=== PATIENT | male | born 1955 | race Caucasian/White ===

== ENCOUNTER 2020-02-18 11:39 | Inpatient (IN) | payer MEDICARE ==
[2020-02-18] MEDS ORDERED: SODIUM CHLORIDE 0.9% 500 ML 500 ML IV STA (12:12)
[2020-02-18 12:34] LABS: Basophils # (A) 0.1 k/uL (0-0.2); Basophils % (A) 1 %; Eosinophils # (A) 0.6 k/uL (0-0.7); Eosinophils % (A) 7 %; HCT 47.2 % (39.0-53.0); Lymphocytes # (A) 2.5 k/uL (1.0-4.8); Lymphocytes % (A) 28 %; MCH 30.1 pg (25.0-35.0); MCHC 31.8 g/dL (31.0-37.0); MCV 94.8 fL (80.0-100.0); Mean Platelet Volume 8.3; Monocytes # (A) 0.6 k/uL (0-1.0); Monocytes % (A) 7 %; Neutrophils # (A) 4.9 k/uL (1.3-7.7); Neutrophils % (A) 56 %; Platelet Count 354 k/uL (150-450); RBC 4.98 m/uL (4.30-5.90); RDW 13.9 % (11.5-15.5); WBC 8.7 k/uL (3.8-10.6)
[2020-02-18 12:43] LABS: ALT 23 U/L (4-49); AST 29 U/L (17-59); African American GFR (CKD) >90 (>60 ml/min/1.73 sqM); Albumin 4.1 g/dL (3.5-5.0); Alkaline Phosphatase 100 U/L (38-126); Anion Gap 6 mmol/L; Blood Urea Nitrogen 12 mg/dL (9-20); Calcium 9.3 mg/dL (8.4-10.2); Carbon Dioxide 26 mmol/L (22-30); Chloride 104 mmol/L (98-107); Glucose 207 mg/dL (74-99); Non-African American GFR(CKD) >90 (>60 ml/min/1.73 sqM); Sodium 136 mmol/L (137-145); Total Bilirubin 1.1 mg/dL (0.2-1.3); Total Protein 7.2 g/dL (6.3-8.2)
[2020-02-18 12:45] LABS: Potassium 5.2 mmol/L (3.5-5.1)
--- NOTE | 2020-02-18 12:53 | XR ---
EXAMINATION TYPE: XR chest 2V DATE OF EXAM: 02/18/2020 COMPARISON: Chest x-ray 06/23/2014 HISTORY: Difficulty breathing, hemoptysis TECHNIQUE: Frontal and lateral views of the chest are obtained. FINDINGS: Airspace disease is present in the right lower lobe. Lucency centrally is suggested. Promi nent lung lines with flattening the hemidiaphragms suggests underlying COPD. No evident pneumothorax or pleural effusion. Cardiothymic style silhouette, pulmonary vascularity and grant are not significan tly changed. Aorta is dense. IMPRESSION: Findings likely represent pneumonia, somewhat atypical appearance, follow-up is recommen ded.
[2020-02-18] MEDS ORDERED: RX INFO: IV CONTRAST WAS GIVEN 1 EACH MISC MISCELLANE PRN (13:02)
--- NOTE | 2020-02-18 13:41 | ED ---
General Adult HPI - General Chief complaint: Shortness of Breath Stated complaint: Coughing up blood Time Seen by Provider: 02/18/20 11:54 Source: patient, RN notes reviewed Mode of arrival: ambulatory Limitations: no limitations - History of Present Illness Initial comments: 64-year-old male with a past medical history of hyperlipidemia, CAD presents to the emergency room for a chief complaint of coughing up blood. Patient has had a slight cough for the past 3 weeks. States that he has had slight blood-tinged sputum which is worse at night. Patient denies shortness of breath. He denies chest pain. He denies any other cold or flu symptoms. Denies fevers or chills.Patient has no other complaints at this time including shortness of breath, chest pain, abdominal pain, nausea or vomiting, headache, or visual changes. - Related Data Home Medications Medication Instructions Recorded Confirmed Aspirin EC [Ecotrin Low Dose] 81 mg PO DAILY 02/18/20 02/18/20 Atorvastatin [Lipitor] 40 mg PO HS 02/18/20 02/18/20 Isosorbide Mononitrate ER [Imdur] 30 mg PO DAILY 02/18/20 02/18/20 Metoprolol Tartrate 25 mg PO BID 02/18/20 02/18/20 glyBURIDE/METFORMIN HCL 2 tab PO HS 02/18/20 02/18/20 [glyBURIDE/METFORMIN HCL 5-500 mg] Allergies Allergy/AdvReac Type Severity Reaction Status Date / Time No Known Allergies Allergy Verified 02/18/20 14:09 Review of Systems ROS Statement: Those systems with pertinent positive or pertinent negative responses have been documented in the HPI. ROS Other: All systems not noted in ROS Statement are negative. Past Medical History Past Medical History: Coronary Artery Disease (CAD), Chest Pain / Angina, Hyperlipidemia, Myocardial Infarction ([place]) History of Any Multi-Drug Resistant Organisms: None Reported Past Surgical History: Heart Catheterization, Orthopedic Surgery Past Psychological History: No Psychological Hx Reported Smoking Status: Former smoker Past Alcohol Use History: Occasional Past Drug Use History: Marijuana General Exam Limitations: no limitations General appearance: alert, in no apparent distress Head exam: Present: atraumatic, normocephalic, normal inspection Eye exam: Present: normal appearance, PERRL, EOMI. Absent: scleral icterus, conjunctival injection, periorbital swelling ENT exam: Present: normal exam, mucous membranes moist Neck exam: Present: normal inspection, full ROM. Absent: tenderness, meningismus, lymphadenopathy Respiratory exam: Present: normal lung sounds bilaterally. Absent: respiratory distress, wheezes, rales, rhonchi, stridor Cardiovascular Exam: Present: regular rate, normal rhythm, normal heart sounds. Absent: systolic murmur, diastolic murmur, rubs, gallop, clicks GI/Abdominal exam: Present: soft, normal bowel sounds. Absent: distended, tenderness, guarding, rebound, rigid Neurological exam: Present: alert Course Vital Signs 02/18/20 11:41 Temperature 97.7 F Pulse Rate 80 Respiratory 18 Rate Blood Pressure 127/82 O2 Sat by Pulse 95 Oximetry Medical Decision Making - Medical Decision Making Vitals are stable. CBC CMP unremarkable. Patient does have hyperglycemia with a history of kidney disease. Potassium of 5.2 is hemolyzed. Chest x-ray did show a possible pneumonia with atypical appearance. CT was ordered. CT chest with contrast was ordered which shows a large cavitary lesion measuring 7.4 cm in the right lower lobe. Has a wall with intermediate thickness and extensive surrounding groundglass density. Correlate for atypical fungal or mycobacterial infections. Dr. Javier spoke with Dr. Kumari who requests consult to Dr. Rowe. Dr. Javier spoke with Dr. Chavez thinks this is more likely a abscess. Patient will be admitted with antibiotics under Dr. Rowe's recommendation. - Lab Data Result diagrams: 02/18/20 12:18 02/18/20 12:18 Lab Results 02/18/20 02/18/20 Range/Units 12:18 12:18 WBC 8.7 (3.8-10.6) k/uL RBC 4.98 (4.30-5.90) m/uL Hgb 15.0 (13.0-17.5) gm/dL Hct 47.2 (39.0-53.0) % MCV 94.8 (80.0-100.0) fL MCH 30.1 (25.0-35.0) pg MCHC 31.8 (31.0-37.0) g/dL RDW 13.9 (11.5-15.5) % Plt Count 354 (150-450) k/uL Neutrophils % 56 % Lymphocytes % 28 % Monocytes % 7 % Eosinophils % 7 % Basophils % 1 % Neutrophils # 4.9 (1.3-7.7) k/uL Lymphocytes # 2.5 (1.0-4.8) k/uL Monocytes # 0.6 (0-1.0) k/uL Eosinophils # 0.6 (0-0.7) k/uL Basophils # 0.1 (0-0.2) k/uL Sodium 136 L (137-145) mmol/L Potassium 5.2 H (3.5-5.1) mmol/L Chloride 104 (98-107) mmol/L Carbon Dioxide 26 (22-30) mmol/L Anion Gap 6 mmol/L BUN 12 (9-20) mg/dL Creatinine 0.76 (0.66-1.25) mg/dL Est GFR (CKD-EPI)AfAm >90 (>60 ml/min/1.73 sqM) Est GFR (CKD-EPI)NonAf >90 (>60 ml/min/1.73 sqM) Glucose 207 H (74-99) mg/dL Calcium 9.3 (8.4-10.2) mg/dL Total Bilirubin 1.1 (0.2-1.3) mg/dL AST 29 (17-59) U/L ALT 23 (4-49) U/L Alkaline Phosphatase 100 (38-126) U/L Total Protein 7.2 (6.3-8.2) g/dL Albumin 4.1 (3.5-5.0) g/dL Disposition Clinical Impression: Cavitary lesion of lung Disposition: ADMITTED IP TO THIS HOSP Condition: Fair Is patient prescribed a controlled substance at d/c from ED?: No Referrals: Marcellus Raygoza DO [Primary Care Provider] - 1-2 days Time of Disposition: 14:56
--- NOTE | 2020-02-18 13:57 | CT ---
EXAMINATION TYPE: CT chest w con DATE OF EXAM: 02/18/2020 COMPARISON: Radiograph 02/18/2020 HISTORY: 64-year-old male Shortness of breath with hemoptysis TECHNIQUE: Contiguous axial scanning of the chest after the administration of 100 mL of Isovue 300. Coronal/sagittal reconstructions performed. CT DLP: 661.9mGycm. Automatic exposure control utilized for a dose reduction. FINDINGS: Heart normal size without pericardial effusion. Three-vessel coronary artery calcifications are prese nt. Aorta normal caliber with very direct takeoff of the left vertebral artery directly from the aortic a rch. Borderline size left paratracheal lymph nodes measure up to 1 cm. Frankly enlarged subcarinal lymph node at 4.2 x 3.4 cm. Right hilar lymph node at 2.9 x 1.6 cm an additional smaller right-sided bronchial lymph nodes measur ing up to 1.8 x 1.1 cm. There is a cavitary lesion with intermediate thickened wall measuring 7.4 x 5.0 x 6.6 cm within the r ight lower lobe. Extensive surrounding groundglass opacity. Smaller area of cavitation just below lorena suring 1.9 cm. Nonspecific 6 mm posterior left upper lobe pulmonary nodule, axial image 17 should be reassessed at f ollow-up. Suspect underlying hepatic steatosis. Slight thickening of the right adrenal gland up to 2.3 x 1.2 cm is nonspecific. Bones: Moderate degenerative disc disease mid to lower thoracic spine. No osseous destructive process . IMPRESSION: 1. Large cavitary lesion measuring 7.4 cm in the right lower lobe has a wall with intermediate thickn ess and extensive surrounding groundglass density. Correlate for atypical fungal or mycobacterial inf ections. Given a second adjacent smaller area of 1.9 cm cavitation just below and the associated grou ndglass, an infectious etiology is favored over cavitary neoplasm. 2. Right hilar and subcarinal lymphadenopathy measuring up to 4.3 cm. Probably reactive. This should be followed to exclude the possibility of metastatic disease. 3. A 6 mm left upper lobe pulmonary nodule should also be reassessed at follow-up. 4. A 2.3 cm right adrenal nodule. Follow-up recommended. Statistically, a benign adrenal adenoma is s uspected.
[2020-02-18] MEDS ORDERED: PNEUMONIA PROTOCOL UTILIZED 1 EACH MISC PO PRN (14:28)
[2020-02-18] MEDS ORDERED: IPRATROPIUM-ALBUTEROL 3 ML NEB INHALATION PRN (14:28)
[2020-02-18] MEDS ORDERED: VANCOMYCIN IV PER PHARMACY 1 EACH MISC MISCELLANE PRN (14:41)
[2020-02-18] MEDS ORDERED: AMPICILLIN-SULBACTAM 3 GM in SODIUM CHLORIDE 0.9% 100 ML IVPB STA (14:41)
[2020-02-18] MEDS ORDERED: VANCOMYCIN 1,750 MG in SODIUM CHLORIDE 0.9% 500 ML 500 ML IVPB ONE (15:00)
[2020-02-18] MEDS ORDERED: IPRATROPIUM-ALBUTEROL 3 ML NEB INHALATION SCH (16:00)
[2020-02-18] MEDS ORDERED: ALBUTEROL HFA INHALER INHALATION PRN (16:13)
[2020-02-18] MEDS: AMPICILLIN-SULBACTAM 3 GM in SODIUM CHLORIDE 0.9% 100 ML IVPB SCH ×2 (16:31→23:41)
[2020-02-18] MEDS: ALBUTEROL HFA INHALER INHALATION SCH ×2 (17:59→23:24)
[2020-02-18] MEDS: SODIUM CHLORIDE 0.9% 1,000 ML IV SCH ×2 (20:29→23:42)
[2020-02-18] MEDS: HEPARIN SODIUM,PORCINE 5,000 UNIT/ML 1 ML VIAL SQ SCH (21:24)
[2020-02-18] MEDS: ATORVASTATIN 40 MG TAB PO SCH (21:30)
[2020-02-18] MEDS: METOPROLOL TARTRATE 25 MG TAB PO SCH (21:30)
--- NOTE | 2020-02-18 22:14 | P.HPIM ---
History of Present Illness H&P Date: 02/18/20 Chief Complaint: Severe dyspnea and shortness of breath, hemoptysis and cavi tation in the ri 64-year-old mildly overweight male one of Dr. Levin patient with past medical history of coronary artery disease, diabetes, hypertension, COPD and mild PAD who is a former smoker pack-a-day for over 40 years had a quit 4 years ago who has not been hospitalized in a while apparently developed to have significant and worsening shortness of breath for the last 3 weeks become much worse last few days patient developed to have hemoptysis with productive cough along with significant shortness of breath with minimum exertion symptoms become much worse associated with fever and chills. Patient has not been hospitalized recently or exposed to any infectious process including Covid 19 or tuberculosis. He presented to the emergency department with above symptoms was seen and evaluated surprisingly his white blood cell was normal blood sugar was mildly elevated chest x-ray showed infection with pneumonia on the right lower lobe, CT of the chest showed large cavitation of 7.4 cm of the right lower lobe surrounded with groundglass an infectious etiology is favored over cavitary neoplasm finding might be consistent with atypical fungal or mycobacterial infection also had right hilar and subcarinal lymphadenopathy measuring up to 4.3 cm probably reactive cannot exclude the possibility of metastasis, 6 mm left upper lobe pulmonary nodular, 2.3 cm right adrenal nodular. Patient was started on Unasyn along with vancomycin updraft treatment was start steroid as well co nsult pulmonary and prepare for possible bronchoscopy and further management might require bronchoscopy and biopsy for further diagnosis. Review of Systems CONSTITUTIONAL: Well-developed no acute respiratory distress. Mildly overweight EYES: No icterus sclerae, no conjunctivitis. EARS, NOSE, MOUTH, THROAT, and FACE: No sore throat, lymphadenopathy, carotid bruits or deformity. RESPIRATORY: Positive shortness of breath cough and wheezes with cavitary infection in the right lower lobe.. CARDIOVASCULAR: Positive PND orthopnea palpitations. GASTROINTESTINAL: No Abd pain, Nausea or vomiting, no Diarrhea or constipation, No GI Bleed, no distention or masses. GENITOURINARY: Negative for Hematuria or UTI, no kidney stones. INTEGUMENT/BREAST: Negative for any muscular injury with mild osteoarthritis.. HEMATOLOGIC/LYMPHATIC: Negative for bleed or purpura. MUSCULOSKELTAL: Negative for Myalgia or arthralgia. NEURLOGICAL: No LOC, Sz or syncope, blurred vision dizziness or abnormality.. BEHAVIORAL/PSYCH: Negative. ENDOCRINE: Negative. Social history: Patient quit smoking 4 years ago he smoked pack a day for 40 years, drinks alcohol socially, no sign of obstructive sleep apnea patient is never had any children. Family history: Father age 80 from CAD, mother in her 80s from CAD, patient had 5 siblings 3 over the past 1 from diabetes, one from CAD, and one from lung cancer. 2 siblings are living with diabetes. All systems: negative Constitutional: Denies chills, Denies fever Eyes: denies blurred vision, denies pain Ears, nose, mouth and throat: Denies headache, Denies sore throat Cardiovascular: Denies chest pain, Denies shortness of breath Respiratory: Denies cough Gastrointestinal: Denies abdominal pain, Denies diarrhea, Denies nausea, Denies vomiting Musculoskeletal: Denies myalgias Integumentary: Denies pruritus, Denies rash Neurological: Denies numbness, Denies weakness Psychiatric: Denies anxiety, Denies depression Endocrine: Denies fatigue, Denies weight change Past Medical History Past Medical History: Coronary Artery Disease (CAD), Chest Pain / Angina, Hyperlipidemia, Myocardial Infarction ([place]) History of Any Multi-Drug Resistant Organisms: None Reported Past Surgical History: Heart Catheterization, Orthopedic Surgery Past Psychological History: No Psychological Hx Reported Smoking Status: Former smoker Past Alcohol Use History: Occasional Past Drug Use History: Marijuana Medications and Allergies Home Medications Medication Instructions Recorded Confirmed Type Aspirin EC [Ecotrin Low Dose] 81 mg PO DAILY 02/18/20 02/18/20 History Atorvastatin [Lipitor] 40 mg PO HS 02/18/20 02/18/20 History Isosorbide Mononitrate ER [Imdur] 30 mg PO DAILY 02/18/20 02/18/20 History Metoprolol Tartrate 25 mg PO BID 02/18/20 02/18/20 History glyBURIDE/METFORMIN HCL 2 tab PO HS 02/18/20 02/18/20 History [glyBURIDE/METFORMIN HCL 5-500 mg] Allergies Allergy/AdvReac Type Severity Reaction Status Date / Time No Known Allergies Allergy Verified 02/18/20 14:09 Physical Exam Vitals: Vital Signs Temp Pulse Resp BP Pulse Ox 02/18/20 16:42 95 18 119/85 95 02/18/20 11:41 97.7 F 80 18 127/82 95 Intake and Output 02/18/20 02/18/20 02/18/20 06:59 14:59 22:59 Other: Weight 102.058 kg General Appearance: Alert, cooperative, no distress, appears stated age. Neck HEENT: Supple, no lymphadenopathy, no thyroid enlargement, no carotid bruits. Lungs: Decreased breath sound bilaterally with fine rhonchi positive crackles in the bases with mild expiratory wheezes. Chest Wall: Chest wall normal expansion with deep inspiration no tenderness and no deformity was found on exam, no costochondral pain or discomfort. Heart: Regular rate and rhythm, S1, S2 normal, no murmur, rub or gallop. Back: Symmetric, no curvature, ROM normal, no CVA tenderness. Abdomen: Soft, non-tender, bowel sounds active all four quadrants, no masses, no organomegaly. Extremities: Extremities normal, atraumatic, no cyanosis or edema. Pulses: 2+ and symmetric. Skin: Skin color, texture, tugor normal, no rashes or lesions. Neurologic: Alert oriented x3 cranial nerves II through XII intact, no motor deficit, no abnormal balance or gait. Results CBC & Chem 7: 02/18/20 12:18 02/18/20 12:18 Labs: Abnormal Lab Results - Last 24 Hours (Table) 02/18/20 Range/Units 12:18 Sodium 136 L (137-145) mmol/L Potassium 5.2 H (3.5-5.1) mmol/L Glucose 207 H (74-99) mg/dL Thrombosis Risk Factor Assmnt - DVT/VTE Prophylaxis DVT/VTE Prophylaxis: Pharmacologic Prophylaxis ordered, Mechanical Prophylaxis ordered Assessment and Plan Assessment: 1 severe dyspnea and shortness of breath: Patient be admitted to the hospital, continue Unasyn along with vancomycin, consult pulmonary start steroids along with updraft treatment and Pulmicort try to come with tissue diagnosis and cult ure if possible. 2 large cavitary in the right lower lobe with the possibility of infection versus malignancy, further management including biopsy might be highly recommended. 3 possible lung metastasis in the mitchell-cranial area: Again could be lung cancer with metastasis which peaked stage III lung cancer. 4 CAD: Patient seen cardiology regular basis continue medical management. 5 type 2 diabetes: Remain on oral hypoglycemic agent continue Accu-Chek with sliding scales coverage for now diet controlled. 6 hyperlipidemia: Remain on atorvastatin 40 mg daily. 7 hypertension: Continue metoprolol titrate 25 mg twice a day. 8 electrolyte imbalance: Remain on with hydration found mild hyperkalemia. 9 DVT prophylaxis: Patient be on heparin subcutaneous. 10 GI prophylaxis: Patient be on Pepcid 20 mg daily. CODE STATUS: Full code. Admit patient to the inpatient service for more than 2 night stay.
[2020-02-19] MEDS: VANCOMYCIN 1,750 MG in SODIUM CHLORIDE 0.9% 500 ML 500 ML IVPB SCH ×2 (05:39→17:35)
[2020-02-19 07:26] LABS: Glucose,Whole Blood 204 mg/dL (75-99)
[2020-02-19] MEDS: ALBUTEROL HFA INHALER INHALATION SCH ×4 (07:54→19:11)
--- NOTE | 2020-02-19 08:34 | XR ---
EXAMINATION TYPE: XR chest 1V portable DATE OF EXAM: 02/19/2020 COMPARISON: 02/18/2020 chest x-ray and CT chest INDICATION: Pneumonia TECHNIQUE: Single frontal view of the chest is obtained. FINDINGS: The heart size is normal. The pulmonary vasculature is normal. There is a right lower lobe infiltrate. Correlate for pneumonia. There may be some central hypodensit y. Cavitation is a large air bulla as evident on the CT is identified IMPRESSION: 1. Right lower lobe infiltrate, stable from comparison
[2020-02-19] MEDS: AMPICILLIN-SULBACTAM 3 GM in SODIUM CHLORIDE 0.9% 100 ML IVPB SCH ×2 (08:41→17:02)
[2020-02-19] MEDS: METOPROLOL TARTRATE 25 MG TAB PO SCH ×2 (08:42→20:17)
[2020-02-19] MEDS: ISOSORBIDE MONONITRATE ER 30 MG TAB.ER.24H PO SCH (08:42)
[2020-02-19] MEDS: FAMOTIDINE 20 MG TAB PO SCH (08:43)
[2020-02-19] MEDS: ASPIRIN 81 MG PO SCH (08:43)
[2020-02-19] MEDS: HEPARIN SODIUM,PORCINE 5,000 UNIT/ML 1 ML VIAL SQ SCH ×2 (08:43→20:17)
[2020-02-19 09:23] LABS: African American GFR (CKD) 107.9 (60.0-200.0); Non-African American GFR(CKD) 93.1 (60.0-200.0)
[2020-02-19] MEDS: SODIUM CHLORIDE 0.9% 1,000 ML IV SCH (11:20)
[2020-02-19 12:12] LABS: Glucose,Whole Blood 248 mg/dL (75-99)
--- NOTE | 2020-02-19 13:49 | P.PN ---
Subjective Progress Note Date: 02/19/20 HISTORY OF PRESENT ILLNESS 64-year-old mildly overweight male one of Dr. Levin patient with past medical history of coronary artery disease, diabetes, hypertension, COPD and m ild PAD who is a former smoker pack-a-day for over 40 years had a quit 4 years ago who has not been hospitalized in a while apparently developed to have significant and worsening shortness of breath for the last 3 weeks become much worse last few days patient developed to have hemoptysis with productive cough along with significant shortness of breath with minimum exertion symptoms become much worse associated with fever and chills. Patient has not been hospitalized recently or exposed to any infectious process including Covid 19 or tuberculosis. He presented to the emergency department with above symptoms was seen and evaluated surprisingly his white blood cell was normal blood sugar was mildly elevated chest x-ray showed infection with pneumonia on the right lower lobe, CT of the chest showed large cavitation of 7.4 cm of the right lower lobe surrounded with groundglass an infectious etiology is favored over cavitary neoplasm finding might be consistent with atypical fungal or mycobacterial infection also had right hilar and subcarinal lymphadenopathy measuring up to 4.3 cm probably reactive cannot exclude the possibility of metastasis, 6 mm left upper lobe pulmonary nodular, 2.3 cm right adrenal nodular. Patient was started on Unasyn along with vancomycin updraft treatment was start steroid as well consult pulmonary and prepare for possible bronchoscopy and further management might require bronchoscopy and biopsy for further diagnosis. 02/18: The patient is in TB isolation. We will add in Covid and influenza testing. Patient is followed by Dr. Rowe and patient may require bronchoscopy early next week. Sputum culture was sent this morning. Patient continues to have cough with sputum and hemoptysis. Breathing status is stable and improved from yesterday. He has been afebrile, heart rate 81, blood pressure 131/74, pulse ox 93% on room air. Patient is currently on Unasyn and vancomycin. Repeat chest x-ray reveals right lower lobe infiltrate and stable. REVIEW OF SYSTEMS CONSTITUTIONAL: Well-developed no acute respiratory distress. Mildly overweight. No fevers. EYES: No icterus sclerae, no conjunctivitis. EARS, NOSE, MOUTH, THROAT, and FACE: No sore throat, lymphadenopathy, carotid bruits or deformity. RESPIRATORY: Positive shortness of breath cough and wheezes with cavitary infection in the right lower lobe.. CARDIOVASCULAR: Positive PND orthopnea palpitations. GASTROINTESTINAL: No Abd pain, Nausea or vomiting, no Diarrhea or constipation, No GI Bleed, no distention or masses. GENITOURINARY: Negative for Hematuria or UTI, no kidney stones. INTEGUMENT/BREAST: Negative for any muscular injury with mild osteoarthritis.. HEMATOLOGIC/LYMPHATIC: Negative for bleed or purpura. MUSCULOSKELTAL: Negative for Myalgia or arthralgia. NEURLOGICAL: No LOC, Sz or syncope, blurred vision dizziness or abnormality.. BEHAVIORAL/PSYCH: Negative. ENDOCRINE: Negative. PHYSICAL EXAMINATION General Appearance: Alert, cooperative, no distress, appears stated age. Patient is in no acute distress. Neck HEENT: Supple, no lymphadenopathy, no thyroid enlargement, no carotid bruits. Lungs: Decreased breath sound bilaterally with fine rhonchi positive crackles in the bases with mild expiratory wheezes. Chest Wall: Chest wall normal expansion with deep inspiration no tenderness and no deformity was found on exam, no costochondral pain or discomfort. Heart: Regular rate and rhythm, S1, S2 normal, no murmur, rub or gallop. Back: Symmetric, no curvature, ROM normal, no CVA tenderness. Abdomen: Soft, non-tender, bowel sounds active all four quadrants, no masses, no organomegaly. Extremities: Extremities normal, atraumatic, no cyanosis or edema. Pulses: 2+ and symmetric. Skin: Skin color, texture, tugor normal, no rashes or lesions. Neurologic: Alert oriented x3 cranial nerves II through XII intact, no motor deficit, no abnormal balance or gait. ASSESSMENT AND PLAN 1 severe dyspnea and shortness of breath with possible right lower lobe infiltrate or pneumonia, rule out infectious source, malignancy: Continue Unasyn along with vancomycin, consult pulmonary start steroids along with updraft treatment and Pulmicort try to come with tissue diagnosis and culture if possible. 2 large cavitary in the right lower lobe with the possibility of infection versus malignancy, further management including biopsy might be highly recommended. 3 possible lung metastasis in the mitchell-cranial area: Again could be lung cancer with metastasis which peaked stage III lung cancer. 4 CAD: Patient seen cardiology regular basis continue medical management. 5 type 2 diabetes: Remain on oral hypoglycemic agent continue Accu-Chek with sliding scales coverage for now diet controlled. 6 hyperlipidemia: Remain on atorvastatin 40 mg daily. 7 hypertension: Continue metoprolol titrate 25 mg twice a day. 8 electrolyte imbalance: Remain on with hydration found mild hyperkalemia. 9 DVT prophylaxis: Patient be on heparin subcutaneous. 10 GI prophylaxis: Patient be on Pepcid 20 mg daily. CODE STATUS: Full code. DISCHARGE PLAN Return home early to mid next week expected. Impression and plan of care have been directed as dictated by the signing physician. Ciara Wallis nurse practitioner acting as scribe for signing physician. Objective - Vital Signs Vital signs: Vital Signs Temp 98.0 F 02/19/20 05:00 Pulse 81 02/19/20 05:00 Resp 18 02/19/20 05:00 BP 131/74 02/19/20 05:00 Pulse Ox 93 L 02/19/20 05:00 Intake & Output 02/18/20 02/19/20 02/19/20 18:59 06:59 18:59 Intake Total 3380 Balance 3380 Weight 102.058 kg Intake: Intake, IV Titration 2300 Amount Ampicillin-Sulbactam 3 gm 100 In Sodium Chloride 0.9% 100 ml @ 200 mls/hr IVPB ONCE STA Rx#:[id number] Sodium Chloride 0.9% 1, 1200 000 ml @ 100 mls/hr IV . Q10H DIA Rx#:[id number] Vancomycin 1,750 mg In 500 Sodium Chloride 0.9% 500 ml 500 ml @ 167 mls/hr IVPB ONCE ONE Rx#: [id number] Vancomycin 1,750 mg In 500 Sodium Chloride 0.9% 500 ml 500 ml @ 167 mls/hr IVPB Q12H DIA Rx#: [id number] Oral 1080 Other: # Voids 2 - Labs CBC & Chem 7: 02/18/20 12:18 02/19/20 05:53 Labs: Abnormal Lab Results - Last 24 Hours (Table) 02/18/20 02/19/20 Range/Units 12:18 07:18 Sodium 136 L (137-145) mmol/L Potassium 5.2 H (3.5-5.1) mmol/L Glucose 207 H (74-99) mg/dL POC Glucose (mg/dL) 204 H (75-99) mg/dL
--- NOTE | 2020-02-19 15:12 | P.CNPUL ---
History of Present Illness Consult date: 02/19/20 Requesting physician: Warren Simeon Reason for consult: other (Hemoptysis) Chief complaint: Hemoptysis History of present illness: This is a very pleasant 64-year-old gentleman who follows with Dr. Raygoza as his primary care provider. He has history of diabetes mellitus, hypertension, hyperlipidemia, obesity a former smoker, occasional marijuana use. He presented to the emergency room yesterday after developing worsening hemoptysis. He states he has been coughing up blood for approximately 3 weeks now. He states he has been very active and no other symptoms. He's been hunting, out on his ATV and doing physical work. No fever, chills or night sweats. No nausea, vomiting or diarrhea. Denies any weight loss. Denies any recent travel. Denies any recent pneumonias. He has been coughing up blood on nearly a daily basis. Computed tomography scan of the chest reveals a large cavitary lesion measuring 7.4 cm in the right lower lobe with a wall with intermediate thickness and extensive surrounding groundglass density. Suspicious for atypical fungal or mycobacterial infections. There is a second adjacent smaller area of 1.9 cm just below with the associated groundglass favoring infectious over neoplasm. There is a right hilar and subcarinal lymphadenopathy measuring up to 4.3 cm suspect reactive. Cannot exclude metastatic disease. There is a 6 mm left upper lobe nodule. A 2.3 cm right adrenal nodule, benign adrenal adenoma is suspected. He is seen today in consultation on the regular medical floor. He is in TB isolation precautions. He is awake and alert in no acute distress. He denies any shortness of breath. Continues to cough up bloody sputum. Sample of which will be sent to the lab. Continues to deny any other symptoms. He remains afebrile. Hemodynamically stable. Maintain O2 saturations in the 90s on room air. White count 8.7. Hemoglobin 15.0. Sodium 136. Potassium 5.2. Creatinine 0.76. Influenza screen negative. CoVID 19 screen pending. Currently on vancomycin and Unasyn. Review of Systems REVIEW OF SYSTEMS: CONSTITUTIONAL: Denies any recent significant weight loss or weight gain. EYES: Denies change in vision. EARS, NOSE, MOUTH, THROAT: Denies headaches, denies sore throat. CARDIOVASCULAR: Denies chest pain, palpitations or syncopal episodes. RESPIRATORY: Hemoptysis. Denies shortness of breath, cough, congestion. GASTROINTESTINAL: Denies change in appetite, denies abdominal pain GENITOURINARY: Denies hematuria, denies infections. MUSKULOSKELETAL: Denies pain, denies swelling. INTEGUMENTARY: Denies rash, denies eczema. NEUROLOGICAL: Denies recent memory loss, no recent seizure activity. PSYCHIATRIC: Denies anxiety, denies depression. HEMATOLOGIC/LYMPHATIC: Denies anemia, denies enlarged lymph nodes. Past Medical History Past Medical History: Coronary Artery Disease (CAD), Chest Pain / Angina, Hyperlipidemia, Myocardial Infarction ([place]) History of Any Multi-Drug Resistant Organisms: None Reported Past Surgical History: Heart Catheterization, Orthopedic Surgery Past Psychological History: No Psychological Hx Reported Smoking Status: Former smoker Past Alcohol Use History: Occasional Past Drug Use History: Marijuana Medications and Allergies Home Medications Medication Instructions Recorded Confirmed Type Aspirin EC [Ecotrin Low Dose] 81 mg PO DAILY 02/18/20 02/18/20 History Atorvastatin [Lipitor] 40 mg PO HS 02/18/20 02/18/20 History Isosorbide Mononitrate ER [Imdur] 30 mg PO DAILY 02/18/20 02/18/20 History Metoprolol Tartrate 25 mg PO BID 02/18/20 02/18/20 History glyBURIDE/METFORMIN HCL 2 tab PO HS 02/18/20 02/18/20 History [glyBURIDE/METFORMIN HCL 5-500 mg] Allergies Allergy/AdvReac Type Severity Reaction Status Date / Time No Known Allergies Allergy Verified 02/18/20 14:09 Physical Exam Vitals: Vital Signs Temp Pulse Pulse Resp BP BP Pulse Ox 02/19/20 13:00 98.1 F 79 17 112/72 94 L 02/19/20 05:00 98.0 F 81 18 131/74 93 L 02/19/20 00:00 22 02/18/20 21:36 98 F 106 H 21 142/70 94 L 02/18/20 21:32 98 F 106 H 21 142/70 94 L 02/18/20 18:00 119/85 02/18/20 17:30 119/85 02/18/20 17:00 119/85 94 L 02/18/20 16:42 95 18 119/85 95 02/18/20 16:34 95 Intake and Output 02/18/20 02/19/20 02/19/20 22:59 06:59 14:59 Intake Total 1720 1660 Balance 1720 1660 Intake: Intake, IV Titration 1000 1300 Amount Ampicillin-Sulbactam 3 gm 100 In Sodium Chloride 0.9% 100 ml @ 200 mls/hr IVPB ONCE STA Rx#:[id number] Sodium Chloride 0.9% 1, 400 800 000 ml @ 100 mls/hr IV . Q10H [facility] Rx#:[id number] Vancomycin 1,750 mg In 500 Sodium Chloride 0.9% 500 ml 500 ml @ 167 mls/hr IVPB ONCE ONE Rx#: [id number] Vancomycin 1,750 mg In 500 Sodium Chloride 0.9% 500 ml 500 ml @ 167 mls/hr IVPB Q12H [facility] Rx#: [id number] Oral 720 360 Other: Voiding Method Toilet # Voids 1 2 GENERAL EXAM: Alert, pleasant 64-year-old gentleman, on room air comfortable in no apparent distress. HEAD: Normocephalic. EYES: Normal reaction of pupils, equal size. NOSE: Clear with pink turbinates. THROAT: No erythema or exudates. NECK: No masses, no JVD. CHEST: No chest wall deformity. LUNGS: Equal air entry with scattered rhonchi, crackles in the right posterior base. CVS: S1 and S2 normal with no audible murmur, regular rhythm. ABDOMEN: No hepatosplenomegaly, normal bowel sounds, no guarding or rigidity. SPINE: No scoliosis or deformity SKIN: No rashes CENTRAL NERVOUS SYSTEM: No focal deficits, tone is normal in all 4 extremities. EXTREMITIES: There is no peripheral edema. No clubbing, no cyanosis. Peripheral pulses are intact. Results - Laboratory Findings CBC and BMP: 02/18/20 12:18 02/19/20 05:53 Abnormal lab findings: Abnormal Labs 02/18/20 02/19/20 02/19/20 12:18 05:53 07:18 Sodium 136 L Potassium 5.2 H Glucose 207 H POC Glucose (mg/dL) 204 H C-Reactive Protein 23.5 H 02/19/20 12:01 Sodium Potassium Glucose POC Glucose (mg/dL) 248 H C-Reactive Protein - Diagnostic Findings Chest x-ray: image reviewed CT scan - chest: image reviewed Assessment and Plan Assessment: 1 Hemoptysis secondary to large cavitary lesion measuring 7.4 cm in the right lower lobe with a wall with an term immediate thickness and extensive surrounding groundglass density. Suspect atypical fungal or mycobacterial infection. There is a second adjacent smaller area of 1.9 cm cavitation just below the associated groundglass with infectious etiology favored over cavitary neoplasm. 2 Right hilar and subcarinal lymphadenopathy measuring up to 4.3 cm. Suspect reactive. Cannot completely exclude metastatic disease. Incidental 6 mm left upper lobe pulmonary nodule. 3 2.3 cm right adrenal nodule suspect benign adrenal adenoma versus metastasis. 4 History of significant 40 year smoking history however quit 4 years ago. Occasional marijuana use. 5 Obesity 6 Coronary artery disease 7 Hyperlipidemia 8 Diabetes mellitus 9 Hypertension Plan: The patient was seen and evaluated by Dr. Chavez Chest x-ray, CAT scan and labs reviewed Suspect atypical pneumonia, fungal, Mycobacterium Sputum culture pending If no significant findings we'll plan for bronchoscopy with BAL of the right lower lobe Continue vancomycin and Unasyn for now Continue isolation precautions ID is on the case We'll continue to follow and make further recommendations based on his clinical status I, the cosigning physician, performed a history & physical examination of the patient. Lungs sounds with rhonchi, crackles in the right posterior base. Maintaining good O2 saturations in the 90s on room air. I discussed the assessment and plan of care with my nurse practitioner, Shirlene Meza. I attest to the above consultation as dictated by her. Time with Patient: Greater than 30
[2020-02-19 17:07] LABS: Glucose,Whole Blood 185 mg/dL (75-99)
[2020-02-19] MEDS: ATORVASTATIN 40 MG TAB PO SCH (20:17)
[2020-02-19 21:26] LABS: Glucose,Whole Blood 185 mg/dL (75-99)
[2020-02-20] MEDS: AMPICILLIN-SULBACTAM 3 GM in SODIUM CHLORIDE 0.9% 100 ML IVPB SCH ×4 (00:02→23:26)
[2020-02-20] MEDS: SODIUM CHLORIDE 0.9% 1,000 ML IV SCH ×4 (00:03→23:27)
--- NOTE | 2020-02-20 00:08 | P.CONS ---
History of Present Illness - Reason for Consult Consult date: 02/19/20 Rule out TB Requesting physician: Warren Simeon - Chief Complaint Hemoptysis 3 weeks - History of Present Illness Patient is a 64 year old male with a past medical history significant for [id number] smoking however quit a few years ago patient presenting to [facility] ER yesterday for evaluation of hemoptysis of 3 weeks duration, patient denies having any fever or any chills or any night sweats, patient denies having any purulent sputum denies having any chest pain or shortness of breath minimal cough no urinary symptoms no nausea no vomiting no abdominal pain or any diarrhea, denies having any recent weight loss, patient did not have any family history of tuberculosis or exposure to somebody with TB did mention he may have a skin test for TB in school and those were negative with the symptoms the patient was evaluated by ER physician on arrival to the ER, the patient was afebrile the patient did have a normal white count, the patient did have a CT of the chest which did show some large cavitated lesion measuring 7.4 cm in the right lower lobe with intermediate thickness and extensive surrounding groundglass density with concern for possible infectious etiology patient has been admitted to the hospital with airborne isolation patient was started on Unasyn and vancomycin infectious disease was consulted for further management of antibiotic therapy Review of Systems Positive point has been mentioned in the HPI rest of the systems are negative Past Medical History Past Medical History: Coronary Artery Disease (CAD), Chest Pain / Angina, Hyperlipidemia, Myocardial Infarction ([place]) History of Any Multi-Drug Resistant Organisms: None Reported Past Surgical History: Heart Catheterization, Orthopedic Surgery Past Psychological History: No Psychological Hx Reported Smoking Status: Former smoker Past Alcohol Use History: Occasional Past Drug Use History: Marijuana Medications and Allergies Home Medications Medication Instructions Recorded Confirmed Type Aspirin EC [Ecotrin Low Dose] 81 mg PO DAILY 02/18/20 02/18/20 History Atorvastatin [Lipitor] 40 mg PO HS 02/18/20 02/18/20 History Isosorbide Mononitrate ER [Imdur] 30 mg PO DAILY 02/18/20 02/18/20 History Metoprolol Tartrate 25 mg PO BID 02/18/20 02/18/20 History glyBURIDE/METFORMIN HCL 2 tab PO HS 02/18/20 02/18/20 History [glyBURIDE/METFORMIN HCL 5-500 mg] Allergies Allergy/AdvReac Type Severity Reaction Status Date / Time No Known Allergies Allergy Verified 02/18/20 14:09 Physical Exam Vitals: Vital Signs Temp Pulse Pulse Resp BP BP Pulse Ox 02/19/20 05:00 98.0 F 81 18 131/74 93 L 02/19/20 00:00 22 02/18/20 21:36 98 F 106 H 21 142/70 94 L 02/18/20 21:32 98 F 106 H 21 142/70 94 L 02/18/20 18:00 119/85 02/18/20 17:30 119/85 02/18/20 17:00 119/85 94 L 02/18/20 16:42 95 18 119/85 95 02/18/20 16:34 95 Intake and Output 02/18/20 02/19/20 02/19/20 22:59 06:59 14:59 Intake Total 1720 1660 Balance 1720 1660 Intake: Intake, IV Titration 1000 1300 Amount Ampicillin-Sulbactam 3 gm 100 In Sodium Chloride 0.9% 100 ml @ 200 mls/hr IVPB ONCE STA Rx#:[id number] Sodium Chloride 0.9% 1, 400 800 000 ml @ 100 mls/hr IV . Q10H [facility] Rx#:[id number] Vancomycin 1,750 mg In 500 Sodium Chloride 0.9% 500 ml 500 ml @ 167 mls/hr IVPB ONCE ONE Rx#: [id number] Vancomycin 1,750 mg In 500 Sodium Chloride 0.9% 500 ml 500 ml @ 167 mls/hr IVPB Q12H [facility] Rx#: [id number] Oral 720 360 Other: Voiding Method Toilet # Voids 1 2 GENERAL DESCRIPTION: An elderly male lying in bed, no distress. No tachypnea or accessory muscle of respiration use. HEENT: Shows Pallor , no scleral icterus. Oral mucous membrane is dry. No pharyn geal erythema or thrush NECK: Trachea central, no thyromegaly. LUNGS: Unlabored breathing. Decreased intensity of breath sounds. No wheeze or crackle. HEART: S1, S2, regular rate and rhythm. No loud murmur ABDOMEN: Soft, no tenderness , guarding or rigidity, no organomegaly EXTREMITIES: No edema of feet. SKIN: No rash, no masses palpable. NEUROLOGICAL: The patient is awake, alert, oriented x3, mood and affect normal. Results CBC & Chem 7: 02/18/20 12:18 02/19/20 05:53 Labs: Abnormal Lab Results - Last 24 Hours (Table) 02/18/20 02/19/20 02/19/20 Range/Units 12:18 07:18 12:01 Sodium 136 L (137-145) mmol/L Potassium 5.2 H (3.5-5.1) mmol/L Glucose 207 H (74-99) mg/dL POC Glucose (mg/dL) 204 H 248 H (75-99) mg/dL Assessment and Plan Assessment: 1- patient presented to the hospital with hemoptysis of 3 weeks duration in this patient who did have a [id number]-[id number] of smoking patient with no fever or elevated white count clinically doubt pneumonia or pulmonary tuberculosis and high clinical suspicious for underlying malignancy (1) Cavitary lesion of lung Current Visit: Yes Status: Acute Code(s): J98.4 - OTHER DISORDERS OF LUNG SNOMED Code(s): 125775098 Plan: 1- we will obtain ESR and CRP pro calcitonin and quantiferon TB gold test 2- sputum AFB daily 3 3-sputum for Gram stain and culture 4-continue with Unasyn and vancomycin while waiting for the culture and workup to finalize We will follow on clinical condition and cultures to further adjust medication if needed Thank you for this consultation will follow this patient with you Time with Patient: Greater than 30
[2020-02-20] MEDS: VANCOMYCIN 1,750 MG in SODIUM CHLORIDE 0.9% 500 ML 500 ML IVPB SCH ×2 (05:17→18:07)
[2020-02-20 05:23] LABS: Glucose,Whole Blood 184 mg/dL (75-99)
[2020-02-20 07:20] LABS: Glucose,Whole Blood 217 mg/dL (75-99)
[2020-02-20] MEDS: ALBUTEROL HFA INHALER INHALATION SCH ×4 (07:52→21:12)
[2020-02-20] MEDS: HEPARIN SODIUM,PORCINE 5,000 UNIT/ML 1 ML VIAL SQ SCH ×2 (09:13→20:29)
[2020-02-20] MEDS: METOPROLOL TARTRATE 25 MG TAB PO SCH ×2 (09:13→20:28)
[2020-02-20] MEDS: ASPIRIN 81 MG PO SCH (09:13)
[2020-02-20] MEDS: ISOSORBIDE MONONITRATE ER 30 MG TAB.ER.24H PO SCH (09:13)
[2020-02-20] MEDS: FAMOTIDINE 20 MG TAB PO SCH (09:13)
[2020-02-20 09:34] LABS: African American GFR (CKD) 107.9 (60.0-200.0); Non-African American GFR(CKD) 93.1 (60.0-200.0)
--- NOTE | 2020-02-20 10:16 | P.PN ---
Subjective Progress Note Date: 02/20/20 Principal diagnosis: Severe dyspnea and shortness of breath, right-sided pneumonia, cavitation in the right lower lobe, possible malignancy of lung cancer 64-year-old mildly overweight male one of Dr. Levin patient with past medical history of coronary artery disease, diabetes, hypertension, COPD and mild PAD who is a former smoker pack-a-day for over 40 years had a quit 4 years ago who has not been hospitalized in a while apparently developed to have significant and worsening shortness of breath for the last 3 weeks become much worse last few days patient developed to have hemoptysis with productive cough along with significant shortness of breath with minimum exertion symptoms become much worse associated with fever and chills. Patient has not been hospitalized recently or exposed to any infectious process including Covid 19 or tuberculosis. He presented to the emergency department with above symptoms was seen and evaluated surprisingly his white blood cell was normal blood sugar was mildly elevated chest x-ray showed infection with pneumonia on the right lower lobe, CT of the chest showed large cavitation of 7.4 cm of the right lower lobe surrounded with groundglass an infectious etiology is favored over cavitary neoplasm finding might be consistent with atypical fungal or mycobacterial infection also had right hilar and subcarinal lymphadenopathy measuring up to 4.3 cm probably reactive cannot exclude the possibility of metastasis, 6 mm left upper lobe pulmonary nodular, 2.3 cm right adrenal nodular. Patient was started on Unasyn along with vancomycin updraft treatment was start steroid as well consult pulmonary and prepare for possible bronchoscopy and further management might require bronchoscopy and biopsy for further diagnosis. 02/18: The patient is in TB isolation. We will add in Covid and influenza testing. Patient is followed by Dr. Rowe and patient may require bronchoscopy early next week. Sputum culture was sent this morning. Patient continues to have cough with sputum and hemoptysis. Breathing status is stable and improved from yesterday. He has been afebrile, heart rate 81, blood pressure 131/74, pulse ox 93% on room air. Patient is currently on Unasyn and vancomycin. Repeat chest x-ray reveals right lower lobe infiltrate and stable. 02/19: Patient is feeling much better today with the current IV antibiotic bronchoscopy was delayed until early next week patient is not coughing any blood today and his shortness of breath has improved. Objective - Vital Signs Vital signs: Vital Signs Temp 98.7 F 02/20/20 05:00 Pulse 77 02/20/20 05:00 Resp 18 02/20/20 05:00 BP 133/67 02/20/20 05:00 Pulse Ox 93 L 02/20/20 05:00 Intake & Output 02/19/20 02/20/20 02/20/20 18:59 06:59 18:59 Intake Total 2935 Balance 2935 Intake: Intake, IV Titration 1855 Amount Ampicillin-Sulbactam 3 gm 200 In Sodium Chloride 0.9% 100 ml @ 200 mls/hr IVPB Q8HR [facility] Rx#:[id number] Sodium Chloride 0.9% 1, 1150 000 ml @ 100 mls/hr IV . Q10H [facility] Rx#:[id number] Vancomycin 1,750 mg In 505 Sodium Chloride 0.9% 500 ml 500 ml @ 167 mls/hr IVPB Q12H [facility] Rx#: [id number] Oral 1080 Other: Voiding Method Toilet Toilet # Voids 3 3 - Exam REVIEW OF SYSTEMS CONSTITUTIONAL: Well-developed no acute respiratory distress. Mildly overwei ght. No fevers. EYES: No icterus sclerae, no conjunctivitis. EARS, NOSE, MOUTH, THROAT, and FACE: No sore throat, lymphadenopathy, carotid bruits or deformity. RESPIRATORY: Positive shortness of breath cough and wheezes with cavitary infection in the right lower lobe.. CARDIOVASCULAR: Positive PND orthopnea palpitations. GASTROINTESTINAL: No Abd pain, Nausea or vomiting, no Diarrhea or constipation, No GI Bleed, no distention or masses. GENITOURINARY: Negative for Hematuria or UTI, no kidney stones. INTEGUMENT/BREAST: Negative for any muscular injury with mild osteoarthritis.. HEMATOLOGIC/LYMPHATIC: Negative for bleed or purpura. MUSCULOSKELTAL: Negative for Myalgia or arthralgia. NEURLOGICAL: No LOC, Sz or syncope, blurred vision dizziness or abnormality.. BEHAVIORAL/PSYCH: Negative. ENDOCRINE: Negative. PHYSICAL EXAMINATION General Appearance: Alert, cooperative, no distress, appears stated age. Patient is in no acute distress. Neck HEENT: Supple, no lymphadenopathy, no thyroid enlargement, no carotid bruits. Lungs: Decreased breath sound bilaterally with fine rhonchi positive crackles in the bases with mild expiratory wheezes. Chest Wall: Chest wall normal expansion with deep inspiration no tenderness and no deformity was found on exam, no costochondral pain or discomfort. Heart: Regular rate and rhythm, S1, S2 normal, no murmur, rub or gallop. Back: Symmetric, no curvature, ROM normal, no CVA tenderness. Abdomen: Soft, non-tender, bowel sounds active all four quadrants, no masses, no organomegaly. Extremities: Extremities normal, atraumatic, no cyanosis or edema. Pulses: 2+ and symmetric. Skin: Skin color, texture, tugor normal, no rashes or lesions. Neurologic: Alert oriented x3 cranial nerves II through XII intact, no motor deficit, no abnormal balance or gait. - Labs CBC & Chem 7: 02/18/20 12:18 02/20/20 06:32 Labs: Abnormal Lab Results - Last 24 Hours (Table) 02/19/20 02/19/20 02/19/20 Range/Units 05:53 12:01 17:06 POC Glucose (mg/dL) 248 H 185 H (75-99) mg/dL C-Reactive Protein 23.5 H (<10.0) mg/L 02/19/20 02/20/20 02/20/20 Range/Units 21:25 05:18 07:18 POC Glucose (mg/dL) 185 H 184 H 217 H (75-99) mg/dL C-Reactive Protein (<10.0) mg/L Microbiology - Last 24 Hours (Table) 02/20/20 Unknown Sputum Culture - Preliminary Sputum 02/18/20 16:08 Blood Culture - Preliminary Blood No Growth after 24 hours 02/19/20 08:45 Acid Fast Bacilli Smear - Final Sputum Acid Fast Bacilli Culture - Preliminary 02/19/20 08:45 Gram Stain - Preliminary Sputum Sputum Culture - Preliminary 02/19/20 08:45 Fungal Culture - Preliminary Sputum Assessment and Plan Assessment: 1 severe dyspnea and shortness of breath: Patient be admitted to the hospital, continue Unasyn along with vancomycin, consult pulmonary start steroids along with updraft treatment and Pulmicort try to come with tissue diagnosis and culture if possible. 2 large cavitary in the right lower lobe with the possibility of infection v ersus malignancy, further management including biopsy might be highly recommended. Bronchoscopy might be planned for Saturday 3 possible lung metastasis in the mitchell-cranial area: Again could be lung cancer with metastasis which peaked stage III lung cancer. Again till biopsies done and confirmed patient to be continued on IV antibiotics for now. 4 CAD: Patient seen cardiology regular basis continue medical management. 5 type 2 diabetes: Remain on oral hypoglycemic agent continue Accu-Chek with sliding scales coverage for now diet controlled. 6 hyperlipidemia: Remain on atorvastatin 40 mg daily. 7 hypertension: Continue metoprolol titrate 25 mg twice a day. 8 electrolyte imbalance: Remain on with hydration found mild hyperkalemia. 9 DVT prophylaxis: Patient be on heparin subcutaneous. Patient is feeling slightly better compared to yesterday continue IV antibiotics no hemoptysis patient is still in isolation repeat chest x-ray and patient probably be going for bronchoscopy on Saturday.
[2020-02-20 11:17] LABS: Glucose,Whole Blood 233 mg/dL (75-99)
--- NOTE | 2020-02-20 12:05 | P.PN ---
Subjective Progress Note Date: 02/20/20 Principal diagnosis: Hemoptysis of unclear etiology This is a very pleasant 64-year-old gentleman who follows with Dr. Raygoza as his primary care provider. He has history of diabetes mellitus, hypertension, hyperlipidemia, obesity a former smoker, occasional marijuana use. He presented to the emergency room yesterday after developing worsening hemoptysis. He states he has been coughing up blood for approximately 3 weeks now. He states he has been very active and no other symptoms. He's been hunting, out on his ATV and doing physical work. No fever, chills or night sweats. No nausea, vomiting or diarrhea. Denies any weight loss. Denies any recent travel. Den ies any recent pneumonias. He has been coughing up blood on nearly a daily basis. Computed tomography scan of the chest reveals a large cavitary lesion measuring 7.4 cm in the right lower lobe with a wall with intermediate thickness and extensive surrounding groundglass density. Suspicious for atypical fungal or mycobacterial infections. There is a second adjacent smaller area of 1.9 cm just below with the associated groundglass favoring infectious over neoplasm. There is a right hilar and subcarinal lymphadenopathy measuring up to 4.3 cm suspect reactive. Cannot exclude metastatic disease. There is a 6 mm left upper lobe nodule. A 2.3 cm right adrenal nodule, benign adrenal adenoma is suspected. He is seen today in consultation on the regular medical floor. He is in TB isolation precautions. He is awake and alert in no acute distress. He denies any shortness of breath. Continues to cough up bloody sputum. Sample of which will be sent to the lab. Continues to deny any other symptoms. He remains afebrile. Hemodynamically stable. Maintain O2 saturations in the 90s on room air. White count 8.7. Hemoglobin 15.0. Sodium 136. Potassium 5.2. Creatinine 0.76. Influenza screen negative. CoVID 19 screen pending. Currently on vancomycin and Unasyn. The patient is seen today 02/20/2020 in follow-up on the regular medical floor. He remains awake and alert in no acute distress. Maintaining good O2 saturations in the low 90s on room air. He's afebrile. Hemodynamically stable. Still a small amounts of hemoptysis. AFB smear is negative. Sputum cultures pending. Covid 19 screen pending. He remains on bronchodilators, Unasyn, vancomycin. Objective - Vital Signs Vital signs: Vital Signs Temp 97.7 F 02/20/20 11:46 Pulse 62 02/20/20 11:46 Resp 15 02/20/20 11:46 BP 107/70 02/20/20 11:46 Pulse Ox 92 L 02/20/20 11:46 Intake & Output 02/19/20 02/20/20 02/20/20 18:59 06:59 18:59 Intake Total 2935 Balance 2935 Intake: Intake, IV Titration 1855 Amount Ampicillin-Sulbactam 3 gm 200 In Sodium Chloride 0.9% 100 ml @ 200 mls/hr IVPB Q8HR DIA Rx#:[id number] Sodium Chloride 0.9% 1, 1150 000 ml @ 100 mls/hr IV . Q10H DIA Rx#:[id number] Vancomycin 1,750 mg In 505 Sodium Chloride 0.9% 500 ml 500 ml @ 167 mls/hr IVPB Q12H DIA Rx#: [id number] Oral 1080 Other: Voiding Method Toilet Toilet # Voids 3 3 - Exam GENERAL EXAM: Alert, pleasant 64-year-old gentleman, on room air, comfortable in no apparent distress. HEAD: Normocephalic. EYES: Normal reaction of pupils, equal size. NOSE: Clear with pink turbinates. THROAT: No erythema or exudates. NECK: No masses, no JVD. CHEST: No chest wall deformity. LUNGS: Equal air entry with scattered rhonchi, crackles in the right posterior base. CVS: S1 and S2 normal with no audible murmur, regular rhythm. ABDOMEN: No hepatosplenomegaly, normal bowel sounds, no guarding or rigidity. SPINE: No scoliosis or deformity SKIN: No rashes CENTRAL NERVOUS SYSTEM: No focal deficits, tone is normal in all 4 extremities. EXTREMITIES: There is no peripheral edema. No clubbing, no cyanosis. Peripheral pulses are intact. - Labs CBC & Chem 7: 02/18/20 12:18 02/20/20 06:32 Labs: Abnormal Lab Results - Last 24 Hours (Table) 02/19/20 02/19/20 02/19/20 Range/Units 05:53 12:01 17:06 POC Glucose (mg/dL) 248 H 185 H (75-99) mg/dL C-Reactive Protein 23.5 H (<10.0) mg/L 02/19/20 02/20/20 02/20/20 Range/Units 21:25 05:18 07:18 POC Glucose (mg/dL) 185 H 184 H 217 H (75-99) mg/dL C-Reactive Protein (<10.0) mg/L 02/20/20 Range/Units 11:15 POC Glucose (mg/dL) 233 H (75-99) mg/dL C-Reactive Protein (<10.0) mg/L Microbiology - Last 24 Hours (Table) 02/20/20 Unknown Sputum Culture - Preliminary Sputum 02/18/20 16:08 Blood Culture - Preliminary Blood No Growth after 24 hours 02/19/20 08:45 Acid Fast Bacilli Smear - Final Sputum Acid Fast Bacilli Culture - Preliminary 02/19/20 08:45 Gram Stain - Preliminary Sputum Sputum Culture - Preliminary 02/19/20 08:45 Fungal Culture - Preliminary Sputum Assessment and Plan Assessment: 1 Hemoptysis secondary to large cavitary lesion measuring 7.4 cm in the right lower lobe with a wall with an term immediate thickness and extensive surrounding groundglass density. Suspect atypical fungal or mycobacterial infection. There is a second adjacent smaller area of 1.9 cm cavitation just below the associated groundglass with infectious etiology favored over cavitary neoplasm. AFBs are negative. Cultures pending. Remains on Unasyn and vancomycin 2 Right hilar and subcarinal lymphadenopathy measuring up to 4.3 cm. Suspect reactive. Cannot completely exclude metastatic disease. Incidental 6 mm left upper lobe pulmonary nodule. 3 2.3 cm right adrenal nodule suspect benign adrenal adenoma versus metastasis. 4 History of significant 40 year smoking history however quit 4 years ago. Occasional marijuana use. 5 Obesity 6 Coronary artery disease 7 Hyperlipidemia 8 Diabetes mellitus 9 Hypertension Plan: The patient was seen and evaluated by Dr. Chavez Sputum culture pending Covid screen pending If no significant findings we'll plan for bronchoscopy with BAL of the right lower lobe Continue vancomycin and Unasyn for now Continue isolation precautions ID is on the case We'll continue to follow and make further recommendations based on his clinical status I, the cosigning physician, performed a history & physical examination of the patient. Lungs sounds with rhonchi, crackles in the right posterior base. Maintaining good O2 saturations in the 90s on room air. I discussed the assessment and plan of care with my nurse practitioner, Shirlene Meza. I attest to the above note as dictated by her.
--- NOTE | 2020-02-20 18:49 | PN ---
PROGRESS NOTE DATE OF SERVICE: 02/20/2020 REASON FOR FOLLOW UP: Hemoptysis and cavitary lesion and question of pneumonia. INTERVAL HISTORY: Patient is currently afebrile. The patient is breathing comfortably. He is still having hemoptysis. No significant change. No chest pain. No vomiting. No abdominal pain. No diarrhea. PHYSICAL EXAMINATION: Blood pressure 137/70 with a pulse of 62, temperature 97.7, and he is 92% on room air. General description: The patient is an elderly male up in the chair in no distress. Respiratory system: Unlabored breathing with decreased breath sounds in the base, with no wheeze. Heart S1, S2. Regular rate and rhythm. ABDOMEN: Soft, no tenderness. LABS: Sputum AFB one smear negative. CRP so far normal. DIAGNOSTIC IMPRESSION AND PLAN: Patient with hemoptysis with cavitary lesion, high clinical suspicious for possible malignancy. Underlying infection less likely. We are waiting for the sputum AFB and cultures to finalize. Continue with Unasyn and vancomycin. Possible bronchoscopy on Saturday. Continue supportive care. MMODL / IJN: [id number] /
[2020-02-20 20:10] LABS: Glucose,Whole Blood 224 mg/dL (75-99)
[2020-02-20] MEDS: ATORVASTATIN 40 MG TAB PO SCH (20:29)
[2020-02-21] MEDS ORDERED: VANCOMYCIN TROUGH DUE 1 EACH MISC MISCELLANE ONE (05:00)
[2020-02-21] MEDS: VANCOMYCIN 1,750 MG in SODIUM CHLORIDE 0.9% 500 ML 500 ML IVPB SCH (06:19)
[2020-02-21 07:04] LABS: Glucose,Whole Blood 214 mg/dL (75-99)
--- NOTE | 2020-02-21 07:32 | XR ---
EXAMINATION TYPE: XR chest 1V portable DATE OF EXAM: 02/21/2020 HISTORY: Shortness of breath. COMPARISON: 02/19/2020 TECHNIQUE: Single view of the chest is submitted. FINDINGS: Demonstrated are scattered senescent parenchymal change. Stable right lower lobe infiltrate. Progress studies are recommended. The heart is stable. Hilar and mediastinal structures are within normal limits. Degenerative changes are seen of the dorsal spine. IMPRESSION: 1. Stable right lower lobe infiltrate. Progress studies are recommended.
[2020-02-21] MEDS: ALBUTEROL HFA INHALER INHALATION SCH ×4 (08:07→20:58)
[2020-02-21] MEDS: ASPIRIN 81 MG PO SCH (08:56)
[2020-02-21] MEDS: HEPARIN SODIUM,PORCINE 5,000 UNIT/ML 1 ML VIAL SQ SCH ×2 (08:56→20:19)
[2020-02-21] MEDS: METOPROLOL TARTRATE 25 MG TAB PO SCH ×2 (08:56→20:19)
[2020-02-21] MEDS: ISOSORBIDE MONONITRATE ER 30 MG TAB.ER.24H PO SCH (08:56)
[2020-02-21] MEDS: AMPICILLIN-SULBACTAM 3 GM in SODIUM CHLORIDE 0.9% 100 ML IVPB SCH ×3 (08:56→23:50)
[2020-02-21] MEDS: FAMOTIDINE 20 MG TAB PO SCH (08:56)
[2020-02-21 09:14] LABS: African American GFR (CKD) 107.9 (60.0-200.0); Non-African American GFR(CKD) 93.1 (60.0-200.0)
[2020-02-21 11:36] LABS: Glucose,Whole Blood 210 mg/dL (75-99)
[2020-02-21 11:54] LABS: Basophils # (A) 0.1 k/uL (0-0.2); Basophils % (A) 1 %; Eosinophils # (A) 0.6 k/uL (0-0.7); Eosinophils % (A) 7 %; HCT 43.9 % (39.0-53.0); HGB 13.6 gm/dL (13.0-17.5); Hypochromasia Slight; Lymphocytes # (A) 2.1 k/uL (1.0-4.8); Lymphocytes % (A) 25 %; MCH 30.2 pg (25.0-35.0); MCHC 30.9 g/dL (31.0-37.0); MCV 97.6 fL (80.0-100.0); Mean Platelet Volume 8.7; Monocytes # (A) 0.6 k/uL (0-1.0); Monocytes % (A) 7 %; Neutrophils # (A) 4.8 k/uL (1.3-7.7); Neutrophils % (A) 58 %; Platelet Count 273 k/uL (150-450); RBC 4.49 m/uL (4.30-5.90); RDW 13.9 % (11.5-15.5); WBC 8.2 k/uL (3.8-10.6)
--- NOTE | 2020-02-21 12:33 | P.PN ---
Subjective Progress Note Date: 02/21/20 Principal diagnosis: Severe dyspnea and shortness of breath, right-sided pneumonia, cavitation in the right lower lobe, possible malignancy of lung cancer, surprisingly with culture consistent with normal bernadette and candidiasis. 64-year-old mildly overweight male one of Dr. Levin patient with past medical history of coronary artery disease, diabetes, hypertension, COPD and mild PAD who is a former smoker pack-a-day for over 40 years had a quit 4 years ago who has not been hospitalized in a while apparently developed to have significant and worsening shortness of breath for the last 3 weeks become much worse last few days patient developed to have hemoptysis with productive cough along with significant shortness of breath with minimum exertion symptoms become much worse associated with fever and chills. Patient has not been hospitalized recently or exposed to any infectious process including Covid 19 or tuberculosis. He presented to the emergency department with above symptoms was seen and evaluated surprisingly his white blood cell was normal blood sugar was mildly elevated chest x-ray showed infection with pneumonia on the right lower lobe, CT of the chest showed large cavitation of 7.4 cm of the right lower lobe surrounded with groundglass an infectious etiology is favored over cavitary neoplasm finding might be consistent with atypical fungal or mycobacterial infection also had right hilar and subcarinal lymphadenopathy measuring up to 4.3 cm probably reactive cannot exclude the possibility of metastasis, 6 mm left upper lobe pulmonary nodular, 2.3 cm right adrenal nodular. Patient was started on Unasyn along with vancomycin updraft treatment was start steroid as well consult pulmonary and prepare for possible bronchoscopy and further management might require bronchoscopy and biopsy for further diagnosis. 02/18: The patient is in TB isolation. We will add in Covid and influenza testing. Patient is followed by Dr. Rowe and patient may require bronchoscopy early next week. Sputum culture was sent this morning. Patient continues to have cough with sputum and hemoptysis. Breathing status is stable and improved from yesterday. He has been afebrile, heart rate 81, blood pressure 131/74, pulse ox 93% on room air. Patient is currently on Unasyn and vancomycin. Repeat chest x-ray reveals right lower lobe infiltrate and stable. 02/19: Patient is feeling much better today with the current IV antibiotic bronchoscopy was delayed until early next week patient is not coughing any blood today and his shortness of breath has improved. 02/20: Sputum culture came back with normal bernadette along with candidiasis, no sign of TB so far the patient still on isolation to is clear by pulmonary. Also patient will be hopefully going for bronchoscopy on Saturday Objective - Vital Signs Vital signs: Vital Signs Temp 97.9 F 02/21/20 12:00 Pulse 75 02/21/20 12:00 Resp 20 02/21/20 12:00 BP 132/81 02/21/20 12:00 Pulse Ox 93 L 02/21/20 12:00 Intake & Output 02/20/20 02/21/20 02/21/20 18:59 06:59 18:59 Intake Total 900 2420 Balance 900 2420 Intake: Intake, IV Titration 900 1400 Amount Ampicillin-Sulbactam 3 gm 100 100 In Sodium Chloride 0.9% 100 ml @ 200 mls/hr IVPB Q8HR DIA Rx#:[id number] Sodium Chloride 0.9% 1, 800 800 000 ml @ 100 mls/hr IV . Q10H DIA Rx#:[id number] Vancomycin 1,750 mg In 500 Sodium Chloride 0.9% 500 ml 500 ml @ 167 mls/hr IVPB Q12H DIA Rx#: [id number] Oral 1020 Other: Voiding Method Toilet Toilet Toilet # Voids 2 - Exam REVIEW OF SYSTEMS CONSTITUTIONAL: Well-developed no acute respiratory distress. Mildly overweight. No fevers. EYES: No icterus sclerae, no conjunctivitis. EARS, NOSE, MOUTH, THROAT, and FACE: No sore throat, lymphadenopathy, carotid bruits or deformity. RESPIRATORY: Positive shortness of breath cough and wheezes with cavitary infection in the right lower lobe.. CARDIOVASCULAR: Positive PND orthopnea palpitations. GASTROINTESTINAL: No Abd pain, Nausea or vomiting, no Diarrhea or constipation, No GI Bleed, no distention or masses. GENITOURINARY: Negative for Hematuria or UTI, no kidney stones. INTEGUMENT/BREAST: Negative for any muscular injury with mild osteoarthritis.. HEMATOLOGIC/LYMPHATIC: Negative for bleed or purpura. MUSCULOSKELTAL: Negative for Myalgia or arthralgia. NEURLOGICAL: No LOC, Sz or syncope, blurred vision dizziness or abnormality.. BEHAVIORAL/PSYCH: Negative. ENDOCRINE: Negative. PHYSICAL EXAMINATION General Appearance: Alert, cooperative, no distress, appears stated age. Patient is in no acute distress. Neck HEENT: Supple, no lymphadenopathy, no thyroid enlargement, no carotid bruits. Lungs: Decreased breath sound bilaterally with fine rhonchi positive crackles in the bases with mild expiratory wheezes. Chest Wall: Chest wall normal expansion with deep inspiration no tenderness and no deformity was found on exam, no costochondral pain or discomfort. Heart: Regular rate and rhythm, S1, S2 normal, no murmur, rub or gallop. Back: Symmetric, no curvature, ROM normal, no CVA tenderness. Abdomen: Soft, non-tender, bowel sounds active all four quadrants, no masses, no organomegaly. Extremities: Extremities normal, atraumatic, no cyanosis or edema. Pulses: 2+ and symmetric. Skin: Skin color, texture, tugor normal, no rashes or lesions. Neurologic: Alert oriented x3 cranial nerves II through XII intact, no motor deficit, no abnormal balance or gait. - Labs CBC & Chem 7: 02/21/20 06:16 02/21/20 06:16 Labs: Abnormal Lab Results - Last 24 Hours (Table) 02/20/20 02/21/20 02/21/20 Range/Units 20:09 06:16 07:04 MCHC 30.9 L (31.0-37.0) g/dL POC Glucose (mg/dL) 224 H 214 H (75-99) mg/dL 02/21/20 Range/Units 11:33 MCHC (31.0-37.0) g/dL POC Glucose (mg/dL) 210 H (75-99) mg/dL Microbiology - Last 24 Hours (Table) 02/20/20 Unknown Gram Stain - Final Sputum Sputum Culture - Final Etta sp,not albicans/galbr 02/19/20 08:45 Gram Stain - Final Sputum Sputum Culture - Final Etta sp,not albicans/galbr 02/18/20 16:08 Blood Culture - Preliminary Blood No Growth after 48 hours Assessment and Plan Assessment: 1 severe dyspnea and shortness of breath: Patient be admitted to the hospital, continue Unasyn along with vancomycin, consult pulmonary start steroids along with updraft treatment and Pulmicort try to come with tissue diagnosis and culture if possible. 2 large cavitary in the right lower lobe with the possibility of infection versus malignancy, further management including biopsy might be highly recommended. Bronchoscopy might be planned for Saturday, one of the culture comes back positive candidiasis Will add Diflucan to medication. 3 possible lung metastasis in the mitchell-cranial area: Again could be lung cancer with metastasis which peaked stage III lung cancer. Again till biopsies done and confirmed patient to be continued on IV antibiotics for now. 4 CAD: Patient seen cardiology regular basis continue medical management. 5 type 2 diabetes: Remain on oral hypoglycemic agent continue Accu-Chek with sliding scales coverage for now diet controlled. 6 hyperlipidemia: Remain on atorvastatin 40 mg daily. 7 hypertension: Continue metoprolol titrate 25 mg twice a day. 8 electrolyte imbalance: Remain on with hydration found mild hyperkalemia. 9 DVT prophylaxis: Patient be on heparin subcutaneous. Patient is feeling slightly better compared to yesterday continue IV antibiotics no hemoptysis patient is still in isolation repeat chest x-ray and patient probably be going for bronchoscopy on Saturday.
--- NOTE | 2020-02-21 12:57 | P.PN ---
Subjective Progress Note Date: 02/21/20 Principal diagnosis: Hemoptysis of unclear etiology This is a very pleasant 64-year-old gentleman who follows with Dr. Raygoza as his primary care provider. He has history of diabetes mellitus, hypertension, hyperlipidemia, obesity a former smoker, occasional marijuana use. He presented to the emergency room yesterday after developing worsening hemoptysis. He states he has been coughing up blood for approximately 3 weeks now. He states he has been very active and no other symptoms. He's been hunting, out on his ATV and doing physical work. No fever, chills or night sweats. No nausea, vomiting or diarrhea. Denies any weight loss. Denies any recent travel. Den ies any recent pneumonias. He has been coughing up blood on nearly a daily basis. Computed tomography scan of the chest reveals a large cavitary lesion measuring 7.4 cm in the right lower lobe with a wall with intermediate thickness and extensive surrounding groundglass density. Suspicious for atypical fungal or mycobacterial infections. There is a second adjacent smaller area of 1.9 cm just below with the associated groundglass favoring infectious over neoplasm. There is a right hilar and subcarinal lymphadenopathy measuring up to 4.3 cm suspect reactive. Cannot exclude metastatic disease. There is a 6 mm left upper lobe nodule. A 2.3 cm right adrenal nodule, benign adrenal adenoma is suspected. He is seen today in consultation on the regular medical floor. He is in TB isolation precautions. He is awake and alert in no acute distress. He denies any shortness of breath. Continues to cough up bloody sputum. Sample of which will be sent to the lab. Continues to deny any other symptoms. He remains afebrile. Hemodynamically stable. Maintain O2 saturations in the 90s on room air. White count 8.7. Hemoglobin 15.0. Sodium 136. Potassium 5.2. Creatinine 0.76. Influenza screen negative. CoVID 19 screen pending. Currently on vancomycin and Unasyn. The patient is seen today 02/20/2020 in follow-up on the regular medical floor. He remains awake and alert in no acute distress. Maintaining good O2 saturations in the low 90s on room air. He's afebrile. Hemodynamically stable. Still a small amounts of hemoptysis. AFB smear is negative. Sputum cultures pending. Covid 19 screen pending. He remains on bronchodilators, Unasyn, vancomycin. The patient is seen today 02/21/2020 in follow-up on the regular medical floor. He is up ambulating in his room. Awake and alert in no acute distress. He is afebrile. Maintaining O2 saturations in the 90s on room air. Hemodynamically stable. He does continue with hemoptysis. Sputum cultures are revealing Cand osiel. White count 8.2. Hemoglobin 13.6. Creatinine 0.8. He remains on Unasyn, vancomycin, bronchodilators. Covid screen pending. Objective - Vital Signs Vital signs: Vital Signs Temp 97.9 F 02/21/20 12:00 Pulse 75 02/21/20 12:00 Resp 20 02/21/20 12:00 BP 132/81 02/21/20 12:00 Pulse Ox 93 L 02/21/20 12:00 Intake & Output 02/20/20 02/21/20 02/21/20 18:59 06:59 18:59 Intake Total 900 2420 Balance 900 2420 Intake: Intake, IV Titration 900 1400 Amount Ampicillin-Sulbactam 3 gm 100 100 In Sodium Chloride 0.9% 100 ml @ 200 mls/hr IVPB Q8HR DIA Rx#:[id number] Sodium Chloride 0.9% 1, 800 800 000 ml @ 100 mls/hr IV . Q10H DIA Rx#:[id number] Vancomycin 1,750 mg In 500 Sodium Chloride 0.9% 500 ml 500 ml @ 167 mls/hr IVPB Q12H DIA Rx#: [id number] Oral 1020 Other: Voiding Method Toilet Toilet Toilet # Voids 2 - Exam GENERAL EXAM: Alert, pleasant 64-year-old gentleman, on room air, comfortable in no apparent distress. HEAD: Normocephalic. EYES: Normal reaction of pupils, equal size. NOSE: Clear with pink turbinates. THROAT: No erythema or exudates. NECK: No masses, no JVD. CHEST: No chest wall deformity. LUNGS: Equal air entry with scattered rhonchi, crackles in the right posterior base. CVS: S1 and S2 normal with no audible murmur, regular rhythm. ABDOMEN: No hepatosplenomegaly, normal bowel sounds, no guarding or rigidity. SPINE: No scoliosis or deformity SKIN: No rashes CENTRAL NERVOUS SYSTEM: No focal deficits, tone is normal in all 4 extremities. EXTREMITIES: There is no peripheral edema. No clubbing, no cyanosis. Peripheral pulses are intact. - Labs CBC & Chem 7: 02/21/20 06:16 02/21/20 06:16 Labs: Abnormal Lab Results - Last 24 Hours (Table) 02/20/20 02/21/20 02/21/20 Range/Units 20:09 06:16 07:04 MCHC 30.9 L (31.0-37.0) g/dL POC Glucose (mg/dL) 224 H 214 H (75-99) mg/dL 02/21/20 Range/Units 11:33 MCHC (31.0-37.0) g/dL POC Glucose (mg/dL) 210 H (75-99) mg/dL Microbiology - Last 24 Hours (Table) 02/20/20 Unknown Gram Stain - Final Sputum Sputum Culture - Final Etta sp,not albicans/galbr 02/19/20 08:45 Gram Stain - Final Sputum Sputum Culture - Final Etta sp,not albicans/galbr 02/18/20 16:08 Blood Culture - Preliminary Blood No Growth after 48 hours Assessment and Plan Assessment: 1 Hemoptysis secondary to large cavitary lesion measuring 7.4 cm in the right lower lobe with a wall with an term immediate thickness and extensive surrounding groundglass density. Suspect atypical fungal or mycobacterial infection. There is a second adjacent smaller area of 1.9 cm cavitation just below the associated groundglass with infectious etiology favored over cavitary neoplasm. AFBs are negative. Cultures pending. Remains on Unasyn and vancomycin 2 Right hilar and subcarinal lymphadenopathy measuring up to 4.3 cm. Suspect reactive. Cannot completely exclude metastatic disease. Incidental 6 mm left upper lobe pulmonary nodule. 3 2.3 cm right adrenal nodule suspect benign adrenal adenoma versus metastasis. 4 History of significant 40 year smoking history however quit 4 years ago. Occasional marijuana use. 5 Obesity 6 Coronary artery disease 7 Hyperlipidemia 8 Diabetes mellitus 9 Hypertension Plan: The patient was seen and evaluated by Dr. Chavez Continues with hemoptysis Sputum culture revealing Etta only thus far CoVID 19 screen pending We'll plan for bronchoscopy with BAL of the right lower lobe Saturday or Saturday Nothing by mouth tonight Continue vancomycin and Unasyn for now Continue isolation precautions ID is on the case We'll continue to follow and make further recommendations based on his clinical status I, the cosigning physician, performed a history & physical examination of the patient. Lungs sounds with rhonchi, crackles in the right posterior base. Maintaining good O2 saturations in the 90s on room air. I discussed the assessment and plan of care with my nurse practitioner, Shirlene Meza. I attest to the above note as dictated by her.
[2020-02-21] MEDS: FLUCONAZOLE IN NACL,ISO-OSM 200 MG in SALINE 1 100ML.BAG IVPB SCH (15:07)
[2020-02-21] MEDS: SODIUM CHLORIDE 0.9% 1,000 ML IV SCH ×2 (16:10→17:53)
[2020-02-21 17:15] LABS: Glucose,Whole Blood 159 mg/dL (75-99)
[2020-02-21] MEDS ORDERED: VANCOMYCIN 2,000 MG in SODIUM CHLORIDE 0.9% 500 ML 500 ML IVPB SCH (18:00)
[2020-02-21] MEDS: ATORVASTATIN 40 MG TAB PO SCH (20:19)
[2020-02-21 21:10] LABS: Glucose,Whole Blood 172 mg/dL (75-99)
--- NOTE | 2020-02-22 06:27 | PN ---
PROGRESS NOTE DATE OF SERVICE: 02/21/2020 REASON FOR FOLLOWUP: Cavitary lung lesion, question of malignancy versus pneumonia. INTERVAL HISTORY: The patient is currently afebrile, has been breathing comfortably. The patient denies having any chest pain. Did have a cough and bringing up some sputum with hemoptysis, no worsening. No nausea, no vomiting. No abdominal pain, no diarrhea. PHYSICAL EXAMINATION: Blood pressure 132/81 with a pulse of 75, temperature 97.9. He is 93% on room air. General description is an elderly male up in the bed in no distress. RESPIRATORY SYSTEM: Unlabored breathing, decreased breath sounds at the bases. No wheeze. HEART: S1, S2. Regular rate and rhythm. ABDOMEN: Soft, no tenderness. LABS: Hemoglobin 13.6, white count 8.2. Vancomycin trough is 12.9. Sputum is showing a Etta species. DIAGNOSTIC IMPRESSION AND PLAN: Patient with cavitary pneumonia concern for possible malignancy. Sputum has been negative for MRSA. Continue with Unasyn. Discontinue vancomycin. Possible bronchoscopy. MMODL / IJN: [id number] /
[2020-02-22 07:18] LABS: Glucose,Whole Blood 166 mg/dL (75-99)
[2020-02-22] MEDS: SODIUM CHLORIDE 0.9% 1,000 ML IV SCH ×2 (08:21→21:08)
[2020-02-22] MEDS: AMPICILLIN-SULBACTAM 3 GM in SODIUM CHLORIDE 0.9% 100 ML IVPB SCH ×2 (08:21→15:27)
[2020-02-22] MEDS: FAMOTIDINE 20 MG TAB PO SCH (08:21)
[2020-02-22] MEDS: ISOSORBIDE MONONITRATE ER 30 MG TAB.ER.24H PO SCH (08:21)
[2020-02-22] MEDS: METOPROLOL TARTRATE 25 MG TAB PO SCH ×2 (08:21→21:07)
[2020-02-22] MEDS: ALBUTEROL HFA INHALER INHALATION SCH ×4 (08:28→20:15)
[2020-02-22] MEDS: HEPARIN SODIUM,PORCINE 5,000 UNIT/ML 1 ML VIAL SQ SCH ×2 (08:33→21:03)
[2020-02-22] MEDS: ASPIRIN 81 MG PO SCH (08:33)
[2020-02-22] MEDS: FLUCONAZOLE IN NACL,ISO-OSM 200 MG in SALINE 1 100ML.BAG IVPB SCH (10:13)
--- NOTE | 2020-02-22 11:37 | P.PN ---
Subjective Progress Note Date: 02/22/20 HISTORY OF PRESENT ILLNESS 64-year-old mildly overweight male one of Dr. Lvein patient with past medical history of coronary artery disease, diabetes, hypertension, COPD and m ild PAD who is a former smoker pack-a-day for over 40 years had a quit 4 years ago who has not been hospitalized in a while apparently developed to have significant and worsening shortness of breath for the last 3 weeks become much worse last few days patient developed to have hemoptysis with productive cough along with significant shortness of breath with minimum exertion symptoms become much worse associated with fever and chills. Patient has not been hospitalized recently or exposed to any infectious process including Covid 19 or tuberculosis. He presented to the emergency department with above symptoms was seen and evaluated surprisingly his white blood cell was normal blood sugar was mildly elevated chest x-ray showed infection with pneumonia on the right lower lobe, CT of the chest showed large cavitation of 7.4 cm of the right lower lobe surrounded with groundglass an infectious etiology is favored over cavitary neoplasm finding might be consistent with atypical fungal or mycobacterial infection also had right hilar and subcarinal lymphadenopathy measuring up to 4.3 cm probably reactive cannot exclude the possibility of metastasis, 6 mm left upper lobe pulmonary nodular, 2.3 cm right adrenal nodular. Patient was started on Unasyn along with vancomycin updraft treatment was start steroid as well consult pulmonary and prepare for possible bronchoscopy and further management might require bronchoscopy and biopsy for further diagnosis. 02/18: The patient is in TB isolation. We will add in Covid and influenza testing. Patient is followed by Dr. Rowe and patient may require bronchoscopy early next week. Sputum culture was sent this morning. Patient continues to have cough with sputum and hemoptysis. Breathing status is stable and improved from yesterday. He has been afebrile, heart rate 81, blood pressure 131/74, pulse ox 93% on room air. Patient is currently on Unasyn and vancomycin. Repeat chest x-ray reveals right lower lobe infiltrate and stable. 02/19: Patient is feeling much better today with the current IV antibiotic bronchoscopy was delayed until early next week patient is not coughing any blood today and his shortness of breath has improved. 02/20: Sputum culture came back with normal bernadette along with candidiasis, no sign of TB so far the patient still on isolation to is clear by pulmonary. Also patient will be hopefully going for bronchoscopy on Wednesday 02/21: Patient is scheduled today for bronchoscopy with Dr. Ann. He remains in isolation. He has been afebrile,HR 68, BP 131/71, pulse ox 92% on room air. Blood sugars have been running between 159 and 172. Patient continues to have sputum production. He had episode coughing through the night frequently but is better now. No hemoptysis. He is currently on Unasyn and fluconazole. REVIEW OF SYSTEMS CONSTITUTIONAL: Well-developed no acute respiratory distress. Mildly overweight. No fevers. No chills. EYES: No icterus sclerae, no conjunctivitis. EARS, NOSE, MOUTH, THROAT, and FACE: No sore throat, lymphadenopathy, carotid bruits or deformity. RESPIRATORY: Positive shortness of breath cough and wheezes with cavitary infection in the right lower lobe.. CARDIOVASCULAR: Positive PND orthopnea palpitations. GASTROINTESTINAL: No Abd pain, Nausea or vomiting, no Diarrhea or constipation, No GI Bleed, no distention or masses. GENITOURINARY: Negative for Hematuria or UTI, no kidney stones. INTEGUMENT/BREAST: Negative for any muscular injury with mild osteoarthritis.. HEMATOLOGIC/LYMPHATIC: Negative for bleed or purpura. MUSCULOSKELTAL: Negative for Myalgia or arthralgia. NEURLOGICAL: No LOC, Sz or syncope, blurred vision dizziness or abnormality.. BEHAVIORAL/PSYCH: Negative. ENDOCRINE: Negative. PHYSICAL EXAMINATION General Appearance: Alert, cooperative, no distress, appears stated age. Patient is in no acute distress. Neck HEENT: Supple, no lymphadenopathy, no thyroid enlargement, no carotid br uits. Lungs: Decreased breath sound bilaterally with fine rhonchi positive crackles in the bases with mild expiratory wheezes. Chest Wall: Chest wall normal expansion with deep inspiration no tenderness and no deformity was found on exam, no costochondral pain or discomfort. Heart: Regular rate and rhythm, S1, S2 normal, no murmur, rub or gallop. Back: Symmetric, no curvature, ROM normal, no CVA tenderness. Abdomen: Soft, non-tender, bowel sounds active all four quadrants, no masses, no organomegaly. Extremities: Extremities normal, atraumatic, no cyanosis or edema. Pulses: 2+ and symmetric. Skin: Skin color, texture, tugor normal, no rashes or lesions. Neurologic: Alert oriented x3 cranial nerves II through XII intact, no motor deficit, no abnormal balance or gait. ASSESSMENT AND PLAN 1 severe dyspnea and shortness of breath with possible right lower lobe infil trate or pneumonia, rule out infectious source, malignancy: Continue Unasyn along with fluconazole. Patient is scheduled for bronchoscopy today. 2 large cavitary in the right lower lobe with the possibility of infection versus malignancy, further management including biopsy might be highly recomm ended. 3 possible lung metastasis in the mitchell-cranial area: Again could be lung cancer with metastasis which peaked stage III lung cancer. 4 CAD: Patient seen cardiology regular basis continue medical management. 5 type 2 diabetes: Remain on oral hypoglycemic agent continue Accu-Chek with sliding scales coverage for now diet controlled. 6 hyperlipidemia: Remain on atorvastatin 40 mg daily. 7 hypertension: Continue metoprolol titrate 25 mg twice a day. 8 electrolyte imbalance: Remain on with hydration found mild hyperkalemia. 9 DVT prophylaxis: Patient be on heparin subcutaneous. 10 GI prophylaxis: Patient be on Pepcid 20 mg daily. CODE STATUS: Full code. DISCHARGE PLAN Return home early to mid week. Impression and plan of care have been directed as dictated by the signing physician. Ciara Wallis nurse practitioner acting as scribe for signing physician. Objective - Vital Signs Vital signs: Vital Signs Temp 97.8 F 02/22/20 05:00 Pulse 68 02/22/20 05:00 Resp 16 02/22/20 05:00 BP 131/71 02/22/20 05:00 Pulse Ox 92 L 02/22/20 05:00 Intake & Output 02/21/20 02/22/20 02/22/20 18:59 06:59 18:59 Intake Total 1400 3520 Balance 1400 3520 Intake: Intake, IV Titration 1400 2200 Amount Ampicillin-Sulbactam 3 gm 100 200 In Sodium Chloride 0.9% 100 ml @ 200 mls/hr IVPB Q8HR [facility] Rx#:[id number] Sodium Chloride 0.9% 1, 800 1500 000 ml @ 100 mls/hr IV . Q10H [facility]IA Rx#:[id number] Vancomycin 1,750 mg In 500 Sodium Chloride 0.9% 500 ml 500 ml @ 167 mls/hr IVPB Q12H [facility]IA Rx#: [id number] Vancomycin 2,000 mg In 500 Sodium Chloride 0.9% 500 ml 500 ml @ 167 mls/hr IVPB Q12H [facility] Rx#: [id number] Oral 1320 Other: Voiding Method Toilet Toilet # Voids 1 - Labs CBC & Chem 7: 02/21/20 06:16 02/21/20 06:16 Labs: Abnormal Lab Results - Last 24 Hours (Table) 02/21/20 02/21/20 02/21/20 Range/Units 06:16 11:33 17:13 MCHC 30.9 L (31.0-37.0) g/dL POC Glucose (mg/dL) 210 H 159 H (75-99) mg/dL 02/21/20 02/22/20 Range/Units 21:08 07:14 MCHC (31.0-37.0) g/dL POC Glucose (mg/dL) 172 H 166 H (75-99) mg/dL Microbiology - Last 24 Hours (Table) 02/18/20 16:08 Blood Culture - Preliminary Blood No Growth after 72 hours 02/20/20 Unknown Gram Stain - Final Sputum Sputum Culture - Final Etta sp,not albicans/galbr 02/19/20 08:45 Gram Stain - Final Sputum Sputum Culture - Final Etta sp,not albicans/galbr
[2020-02-22 12:01] LABS: Glucose,Whole Blood 187 mg/dL (75-99)
[2020-02-22] MEDS ORDERED: LIDOCAINE 1% INJ 10MG/ML (20 ML MDV) ONE (13:08)
[2020-02-22] MEDS ORDERED: fentaNYL (PF) 50 MCG/ML 2 ML AMP ONE (13:08)
[2020-02-22] MEDS ORDERED: MIDAZOLAM 2 MG/2 ML VIAL ONE (13:08)
[2020-02-22] MEDS ORDERED: PROPOFOL 10 MG/ML 20 ML VIAL IV ONE (13:08)
[2020-02-22] MEDS ORDERED: SUCCINYLCHOLINE CHLORIDE 100 MG/5 ML SYR IV ONE (13:08)
[2020-02-22] MEDS ORDERED: IV FLUID CONTINUATION 1,000 ML IV ONE ×2 (13:23)
--- NOTE | 2020-02-22 15:09 | P.PN ---
Subjective Progress Note Date: 02/22/20 Principal diagnosis: Right lower lobe infiltrate rule out malignancy This is a very pleasant 64-year-old gentleman who follows with Dr. Raygoza as his primary care provider. He has history of diabetes mellitus, hypertension, hyperlipidemia, obesity a former smoker, occasional marijuana use. He presented to the emergency room yesterday after developing worsening hemoptysis. He states he has been coughing up blood for approximately 3 weeks now. He states he has been very active and no other symptoms. He's been hunting, out on his ATV and doing physical work. No fever, chills or night sweats. No nausea, vomiting or diarrhea. Denies any weight loss. Denies any recent travel. Denies any recent pneumonias. He has been coughing up blood on nearly a daily basis. Computed tomography scan of the chest reveals a large cavitary lesion measuring 7.4 cm in the right lower lobe with a wall with intermediate thickness and extensive surrounding groundglass density. Suspicious for atypical fungal or mycobacterial infections. There is a second adjacent smaller area of 1.9 cm just below with the associated groundglass favoring infectious over neoplasm. There is a right hilar and subcarinal lymphadenopathy measuring up to 4.3 cm suspect reactive. Cannot exclude metastatic disease. There is a 6 mm left upper lobe nodule. A 2.3 cm right adrenal nodule, benign adrenal adenoma is suspected. He is seen today in consultation on the regular medical floor. He i s in TB isolation precautions. He is awake and alert in no acute distress. He denies any shortness of breath. Continues to cough up bloody sputum. Sample of which will be sent to the lab. Continues to deny any other symptoms. He remains afebrile. Hemodynamically stable. Maintain O2 saturations in the 90s on room air. White count 8.7. Hemoglobin 15.0. Sodium 136. Potassium 5.2. Creatinine 0.76. Influenza screen negative. CoVID 19 screen pending. Currently on vancomycin and Unasyn. The patient is seen today 02/20/2020 in follow-up on the regular medical floor. He remains awake and alert in no acute distress. Maintaining good O2 saturations in the low 90s on room air. He's afebrile. Hemodynamically stable. Still a small amounts of hemoptysis. AFB smear is negative. Sputum cultures pending. Covid 19 screen pending. He remains on bronchodilators, Unasyn, vancomycin. The patient is seen today 02/21/2020 in follow-up on the regular medical floor. He is up ambulating in his room. Awake and alert in no acute distress. He is afebrile. Maintaining O2 saturations in the 90s on room air. Hemodynamically stable. He does continue with hemoptysis. Sputum cultures are revealing Etta. White count 8.2. Hemoglobin 13.6. Creatinine 0.8. He remains on Unasyn, vancomycin, bronchodilators. Covid screen pending. On 02/22/2020 patient seen in follow-up, prior to his bronchoscopy. He is awake and alert, in no acute distress, he then room air, pulse ox 92%, he's been afebrile, hemodynamically stable, does get short of breath with exertion, continues with hemoptysis. No new labs today, blood pressure has been stable, remains on a combination of Unasyn, fluconazole, vancomycin, ID service is following. No complaints of chest pain. Objective - Vital Signs Vital signs: Vital Signs Temp 98.2 F 02/22/20 14:51 Pulse 89 02/22/20 14:51 Resp 19 02/22/20 14:51 BP 118/80 02/22/20 14:51 Pulse Ox 94 L 02/22/20 14:51 Intake & Output 02/21/20 02/22/20 02/22/20 18:59 06:59 18:59 Intake Total 1400 3520 1600 Balance 1400 3520 1600 Intake: IV 600 Intake, IV Titration 1400 2200 1000 Amount Ampicillin-Sulbactam 3 gm 100 200 100 In Sodium Chloride 0.9% 100 ml @ 200 mls/hr IVPB Q8HR [facility] Rx#:[id number] Fluconazole in NaCl,Iso- 100 Osm 200 mg In Saline 1 100ml.bag @ 100 mls/hr IVPB DAILY [facility] Rx#: [id number] Sodium Chloride 0.9% 1, 800 1500 800 000 ml @ 100 mls/hr IV . Q10H [facility] Rx#:[id number] Vancomycin 1,750 mg In 500 Sodium Chloride 0.9% 500 ml 500 ml @ 167 mls/hr IVPB Q12H [facility] Rx#: [id number] Vancomycin 2,000 mg In 500 Sodium Chloride 0.9% 500 ml 500 ml @ 167 mls/hr IVPB Q12H [facility] Rx#: [id number] Oral 1320 Other: Voiding Method Toilet Toilet Toilet Urinal # Voids 1 - Exam GENERAL EXAM: Alert, very pleasant, 64-year-old white male, on 2 L of oxygen, the possibility 92% comfortable in no apparent distress. HEAD: Normocephalic/atraumatic. EYES: Normal reaction of pupils, equal size. Conjunctiva pink, sclera white. NOSE: Clear with pink turbinates. THROAT: No erythema or exudates. NECK: No masses, no JVD, no thyroid enlargement, no adenopathy. CHEST: No chest wall deformity. Symmetrical expansion. LUNGS: Equal air entry with no crackles, wheeze, rhonchi or dullness. CVS: Regular rate and rhythm, normal S1 and S2, no gallops, no murmurs, no rubs ABDOMEN: Soft, nontender. No hepatosplenomegaly, normal bowel sounds, no guarding or rigidity. EXTREMITIES: No clubbing, no edema, no cyanosis, 2+ pulses and upper and lower extremities. MUSCULOSKELETAL: Muscle strength and tone normal. SPINE: No scoliosis or deformity SKIN: No rashes CENTRAL NERVOUS SYSTEM: Alert and oriented -3. No focal deficits, tone is normal in all 4 extremities. PSYCHIATRIC: Alert and oriented -3. Appropriate affect. Intact judgment and insight. - Labs CBC & Chem 7: 02/21/20 06:16 02/21/20 06:16 Labs: Abnormal Lab Results - Last 24 Hours (Table) 02/21/20 02/21/20 02/22/20 Range/Units 17:13 21:08 07:14 POC Glucose (mg/dL) 159 H 172 H 166 H (75-99) mg/dL 02/22/20 Range/Units 11:53 POC Glucose (mg/dL) 187 H (75-99) mg/dL Microbiology - Last 24 Hours (Table) 02/19/20 08:45 Fungal Culture - Preliminary Sputum Yeast species 02/18/20 16:08 Blood Culture - Preliminary Blood No Growth after 72 hours 02/20/20 Unknown Gram Stain - Final Sputum Sputum Culture - Final Etta sp,not albicans/galbr Assessment and Plan Plan: Assessment: 1 Hemoptysis secondary to large cavitary lesion measuring 7.4 cm in the right lower lobe with a wall with an term immediate thickness and extensive surrounding groundglass density. Suspect atypical fungal or mycobacterial infection. There is a second adjacent smaller area of 1.9 cm cavitation just below the associated groundglass with infectious etiology favored over cavitary neoplasm. AFBs are negative. Cultures pending. Remains on Unasyn and vancomycin 2 Right hilar and subcarinal lymphadenopathy measuring up to 4.3 cm. Suspect reactive. Cannot completely exclude metastatic disease. Incidental 6 mm left upper lobe pulmonary nodule. 3 2.3 cm right adrenal nodule suspect benign adrenal adenoma versus metastasis. 4 History of significant 40 year smoking history however quit 4 years ago. Occasional marijuana use. 5 Obesity 6 Coronary artery disease 7 Hyperlipidemia 8 Diabetes mellitus 9 Hypertension Plan: Patient continues with hemoptysis, he underwent bronchoscopy with BAL of right lower lobe, awaiting path results, and bronchopleural lavage results. If he continues to have significant hemoptysis we may have to consider transferring him to tertiary care hospital for bronchial arteriography for investigation of source of bleeding. This was discussed with the patient's significant other, who is agreeable with the plan. I performed a history & physical examination of the patient and discussed their management with my nurse practitioner, Alina Heredia. I reviewed the nurse practitioner's note and agree with the documented findings and plan of care. Lung sounds are positive for clear breath sounds The findings and the impression was discussed with the patient. I attest to the documentation by the nurse practitioner. Time with Patient: Less than 30
[2020-02-22 16:52] LABS: Glucose,Whole Blood 117 mg/dL (75-99)
[2020-02-22 19:48] LABS: Appearance,BF Bloody; Color,BF Red; Nucleated Cells, Body Fluid 67 /uL; RBC, Body Fluid 91600 /uL
[2020-02-22 19:53] LABS: Mononuclear WBC,Body Fluid 47 %; Polynuclear WBC,Body Fluid 50 %; Total Cells Counted,Body Fluid 100
[2020-02-22] MEDS: ATORVASTATIN 40 MG TAB PO SCH (21:07)
[2020-02-22 21:39] LABS: Glucose,Whole Blood 167 mg/dL (75-99)
[2020-02-23] MEDS: AMPICILLIN-SULBACTAM 3 GM in SODIUM CHLORIDE 0.9% 100 ML IVPB SCH ×3 (00:43→17:10)
[2020-02-23] MEDS: SODIUM CHLORIDE 0.9% 1,000 ML IV SCH ×2 (05:16→15:28)
--- NOTE | 2020-02-23 05:21 | PN ---
PROGRESS NOTE DATE OF SERVICE: 02/22/2020 REASON FOR FOLLOWUP: Cavitary pneumonia/malignancy. INTERVAL HISTORY: The patient is status post bronchoscopy this afternoon per Pulmonary. The patient has tolerated the procedure. The patient continued complaining of shortness of breath and has some hemoptysis, but no worsening. No nausea, no vomiting. No abdominal pain, no diarrhea. PHYSICAL EXAMINATION: Blood pressure is 120/73 with a pulse of 81, temperature 98. He is 96% on 2 L nasal cannula. General description is an elderly male up in the bed in no distress. RESPIRATORY SYSTEM: Unlabored breathing, decreased intensity of breath sounds. No wheeze. HEART: S1, S2. Regular rate and rhythm. ABDOMEN: Soft, no tenderness. LABS: Bronch cultures pending. DIAGNOSTIC IMPRESSION AND PLAN: Patient with a cavitary lesion with concern for possible malignancy, status post bronchoscopy and biopsy. Will wait for the culture to finalize. Currently covered with Unasyn and Diflucan and monitor clinical course closely. MMODL / IJN: [id number] /
[2020-02-23 07:12] LABS: Glucose,Whole Blood 169 mg/dL (75-99)
--- NOTE | 2020-02-23 07:22 | PCN ---
PROCEDURE NOTE PROCEDURE: Bronchoscopy, airway examination, therapeutic lavage, BAL right lower lobe, brushes right lower lobe. PREOPERATIVE DIAGNOSIS: Hemoptysis. POSTOPERATIVE DIAGNOSIS: Hemoptysis. OPERATORS: Dr. Ann and Alina Heredia. DESCRIPTION OF PROCEDURE: Anesthesia provided general anesthesia. We did the procedure room #1 under general anesthesia. There was informed consent and universal timeout. After the patient was intubated and being fully monitored, the bronchoscope was inserted through the bronchoscope adapter connected to the endotracheal tube. The bronchoscope was taken through the endotracheal tube into the trachea. There was blood noted in the distal trachea and also in the right and left mainstem. With some difficulty, and saline, the blood was suctioned. There was a thorough inspection of both the right and left lung. The blood appeared to be coming from the right lower lobe. The blood was suctioned from other areas of the lung with saline. The bronchoscope was wedged into the right lower lobe. We did a BAL in this area. Thirty mL was recovered. Next, we did brushes in the right lower lobe. The patient tolerated the procedure well. The fluid and the brushes will be sent for analysis. There was no immediate complication. The patient tolerated the procedure well and the patient will be recovered. MMODL / IJN: [id number] /
[2020-02-23] MEDS: ALBUTEROL HFA INHALER INHALATION SCH ×4 (07:46→20:03)
[2020-02-23] MEDS: ISOSORBIDE MONONITRATE ER 30 MG TAB.ER.24H PO SCH (10:56)
[2020-02-23] MEDS: FAMOTIDINE 20 MG TAB PO SCH (10:56)
[2020-02-23] MEDS: ASPIRIN 81 MG PO SCH (10:56)
[2020-02-23] MEDS: METOPROLOL TARTRATE 25 MG TAB PO SCH ×2 (10:56→20:51)
[2020-02-23] MEDS: HEPARIN SODIUM,PORCINE 5,000 UNIT/ML 1 ML VIAL SQ SCH (10:56)
[2020-02-23 11:54] LABS: Glucose,Whole Blood 183 mg/dL (75-99)
[2020-02-23] MEDS: FLUCONAZOLE IN NACL,ISO-OSM 200 MG in SALINE 1 100ML.BAG IVPB SCH (12:03)
--- NOTE | 2020-02-23 13:54 | P.PN ---
Subjective Progress Note Date: 02/23/20 HISTORY OF PRESENT ILLNESS 64-year-old mildly overweight male one of Dr. Levin patient with past medical history of coronary artery disease, diabetes, hypertension, COPD and m ild PAD who is a former smoker pack-a-day for over 40 years had a quit 4 years ago who has not been hospitalized in a while apparently developed to have significant and worsening shortness of breath for the last 3 weeks become much worse last few days patient developed to have hemoptysis with productive cough along with significant shortness of breath with minimum exertion symptoms become much worse associated with fever and chills. Patient has not been hospitalized recently or exposed to any infectious process including Covid 19 or tuberculosis. He presented to the emergency department with above symptoms was seen and evaluated surprisingly his white blood cell was normal blood sugar was mildly elevated chest x-ray showed infection with pneumonia on the right lower lobe, CT of the chest showed large cavitation of 7.4 cm of the right lower lobe surrounded with groundglass an infectious etiology is favored over cavitary neoplasm finding might be consistent with atypical fungal or mycobacterial infection also had right hilar and subcarinal lymphadenopathy measuring up to 4.3 cm probably reactive cannot exclude the possibility of metastasis, 6 mm left upper lobe pulmonary nodular, 2.3 cm right adrenal nodular. Patient was started on Unasyn along with vancomycin updraft treatment was start steroid as well consult pulmonary and prepare for possible bronchoscopy and further management might require bronchoscopy and biopsy for further diagnosis. 02/18: The patient is in TB isolation. We will add in Covid and influenza testing. Patient is followed by Dr. Rowe and patient may require bronchoscopy early next week. Sputum culture was sent this morning. Patient continues to have cough with sputum and hemoptysis. Breathing status is stable and improved from yesterday. He has been afebrile, heart rate 81, blood pressure 131/74, pulse ox 93% on room air. Patient is currently on Unasyn and vancomycin. Repeat chest x-ray reveals right lower lobe infiltrate and stable. 02/19: Patient is feeling much better today with the current IV antibiotic bronchoscopy was delayed until early next week patient is not coughing any blood today and his shortness of breath has improved. 02/20: Sputum culture came back with normal bernadette along with candidiasis, no sign of TB so far the patient still on isolation to is clear by pulmonary. Also patient will be hopefully going for bronchoscopy on Wednesday 02/21: Patient is scheduled today for bronchoscopy with Dr. Ann. He remains in isolation. He has been afebrile,HR 68, BP 131/71, pulse ox 92% on room air. Blood sugars have been running between 159 and 172. Patient continues to have sputum production. He had episode coughing through the night frequently but is better now. No hemoptysis. He is currently on Unasyn and fluconazole. 02/22: Yesterday, patient underwent bronchoscopy that did find blood in the distal trachea, right and left mainstem. Pathology and cultures are pending. Patient is also followed by infectious disease and covered with Unasyn and Diflucan. Patient is having hemoptysis today and apparently Dr. Ann requested the patient be transferred to [facility]. Patient is out of network for [facility] and case management associate is trying to find another facility for him. Patient has been afebrile, heart rate 90, blood pressure 117/75, pulse ox 92% on room air. REVIEW OF SYSTEMS CONSTITUTIONAL: Well-developed no acute respiratory distress. No fevers. No ch ills. EYES: No icterus sclerae, no conjunctivitis. EARS, NOSE, MOUTH, THROAT, and FACE: No sore throat, lymphadenopathy, carotid bruits or deformity. RESPIRATORY: Positive shortness of breath cough and wheezes with cavitary infection in the right lower lobe.. CARDIOVASCULAR: Positive PND orthopnea palpitations. GASTROINTESTINAL: No Abd pain, Nausea or vomiting, no Diarrhea or constipation, No GI Bleed, no distention or masses. GENITOURINARY: Negative for Hematuria or UTI, no kidney stones. INTEGUMENT/BREAST: Negative for any muscular injury with mild osteoarthritis.. HEMATOLOGIC/LYMPHATIC: Negative for bleed or purpura. MUSCULOSKELTAL: Negative for Myalgia or arthralgia. NEURLOGICAL: No LOC, Sz or syncope, blurred vision dizziness or abnormality.. BEHAVIORAL/PSYCH: Negative. ENDOCRINE: Negative. PHYSICAL EXAMINATION General Appearance: Alert, cooperative, no distress, appears stated age. Patient is in no acute distress. Neck HEENT: Supple, no lymphadenopathy, no thyroid enlargement, no carotid bruits. Lungs: Decreased breath sound bilaterally with fine rhonchi positive crackles in the bases with mild expiratory wheezes. Chest Wall: Chest wall normal expansion with deep inspiration no tenderness and no deformity was found on exam, no costochondral pain or discomfort. Heart: Regular rate and rhythm, S1, S2 normal, no murmur, rub or gallop. Back: Symmetric, no curvature, ROM normal, no CVA tenderness. Abdomen: Soft, non-tender, bowel sounds active all four quadrants, no masses, no organomegaly. Extremities: Extremities normal, atraumatic, no cyanosis or edema. Pulses: 2+ and symmetric. Skin: Skin color, texture, tugor normal, no rashes or lesions. Neurologic: Alert oriented x3 cranial nerves II through XII intact, no motor deficit, no abnormal balance or gait. ASSESSMENT AND PLAN 1 severe dyspnea and shortness of breath with possible right lower lobe infiltrate or pneumonia, rule out infectious source, malignancy: Continue Unasyn along with fluconazole. Patient is status post bronchoscopy. 2 large cavitary in the right lower lobe with the possibility of infection versus malignancy, further management including biopsy might be highly recommended. 3 possible lung metastasis in the mitchell-cranial area: Again could be lung cancer with metastasis which peaked stage III lung cancer. 4 CAD: Patient seen cardiology regular basis continue medical management. 5 type 2 diabetes: Remain on oral hypoglycemic agent continue Accu-Chek with sliding scales coverage for now diet controlled. 6 hyperlipidemia: Remain on atorvastatin 40 mg daily. 7 hypertension: Continue metoprolol titrate 25 mg twice a day. 8 electrolyte imbalance: Remain on with hydration found mild hyperkalemia. 9 DVT prophylaxis: Patient be on heparin subcutaneous. 10 GI prophylaxis: Patient be on Pepcid 20 mg daily. CODE STATUS: Full code. DISCHARGE PLAN Transfer to tertiary care. lab manager is trying to make arrangements for a facility that accepts [facility] network. Impression and plan of care have been directed as dictated by the signing physician. Ciaar Wallis nurse practitioner acting as scribe for signing physician. Objective - Vital Signs Vital signs: Vital Signs Temp 98.1 F 02/23/20 05:00 Pulse 69 02/23/20 05:00 Resp 18 02/23/20 05:00 BP 122/69 02/23/20 05:00 Pulse Ox 90 L 02/23/20 05:00 Intake & Output 02/22/20 02/23/20 02/23/20 18:59 06:59 18:59 Intake Total 1600 450 Output Total 650 Balance 1600 -200 Intake: IV 600 Intake, IV Titration 1000 100 Amount Ampicillin-Sulbactam 3 gm 100 100 In Sodium Chloride 0.9% 100 ml @ 200 mls/hr IVPB Q8HR [facility] Rx#:[id number] Fluconazole in NaCl,Iso- 100 Osm 200 mg In Saline 1 100ml.bag @ 100 mls/hr IVPB DAILY [facility] Rx#: [id number] Sodium Chloride 0.9% 1, 800 000 ml @ 100 mls/hr IV . Q10H [facility] Rx#:[id number] Oral 350 Output: Urine 650 Other: Voiding Method Toilet Toilet Urinal Urinal # Voids 1 - Labs CBC & Chem 7: 02/21/20 06:16 02/21/20 06:16 Labs: Abnormal Lab Results - Last 24 Hours (Table) 02/22/20 02/22/20 02/22/20 Range/Units 11:53 16:44 21:35 POC Glucose (mg/dL) 187 H 117 H 167 H (75-99) mg/dL 02/23/20 Range/Units 07:06 POC Glucose (mg/dL) 169 H (75-99) mg/dL Microbiology - Last 24 Hours (Table) 02/18/20 16:08 Blood Culture - Preliminary Blood No Growth after 96 hours 02/22/20 13:43 Bronchial Washings Culture - Preliminary Bronchoalviolar Lavage - Right 02/22/20 13:43 Fungal Culture - Preliminary Bronchoalviolar Lavage - Right 02/22/20 13:43 Acid Fast Bacilli Culture - Preliminary Bronchoalviolar Lavage - Right 02/19/20 08:45 Fungal Culture - Preliminary Sputum Yeast species
[2020-02-23 17:34] LABS: Glucose,Whole Blood 206 mg/dL (75-99)
[2020-02-23] MEDS: ATORVASTATIN 40 MG TAB PO SCH (20:50)
[2020-02-23 20:57] LABS: Glucose,Whole Blood 182 mg/dL (75-99)
--- NOTE | 2020-02-23 21:07 | PN ---
PROGRESS NOTE This is a 64-year-old gentleman whom we started seeing on Saturday. The patient was admitted actually on February 17. The patient had been having significant hemoptysis. We did a bronchoscopy on February 21. The patient was found to have significant bleeding from the right lower lobe. Samples were taken from this area. He continues to cough up blood, although it seems to have slowed down a bit. I did mention to the nurses and to the primary service that the patient might be considered to be transferred to a facility such as [facility], should he continue to cough up blood, where he could have bronchial arteriography and embolization. He shows me a cup today. There was quite a bit of bright red blood in it. Apparently the outside hospitals do not have available beds for this patient and/or the patient's insurance is not accepted. Clinically he does not look bad. He is not particularly short of breath. He is not requiring any supplemental oxygen. PHYSICAL EXAMINATION: VITAL SIGNS: Current vital signs are reviewed. His room-air saturation is 92%. Blood pressure 117/75, mean 89, respiratory rate 20, heart rate 90, and temperature 98.1. GENERAL APPEARANCE: He appears in no acute distress. There is no audible wheezing, use of accessory muscles or conversational dyspnea. HEENT: Examination is grossly unremarkable. NECK: Supple. Full range of motion. No adenopathy. Neck veins are flat. CARDIOVASCULAR: Examination reveals regular rhythm and rate. S1, S2 normal. No S3, S4 or murmur. LUNGS: Lungs reveal diffuse coarse rhonchi. They were mostly noted within the right lung. There are some rhonchi noted on the left side as well. No wheezes. A few scattered crackles. ABDOMEN: Soft. Bowel sounds are heard. EXTREMITIES: Intact. No cyanosis, clubbing or edema. SKIN: Without rash. NEUROLOGIC: Neurologic examination is nonfocal. LABS: Reviewed. Nothing new from today. BAL samples are noted. Microbiology is essentially negative other than for some Etta tropicalis in his sputum. No recent chest x-ray to report. MEDICATIONS: Reviewed. His medications currently include albuterol inhaler, Unasyn, aspirin, Lipitor, famotidine, fluconazole, heparin subcutaneously, Imdur, metoprolol and saline. ASSESSMENT: 1. Hemoptysis secondary to a large cavitary lesion measuring 7.4 cm in the right lower lobe which could relate to atypical fungal or mycobacterial infection and/or malignancy. 2. Right hilar and subcarinal adenopathy, likely reactive in nature. 3. Right adrenal nodule measuring 2.3 cm, likely an adrenal adenoma. 4. History of 40 years of significant tobacco use; quit 4 years ago. 5. Obesity. 6. Coronary artery disease. 7. Hyperlipidemia. 8. Diabetes mellitus. 9. Hypertension. Plan: Currently the patient seemed to be relatively stable. The patient appears to be coughing up less blood today than yesterday. Cytology on the patient's lavage and brushes on the patient's bronchoscopy are negative for malignancy. Microbiology is currently pending. Will continue to follow. Again, if he continues to cough up blood and/or coughs up more blood, the patient should be transferred for bronchial arteriography and embolization therapy. Will continue to follow. DAVID / AKIKO: [id number] / MTDD
[2020-02-24] MEDS: AMPICILLIN-SULBACTAM 3 GM in SODIUM CHLORIDE 0.9% 100 ML IVPB SCH ×4 (00:14→23:28)
[2020-02-24] MEDS: SODIUM CHLORIDE 0.9% 1,000 ML IV SCH ×2 (00:14→12:09)
--- NOTE | 2020-02-24 05:04 | PN ---
PROGRESS NOTE DATE OF SERVICE: 02/23/2020 REASON FOR FOLLOWUP: Cavitary pneumonia/malignancy. INTERVAL HISTORY: The patient is currently afebrile. The patient is breathing comfortably. Continued to have a cough with hemoptysis, but no worsening. No nausea, no vomiting. No abdominal pain, no diarrhea. PHYSICAL EXAMINATION: Blood pressure 117/75, pulse of 90, temperature 98.1. He is 92% on room air. General description is an elderly male up in the chair in no distress. RESPIRATORY SYSTEM: Unlabored breathing with decreased intensity of breath sounds. No wheeze. HEART: S1, S2. Regular rate and rhythm. ABDOMEN: Soft. No tenderness. LABS: No new labs have been obtained today. Bronch cultures currently pending. DIAGNOSTIC IMPRESSION AND PLAN: Patient with cavitary pneumonia in this patient who is status post bronchoscopy. Bronchoscopy cultures currently pending. Bronch wash was acellular and no evidence of malignancy. Patient is covered with Unasyn and Diflucan to continue and monitor his clinical course closely. MMODL / IJN: [id number] /
[2020-02-24 05:59] LABS: HCT 39.6 % (39.0-53.0); HGB 12.7 gm/dL (13.0-17.5); Hypochromasia Slight; MCH 30.4 pg (25.0-35.0); MCHC 32.1 g/dL (31.0-37.0); MCV 94.8 fL (80.0-100.0); Mean Platelet Volume 7.8; Platelet Count 268 k/uL (150-450); RBC 4.17 m/uL (4.30-5.90); RDW 13.8 % (11.5-15.5)
[2020-02-24 07:29] LABS: Glucose,Whole Blood 201 mg/dL (75-99)
[2020-02-24] MEDS: METOPROLOL TARTRATE 25 MG TAB PO SCH ×2 (07:53→20:21)
[2020-02-24] MEDS: ASPIRIN 81 MG PO SCH (07:53)
[2020-02-24] MEDS: FAMOTIDINE 20 MG TAB PO SCH (07:53)
[2020-02-24] MEDS: ISOSORBIDE MONONITRATE ER 30 MG TAB.ER.24H PO SCH (07:54)
[2020-02-24] MEDS: FLUCONAZOLE IN NACL,ISO-OSM 200 MG in SALINE 1 100ML.BAG IVPB SCH (07:54)
[2020-02-24] MEDS: ALBUTEROL HFA INHALER INHALATION SCH ×4 (07:59→19:55)
[2020-02-24] MEDS: HYDROcodone/APAP 5-325MG 1 EACH TAB PO PRN ×2 (08:41→20:21)
[2020-02-24 09:24] LABS: African American GFR (CKD) 102.8 (60.0-200.0); Anion Gap 8.5 mmol/L (4.00-12.00); BUN/Creat Ratio 11.11 Ratio (12.00-20.00); Calcium 9.1 mg/dL (8.7-10.3); Carbon Dioxide 25.5 mmol/L (21.6-31.8); Non-African American GFR(CKD) 88.7 (60.0-200.0); Potassium 4.1 mmol/L (3.5-5.5)
[2020-02-24 11:48] LABS: Glucose,Whole Blood 257 mg/dL (75-99)
[2020-02-24] MEDS: INSULIN ASPART (NovoLOG) 100 UNIT/ML VIAL SQ SCH ×3 (12:03→20:53)
--- NOTE | 2020-02-24 14:08 | P.PN ---
Subjective Progress Note Date: 02/24/20 Principal diagnosis: Right lower lobe infiltrate rule out malignancy This is a very pleasant 64-year-old gentleman who follows with Dr. Raygoza as his primary care provider. He has history of diabetes mellitus, hypertension, hyperlipidemia, obesity a former smoker, occasional marijuana use. He presented to the emergency room yesterday after developing worsening hemoptysis. He states he has been coughing up blood for approximately 3 weeks now. He states he has been very active and no other symptoms. He's been hunting, out on his ATV and doing physical work. No fever, chills or night sweats. No nausea, vomiting or diarrhea. Denies any weight loss. Denies any recent travel. Denies any recent pneumonias. He has been coughing up blood on nearly a daily basis. Computed tomography scan of the chest reveals a large cavitary lesion measuring 7.4 cm in the right lower lobe with a wall with intermediate thickness and extensive surrounding groundglass density. Suspicious for atypical fungal or mycobacterial infections. There is a second adjacent smaller area of 1.9 cm just below with the associated groundglass favoring infectious over neoplasm. There is a right hilar and subcarinal lymphadenopathy measuring up to 4.3 cm suspect reactive. Cannot exclude metastatic disease. There is a 6 mm left upper lobe nodule. A 2.3 cm right adrenal nodule, benign adrenal adenoma is suspected. He is seen today in consultation on the regular medical floor. He i s in TB isolation precautions. He is awake and alert in no acute distress. He denies any shortness of breath. Continues to cough up bloody sputum. Sample of which will be sent to the lab. Continues to deny any other symptoms. He remains afebrile. Hemodynamically stable. Maintain O2 saturations in the 90s on room air. White count 8.7. Hemoglobin 15.0. Sodium 136. Potassium 5.2. Creatinine 0.76. Influenza screen negative. CoVID 19 screen pending. Currently on vancomycin and Unasyn. The patient is seen today 02/20/2020 in follow-up on the regular medical floor. He remains awake and alert in no acute distress. Maintaining good O2 saturations in the low 90s on room air. He's afebrile. Hemodynamically stable. Still a small amounts of hemoptysis. AFB smear is negative. Sputum cultures pending. Covid 19 screen pending. He remains on bronchodilators, Unasyn, vancomycin. The patient is seen today 02/21/2020 in follow-up on the regular medical floor. He is up ambulating in his room. Awake and alert in no acute distress. He is afebrile. Maintaining O2 saturations in the 90s on room air. Hemodynamically stable. He does continue with hemoptysis. Sputum cultures are revealing Etta. White count 8.2. Hemoglobin 13.6. Creatinine 0.8. He remains on Unasyn, vancomycin, bronchodilators. Covid screen pending. On 02/22/2020 patient seen in follow-up, prior to his bronchoscopy. He is awake and alert, in no acute distress, he then room air, pulse ox 92%, he's been afebrile, hemodynamically stable, does get short of breath with exertion, continues with hemoptysis. No new labs today, blood pressure has been stable, remains on a combination of Unasyn, fluconazole, vancomycin, ID service is following. No complaints of chest pain. On 02/24/2020 patient seen in follow-up on medical surgical floor. Still coughing up bright red blood, although according to the patient that the amount seems to be have decreased. Otherwise patient is looking very comfortable, he is on room air, pulse ox is 93%, denies any chest pain, denies any shortness of breath, he is afebrile, respirations are nonlabored, he is not able to lay down flat in bed, but otherwise he is breathing comfortably. His his bronchial wash cytology was nondiagnostic of a mass lesion or malignancy. Remains on Unasyn and Diflucan for antibiotic coverage, ID service is following, he's had no fever or chills Objective - Vital Signs Vital signs: Vital Signs Temp 97.6 F 02/24/20 12:17 Pulse 64 02/24/20 12:17 Resp 16 02/24/20 12:17 BP 119/74 02/24/20 12:17 Pulse Ox 93 L 02/24/20 12:17 Intake & Output 02/23/20 02/24/20 02/24/20 18:59 06:59 18:59 Intake Total 400 1200 240 Balance 400 1200 240 Intake: Intake, IV Titration 400 500 Amount Ampicillin-Sulbactam 3 gm 100 In Sodium Chloride 0.9% 100 ml @ 200 mls/hr IVPB Q8HR [facility] Rx#:[id number] Fluconazole in NaCl,Iso- 100 Osm 200 mg In Saline 1 100ml.bag @ 100 mls/hr IVPB DAILY [facility] Rx#: [id number] Sodium Chloride 0.9% 1, 200 500 000 ml @ 100 mls/hr IV . Q10H [facility] Rx#:[id number] Oral 700 240 Other: Voiding Method Toilet Toilet Toilet Urinal Urinal Urinal # Voids 1 - Exam GENERAL EXAM: Alert, very pleasant, 64-year-old white male, on room air with pulse ox 93% comfortable in no apparent distress. HEAD: Normocephalic/atraumatic. EYES: Normal reaction of pupils, equal size. Conjunctiva pink, sclera white. NOSE: Clear with pink turbinates. THROAT: No erythema or exudates. NECK: No masses, no JVD, no thyroid enlargement, no adenopathy. CHEST: No chest wall deformity. Symmetrical expansion. LUNGS: Equal air entry with no crackles, wheeze, rhonchi or dullness. CVS: Regular rate and rhythm, normal S1 and S2, no gallops, no murmurs, no rubs ABDOMEN: Soft, nontender. No hepatosplenomegaly, normal bowel sounds, no guarding or rigidity. EXTREMITIES: No clubbing, no edema, no cyanosis, 2+ pulses and upper and lower extremities. MUSCULOSKELETAL: Muscle strength and tone normal. SPINE: No scoliosis or deformity SKIN: No rashes CENTRAL NERVOUS SYSTEM: Alert and oriented -3. No focal deficits, tone is normal in all 4 extremities. PSYCHIATRIC: Alert and oriented -3. Appropriate affect. Intact judgment and insight. - Labs CBC & Chem 7: 02/24/20 05:20 02/24/20 05:20 Labs: Abnormal Lab Results - Last 24 Hours (Table) 02/23/20 02/23/20 02/24/20 Range/Units 17:33 20:50 05:20 RBC 4.17 L (4.30-5.90) m/uL Hgb 12.7 L (13.0-17.5) gm/dL BUN/Creatinine Ratio (12.00-20.00) Ratio Glucose (70-110) mg/dL POC Glucose (mg/dL) 206 H 182 H (75-99) mg/dL 02/24/20 02/24/20 02/24/20 Range/Units 05:20 07:27 11:47 RBC (4.30-5.90) m/uL Hgb (13.0-17.5) gm/dL BUN/Creatinine Ratio 11.11 L (12.00-20.00) Ratio Glucose 215 H (70-110) mg/dL POC Glucose (mg/dL) 201 H 257 H (75-99) mg/dL Microbiology - Last 24 Hours (Table) 02/22/20 13:43 Gram Stain - Preliminary Bronchoalviolar Lavage - Right Bronchial Washings Culture - Preliminary 02/18/20 16:08 Blood Culture - Preliminary Blood No Growth after 120 hours 02/22/20 13:43 Acid Fast Bacilli Smear - Final Bronchoalviolar Lavage - Right Acid Fast Bacilli Culture - Preliminary 02/19/20 08:45 Fungal Culture - Preliminary Sputum Etta tropicalis Assessment and Plan Plan: Assessment: 1 Hemoptysis secondary to large cavitary lesion measuring 7.4 cm in the right lower lobe with a wall with an term immediate thickness and extensive surrounding groundglass density. Suspect atypical fungal or mycobacterial infection. There is a second adjacent smaller area of 1.9 cm cavitation just below the associated groundglass with infectious etiology favored over cavitary neoplasm. AFBs are negative. Cultures pending. Remains on Unasyn and vancomycin 2 Right hilar and subcarinal lymphadenopathy measuring up to 4.3 cm. Suspect reactive. Cannot completely exclude metastatic disease. Incidental 6 mm left upper lobe pulmonary nodule. 3 2.3 cm right adrenal nodule suspect benign adrenal adenoma versus metastasis. 4 History of significant 40 year smoking history however quit 4 years ago. Occasional marijuana use. 5 Obesity 6 Coronary artery disease 7 Hyperlipidemia 8 Diabetes mellitus 9 Hypertension Plan: The hemoptysis continues although the amount seems to be decreasing, vital signs are stable, no chest pain, or worsening dyspnea, patient is on room air, his cytology was nondiagnostic. We discontinued the subcutaneous heparin yesterday, we'll discontinue the baby aspirin today. Continue monitoring for any worsening of hemoptysis, oxygenation, or shortness of breath, which I to make arrangements to transfer the patient to a tertiary care center, however were told there are no beds at [facility], [facility], or [facility]. I performed a history & physical examination of the patient and discussed their management with my nurse practitioner, Alina Heredia. I reviewed the nurse practitioner's note and agree with the documented findings and plan of care. Lung sounds are positive for clear breath sounds The findings and the impression was discussed with the patient. I attest to the documentation by the nurse practitioner. Time with Patient: Less than 30
--- NOTE | 2020-02-24 14:40 | P.PN ---
Subjective Progress Note Date: 02/24/20 HISTORY OF PRESENT ILLNESS 64-year-old mildly overweight male one of Dr. Levin patient with past medical history of coronary artery disease, diabetes, hypertension, COPD and m ild PAD who is a former smoker pack-a-day for over 40 years had a quit 4 years ago who has not been hospitalized in a while apparently developed to have significant and worsening shortness of breath for the last 3 weeks become much worse last few days patient developed to have hemoptysis with productive cough along with significant shortness of breath with minimum exertion symptoms become much worse associated with fever and chills. Patient has not been hospitalized recently or exposed to any infectious process including Covid 19 or tuberculosis. He presented to the emergency department with above symptoms was seen and evaluated surprisingly his white blood cell was normal blood sugar was mildly elevated chest x-ray showed infection with pneumonia on the right lower lobe, CT of the chest showed large cavitation of 7.4 cm of the right lower lobe surrounded with groundglass an infectious etiology is favored over cavitary neoplasm finding might be consistent with atypical fungal or mycobacterial infection also had right hilar and subcarinal lymphadenopathy measuring up to 4.3 cm probably reactive cannot exclude the possibility of metastasis, 6 mm left upper lobe pulmonary nodular, 2.3 cm right adrenal nodular. Patient was started on Unasyn along with vancomycin updraft treatment was start steroid as well consult pulmonary and prepare for possible bronchoscopy and further management might require bronchoscopy and biopsy for further diagnosis. 02/18: The patient is in TB isolation. We will add in Covid and influenza testing. Patient is followed by Dr. Rowe and patient may require bronchoscopy early next week. Sputum culture was sent this morning. Patient continues to have cough with sputum and hemoptysis. Breathing status is stable and improved from yesterday. He has been afebrile, heart rate 81, blood pressure 131/74, pulse ox 93% on room air. Patient is currently on Unasyn and vancomycin. Repeat chest x-ray reveals right lower lobe infiltrate and stable. 02/19: Patient is feeling much better today with the current IV antibiotic bronchoscopy was delayed until early next week patient is not coughing any blood today and his shortness of breath has improved. 02/20: Sputum culture came back with normal bernadette along with candidiasis, no sign of TB so far the patient still on isolation to is clear by pulmonary. Also patient will be hopefully going for bronchoscopy on Wednesday 02/21: Patient is scheduled today for bronchoscopy with Dr. Ann. He remains in isolation. He has been afebrile,HR 68, BP 131/71, pulse ox 92% on room air. Blood sugars have been running between 159 and 172. Patient continues to have sputum production. He had episode coughing through the night frequently but is better now. No hemoptysis. He is currently on Unasyn and fluconazole. 02/22: Yesterday, patient underwent bronchoscopy that did find blood in the distal trachea, right and left mainstem. Pathology and cultures are pending. Patient is also followed by infectious disease and covered with Unasyn and Diflucan. Patient is having hemoptysis today and apparently Dr. Ann requested the patient be transferred to [facility]. Patient is out of network for [facility] and correctional counselor/case manager is trying to find another facility for him. Patient has been afebrile, heart rate 90, blood pressure 117/75, pulse ox 92% on room air. 02/23: Patient continues to have hemoptysis but amount is decreasing. Hemoglobin is stable at 12.7, WBC 9, platelet count 268. Electrolytes and renal function normal. Blood sugars are elevated running between 182 and 215. Patient is slowly improving anticipate possible discharge by Saturday. Pathology is pending. REVIEW OF SYSTEMS CONSTITUTIONAL: Well-developed no acute respiratory distress. No fevers. No chills. EYES: No icterus sclerae, no conjunctivitis. EARS, NOSE, MOUTH, THROAT, and FACE: No sore throat, lymphadenopathy, carotid bruits or deformity. RESPIRATORY: Positive shortness of breath cough and wheezes, hemoptysis. CARDIOVASCULAR: Positive PND orthopnea palpitations. GASTROINTESTINAL: No Abd pain, Nausea or vomiting, no Diarrhea or constipation, No GI Bleed, no distention or masses. GENITOURINARY: Negative for Hematuria or UTI, no kidney stones. INTEGUMENT/BREAST: Negative for any muscular injury with mild osteoarthritis.. HEMATOLOGIC/LYMPHATIC: Negative for bleed or purpura. MUSCULOSKELTAL: Negative for Myalgia or arthralgia. NEURLOGICAL: No LOC, Sz or syncope, blurred vision dizziness or abnormality.. BEHAVIORAL/PSYCH: Negative. ENDOCRINE: Negative. PHYSICAL EXAMINATION General Appearance: Alert, cooperative, no distress, appears stated age. Patient is in no acute distress. Neck HEENT: Supple, no lymphadenopathy, no thyroid enlargement, no carotid bruits. Lungs: Decreased breath sound bilaterally with fine rhonchi positive crackles in the bases with mild expiratory wheezes. Chest Wall: Chest wall normal expansion with deep inspiration no tenderness and no deformity was found on exam, no costochondral pain or discomfort. Heart: Regular rate and rhythm, S1, S2 normal, no murmur, rub or gallop. Back: Symmetric, no curvature, ROM normal, no CVA tenderness. Abdomen: Soft, non-tender, bowel sounds active all four quadrants, no masses, no organomegaly. Extremities: Extremities normal, atraumatic, no cyanosis or edema. Pulses: 2+ and symmetric. Skin: Skin color, texture, tugor normal, no rashes or lesions. Neurologic: Alert oriented x3 cranial nerves II through XII intact, no motor deficit, no abnormal balance or gait. ASSESSMENT AND PLAN 1 severe dyspnea and shortness of breath with possible right lower lobe infiltrate or pneumonia, rule out infectious source, malignancy: Continue Unasyn along with fluconazole. Patient is status post bronchoscopy. Pathology is pending. 2 large cavitary in the right lower lobe with the possibility of infection versus malignancy, further management including biopsy might be highly recommended. 3 possible lung metastasis in the mitchell-cranial area: Again could be lung cancer with metastasis which peaked stage III lung cancer. 4 CAD: Patient seen cardiology regular basis continue medical management. 5 type 2 diabetes: Remain on oral hypoglycemic agent continue Accu-Chek with sliding scales coverage for now diet controlled. 6 hyperlipidemia: Remain on atorvastatin 40 mg daily. 7 hypertension: Continue metoprolol titrate 25 mg twice a day. 8 electrolyte imbalance: Remain on with hydration found mild hyperkalemia. 9 DVT prophylaxis: Patient be on heparin subcutaneous. 10 GI prophylaxis: Patient be on Pepcid 20 mg daily. CODE STATUS: Full code. DISCHARGE PLAN Tomei end of the week. Impression and plan of care have been directed as dictated by the signing physician. Ciara Wallis nurse practitioner acting as scribe for signing physician. Objective - Vital Signs Vital signs: Vital Signs Temp 98.0 F 02/24/20 05:00 Pulse 78 02/24/20 05:00 Resp 18 02/24/20 05:00 BP 138/88 02/24/20 05:00 Pulse Ox 91 L 02/24/20 05:00 Intake & Output 02/23/20 02/24/20 02/24/20 18:59 06:59 18:59 Intake Total 400 1200 Balance 400 1200 Intake: Intake, IV Titration 400 500 Amount Ampicillin-Sulbactam 3 gm 100 In Sodium Chloride 0.9% 100 ml @ 200 mls/hr IVPB Q8HR DIA Rx#:[id number] Fluconazole in NaCl,Iso- 100 Osm 200 mg In Saline 1 100ml.bag @ 100 mls/hr IVPB DAILY DIA Rx#: [id number] Sodium Chloride 0.9% 1, 200 500 000 ml @ 100 mls/hr IV . Q10H DIA Rx#:[id number] Oral 700 Other: Voiding Method Toilet Toilet Urinal Urinal # Voids 1 - Labs CBC & Chem 7: 02/24/20 05:20 02/24/20 05:20 Labs: Abnormal Lab Results - Last 24 Hours (Table) 02/23/20 02/23/20 02/23/20 Range/Units 11:34 17:33 20:50 RBC (4.30-5.90) m/uL Hgb (13.0-17.5) gm/dL POC Glucose (mg/dL) 183 H 206 H 182 H (75-99) mg/dL 02/24/20 02/24/20 Range/Units 05:20 07:27 RBC 4.17 L (4.30-5.90) m/uL Hgb 12.7 L (13.0-17.5) gm/dL POC Glucose (mg/dL) 201 H (75-99) mg/dL Microbiology - Last 24 Hours (Table) 02/18/20 16:08 Blood Culture - Preliminary Blood No Growth after 120 hours 02/22/20 13:43 Acid Fast Bacilli Smear - Final Bronchoalviolar Lavage - Right Acid Fast Bacilli Culture - Preliminary 02/19/20 08:45 Fungal Culture - Preliminary Sputum Etta tropicalis 02/22/20 13:43 Gram Stain - Preliminary Bronchoalviolar Lavage - Right Bronchial Washings Culture - Preliminary 02/22/20 13:43 Fungal Culture - Preliminary Bronchoalviolar Lavage - Right
[2020-02-24 16:59] LABS: Glucose,Whole Blood 146 mg/dL (75-99)
[2020-02-24] MEDS: ATORVASTATIN 40 MG TAB PO SCH (20:21)
[2020-02-24 20:31] LABS: Glucose,Whole Blood 214 mg/dL (75-99)
[2020-02-24 22:48] LABS: Hemoglobin A1C 8.6 % (4.0-6.0)
--- NOTE | 2020-02-24 23:07 | PN ---
PROGRESS NOTE DATE OF SERVICE: 02/24/2020 REASON FOR FOLLOWUP: Cavitary pneumonia. INTERVAL HISTORY: The patient is currently afebrile. The patient is breathing more comfortably. The patient denies having any chest pain. He continues to have a cough and some hemoptysis. No nausea, no vomiting. No abdominal pain or any diarrhea. PHYSICAL EXAMINATION: His blood pressure is 155/75 with a pulse of 77, temperature 98.2. He is 91% on room air. General description is an elderly male up in the chair in no distress. RESPIRATORY SYSTEM: Unlabored breathing with decreased intensity of breath sounds. No wheeze. HEART: S1, S2. Regular rate and rhythm. ABDOMEN: Soft. No tenderness. LABS: Hemoglobin is 12.7, white count 9.0, BUN of 10, creatinine 0.9. Bronchoscopy culture so far negative. Cytology was negative. DIAGNOSTIC IMPRESSION AND PLAN: Patient with large cavitating pneumonia with concern for possible malignancy rather than infectious etiology. Culture has been negative so far. Bronch culture will be followed. Continue with Unasyn and monitor his clinical course closely. MMODL / IJN: [id number] /
[2020-02-25 07:35] LABS: Glucose,Whole Blood 196 mg/dL (75-99)
[2020-02-25] MEDS: METOPROLOL TARTRATE 25 MG TAB PO SCH ×2 (08:05→21:07)
[2020-02-25] MEDS: FAMOTIDINE 20 MG TAB PO SCH (08:05)
[2020-02-25] MEDS: INSULIN ASPART (NovoLOG) 100 UNIT/ML VIAL SQ SCH ×4 (08:05→21:08)
[2020-02-25] MEDS: ISOSORBIDE MONONITRATE ER 30 MG TAB.ER.24H PO SCH (08:05)
[2020-02-25] MEDS: AMPICILLIN-SULBACTAM 3 GM in SODIUM CHLORIDE 0.9% 100 ML IVPB SCH (08:06)
[2020-02-25] MEDS: ALBUTEROL HFA INHALER INHALATION SCH ×4 (09:21→20:10)
[2020-02-25] MEDS: FLUCONAZOLE 100 MG TAB PO SCH (10:04)
[2020-02-25 12:01] LABS: Glucose,Whole Blood 158 mg/dL (75-99)
[2020-02-25 13:32] VITALS: BMI 35.2
--- NOTE | 2020-02-25 13:43 | P.PN ---
Subjective Progress Note Date: 02/25/20 Principal diagnosis: Right lower lobe infiltrate rule out malignancy This is a very pleasant 64-year-old gentleman who follows with Dr. Raygoza as his primary care provider. He has history of diabetes mellitus, hypertension, hyperlipidemia, obesity a former smoker, occasional marijuana use. He presented to the emergency room yesterday after developing worsening hemoptysis. He states he has been coughing up blood for approximately 3 weeks now. He states he has been very active and no other symptoms. He's been hunting, out on his ATV and doing physical work. No fever, chills or night sweats. No nausea, vomiting or diarrhea. Denies any weight loss. Denies any recent travel. Denies any recent pneumonias. He has been coughing up blood on nearly a daily basis. Computed tomography scan of the chest reveals a large cavitary lesion measuring 7.4 cm in the right lower lobe with a wall with intermediate thickness and extensive surrounding groundglass density. Suspicious for atypical fungal or mycobacterial infections. There is a second adjacent smaller area of 1.9 cm just below with the associated groundglass favoring infectious over neoplasm. There is a right hilar and subcarinal lymphadenopathy measuring up to 4.3 cm suspect reactive. Cannot exclude metastatic disease. There is a 6 mm left upper lobe nodule. A 2.3 cm right adrenal nodule, benign adrenal adenoma is suspected. He is seen today in consultation on the regular medical floor. He i s in TB isolation precautions. He is awake and alert in no acute distress. He denies any shortness of breath. Continues to cough up bloody sputum. Sample of which will be sent to the lab. Continues to deny any other symptoms. He remains afebrile. Hemodynamically stable. Maintain O2 saturations in the 90s on room air. White count 8.7. Hemoglobin 15.0. Sodium 136. Potassium 5.2. Creatinine 0.76. Influenza screen negative. CoVID 19 screen pending. Currently on vancomycin and Unasyn. The patient is seen today 02/20/2020 in follow-up on the regular medical floor. He remains awake and alert in no acute distress. Maintaining good O2 saturations in the low 90s on room air. He's afebrile. Hemodynamically stable. Still a small amounts of hemoptysis. AFB smear is negative. Sputum cultures pending. Covid 19 screen pending. He remains on bronchodilators, Unasyn, vancomycin. The patient is seen today 02/21/2020 in follow-up on the regular medical floor. He is up ambulating in his room. Awake and alert in no acute distress. He is afebrile. Maintaining O2 saturations in the 90s on room air. Hemodynamically stable. He does continue with hemoptysis. Sputum cultures are revealing Etta. White count 8.2. Hemoglobin 13.6. Creatinine 0.8. He remains on Unasyn, vancomycin, bronchodilators. Covid screen pending. On 02/22/2020 patient seen in follow-up, prior to his bronchoscopy. He is awake and alert, in no acute distress, he then room air, pulse ox 92%, he's been afebrile, hemodynamically stable, does get short of breath with exertion, continues with hemoptysis. No new labs today, blood pressure has been stable, remains on a combination of Unasyn, fluconazole, vancomycin, ID service is following. No complaints of chest pain. On 02/24/2020 patient seen in follow-up on medical surgical floor. Still coughing up bright red blood, although according to the patient that the amount seems to be have decreased. Otherwise patient is looking very comfortable, he is on room air, pulse ox is 93%, denies any chest pain, denies any shortness of breath, he is afebrile, respirations are nonlabored, he is not able to lay down flat in bed, but otherwise he is breathing comfortably. His his bronchial wash cytology was nondiagnostic of a mass lesion or malignancy. Remains on Unasyn and Diflucan for antibiotic coverage, ID service is following, he's had no fever or chills On 02/25/2020 patient seen in follow-up on medical surgical floor, still coughing up some blood, although she feels that the amount is decreasing, otherwise has been stable, vital signs are stable, room air pulse ox is 91-90%, vital signs have been stable, he is afebrile, yesterday's hemoglobin was 12.7, hemodynamic with his been stable, no complaints of chest pain. His bronchial lavage cultures have shown no growth, bronchial lavage cytology was nondiagnostic. The medical team is still trying to transfer the patient to a tertiary care facility, where told that there were no beds at [facility], and currently [facility] is reviewing patient's chart, and we're waiting to see if they have accepted the patient. Objective - Vital Signs Vital signs: Vital Signs Temp 97.4 F L 02/25/20 12:35 Pulse 71 02/25/20 12:35 Resp 19 02/25/20 12:35 BP 108/72 02/25/20 12:35 Pulse Ox 91 L 02/25/20 12:35 Intake & Output 02/24/20 02/25/20 02/25/20 18:59 06:59 18:59 Intake Total 240 950 Balance 240 950 Intake: Oral 240 950 Other: Voiding Method Toilet Toilet Urinal Urinal # Voids 2 2 # Bowel Movements 1 - Exam GENERAL EXAM: Alert, very pleasant, 64-year-old white male, on room air with pulse ox 93% comfortable in no apparent distress. HEAD: Normocephalic/atraumatic. EYES: Normal reaction of pupils, equal size. Conjunctiva pink, sclera white. NOSE: Clear with pink turbinates. THROAT: No erythema or exudates. NECK: No masses, no JVD, no thyroid enlargement, no adenopathy. CHEST: No chest wall deformity. Symmetrical expansion. LUNGS: Equal air entry with no crackles, wheeze, rhonchi or dullness. CVS: Regular rate and rhythm, normal S1 and S2, no gallops, no murmurs, no rubs ABDOMEN: Soft, nontender. No hepatosplenomegaly, normal bowel sounds, no guarding or rigidity. EXTREMITIES: No clubbing, no edema, no cyanosis, 2+ pulses and upper and lower extremities. MUSCULOSKELETAL: Muscle strength and tone normal. SPINE: No scoliosis or deformity SKIN: No rashes CENTRAL NERVOUS SYSTEM: Alert and oriented -3. No focal deficits, tone is normal in all 4 extremities. PSYCHIATRIC: Alert and oriented -3. Appropriate affect. Intact judgment and insight. - Labs CBC & Chem 7: 02/24/20 05:20 02/24/20 05:20 Labs: Abnormal Lab Results - Last 24 Hours (Table) 02/24/20 02/24/20 02/24/20 Range/Units 05: 16:57 20:29 POC Glucose (mg/dL) 146 H 214 H (75-99) mg/dL Hemoglobin A1c 8.6 H (4.0-6.0) % 02/25/20 02/25/20 Range/Units 07:33 11:57 POC Glucose (mg/dL) 196 H 158 H (75-99) mg/dL Hemoglobin A1c (4.0-6.0) % Microbiology - Last 24 Hours (Table) 02/22/20 13:43 Gram Stain - Final Bronchoalviolar Lavage - Right Bronchial Washings Culture - Final 02/18/20 16:08 Blood Culture - Final Blood No Growth after 144 hours Assessment and Plan Plan: Assessment: 1 Hemoptysis secondary to large cavitary lesion measuring 7.4 cm in the right lower lobe with a wall with an term immediate thickness and extensive surrounding groundglass density. Suspect atypical fungal or mycobacterial infection. There is a second adjacent smaller area of 1.9 cm cavitation just below the associated groundglass with infectious etiology favored over cavitary neoplasm. AFBs are negative. Cultures pending. Remains on Unasyn and vancomycin 2 Right hilar and subcarinal lymphadenopathy measuring up to 4.3 cm. Suspect reactive. Cannot completely exclude metastatic disease. Incidental 6 mm left upper lobe pulmonary nodule. 3 2.3 cm right adrenal nodule suspect benign adrenal adenoma versus metastasis. 4 History of significant 40 year smoking history however quit 4 years ago. Occa sional marijuana use. 5 Obesity 6 Coronary artery disease 7 Hyperlipidemia 8 Diabetes mellitus 9 Hypertension Plan: Discharge planning and social work are working on patient's transfer to [facility] for continued hemoptysis. Remains hemodynamically stable, bronch wash cytology was nondiagnostic. Aspirin and heparin remain on hold. I performed a history & physical examination of the patient and discussed their management with my nurse practitioner, Alina Heredia. I reviewed the nurse practitioner's note and agree with the documented findings and plan of care. Lung sounds are positive for clear breath sounds The findings and the impression was discussed with the patient. I attest to the documentation by the nurse practitioner. Time with Patient: Less than 30
--- NOTE | 2020-02-25 13:59 | P.PN ---
Subjective Progress Note Date: 02/25/20 HISTORY OF PRESENT ILLNESS 64-year-old mildly overweight male one of Dr. Levin patient with past medical history of coronary artery disease, diabetes, hypertension, COPD and m ild PAD who is a former smoker pack-a-day for over 40 years had a quit 4 years ago who has not been hospitalized in a while apparently developed to have significant and worsening shortness of breath for the last 3 weeks become much worse last few days patient developed to have hemoptysis with productive cough along with significant shortness of breath with minimum exertion symptoms become much worse associated with fever and chills. Patient has not been hospitalized recently or exposed to any infectious process including Covid 19 or tuberculosis. He presented to the emergency department with above symptoms was seen and evaluated surprisingly his white blood cell was normal blood sugar was mildly elevated chest x-ray showed infection with pneumonia on the right lower lobe, CT of the chest showed large cavitation of 7.4 cm of the right lower lobe surrounded with groundglass an infectious etiology is favored over cavitary neoplasm finding might be consistent with atypical fungal or mycobacterial infection also had right hilar and subcarinal lymphadenopathy measuring up to 4.3 cm probably reactive cannot exclude the possibility of metastasis, 6 mm left upper lobe pulmonary nodular, 2.3 cm right adrenal nodular. Patient was started on Unasyn along with vancomycin updraft treatment was start steroid as well consult pulmonary and prepare for possible bronchoscopy and further management might require bronchoscopy and biopsy for further diagnosis. 02/18: The patient is in TB isolation. We will add in Covid and influenza testing. Patient is followed by Dr. Rowe and patient may require bronchoscopy early next week. Sputum culture was sent this morning. Patient continues to have cough with sputum and hemoptysis. Breathing status is stable and improved from yesterday. He has been afebrile, heart rate 81, blood pressure 131/74, pulse ox 93% on room air. Patient is currently on Unasyn and vancomycin. Repeat chest x-ray reveals right lower lobe infiltrate and stable. 02/19: Patient is feeling much better today with the current IV antibiotic bronchoscopy was delayed until early next week patient is not coughing any blood today and his shortness of breath has improved. 02/20: Sputum culture came back with normal bernadette along with candidiasis, no sign of TB so far the patient still on isolation to is clear by pulmonary. Also patient will be hopefully going for bronchoscopy on Wednesday 02/21: Patient is scheduled today for bronchoscopy with Dr. Ann. He remains in isolation. He has been afebrile,HR 68, BP 131/71, pulse ox 92% on room air. Blood sugars have been running between 159 and 172. Patient continues to have sputum production. He had episode coughing through the night frequently but is better now. No hemoptysis. He is currently on Unasyn and fluconazole. 02/22: Yesterday, patient underwent bronchoscopy that did find blood in the distal trachea, right and left mainstem. Pathology and cultures are pending. Patient is also followed by infectious disease and covered with Unasyn and Diflucan. Patient is having hemoptysis today and apparently Dr. Ann requested the patient be transferred to [facility]. Patient is out of network for [facility] and casework supervisor is trying to find another facility for him. Patient has been afebrile, heart rate 90, blood pressure 117/75, pulse ox 92% on room air. 02/23: Patient continues to have hemoptysis but amount is decreasing. Hemoglobin is stable at 12.7, WBC 9, platelet count 268. Electrolytes and renal function normal. Blood sugars are elevated running between 182 and 215. Patient is slowly improving anticipate possible discharge by Saturday. Pathology is pending. 02/24: Patient continues to have hemoptysis. manager beauty continues to try and transfer patient to [facility]. Pathology came back nondiagnostic. Virus is negative. Pulse ox is 90-91% on room air. Covid 19 testing negative. He has been afebrile, heart rate 73, blood pressure 129/86. Repeat CBC ordered for tomorrow. REVIEW OF SYSTEMS CONSTITUTIONAL: Well-developed no acute respiratory distress. No fevers. No chills. EYES: No icterus sclerae, no conjunctivitis. EARS, NOSE, MOUTH, THROAT, and FACE: No sore throat, lymphadenopathy, carotid bruits or deformity. RESPIRATORY: Positive shortness of breath cough and wheezes, reports hemoptysis. CARDIOVASCULAR: Positive PND orthopnea palpitations. GASTROINTESTINAL: No Abd pain, Nausea or vomiting, no Diarrhea or constipation, No GI Bleed, no distention or masses. GENITOURINARY: Negative for Hematuria or UTI, no kidney stones. INTEGUMENT/BREAST: Negative for any muscular injury with mild osteoarthritis.. HEMATOLOGIC/LYMPHATIC: Negative for bleed or purpura. MUSCULOSKELTAL: Negative for Myalgia or arthralgia. NEURLOGICAL: No LOC, Sz or syncope, blurred vision dizziness or abnormality.. BEHAVIORAL/PSYCH: Negative. ENDOCRINE: Negative. PHYSICAL EXAMINATION General Appearance: Alert, cooperative, no distress, appears stated age. Patient is in no acute distress. He remains in isolation. Neck HEENT: Supple, no lymphadenopathy, no thyroid enlargement, no carotid bruits. Lungs: Decreased breath sound bilaterally with fine rhonchi positive crackles in the bases with mild expiratory wheezes. Chest Wall: Chest wall normal expansion with deep inspiration no tenderness and no deformity was found on exam, no costochondral pain or discomfort. Heart: Regular rate and rhythm, S1, S2 normal, no murmur, rub or gallop. Back: Symmetric, no curvature, ROM normal, no CVA tenderness. Abdomen: Soft, non-tender, bowel sounds active all four quadrants, no masses, no organomegaly. Extremities: Extremities normal, atraumatic, no cyanosis or edema. Pulses: 2+ and symmetric. Skin: Skin color, texture, tugor normal, no rashes or lesions. Neurologic: Alert oriented x3 cranial nerves II through XII intact, no motor deficit, no abnormal balance or gait. ASSESSMENT AND PLAN 1 severe dyspnea and shortness of breath with possible right lower lobe in filtrate or pneumonia, rule out infectious source, malignancy with hemoptysis: Continue Unasyn along with fluconazole. Patient is status post bronchoscopy. Pathology is pending. 2 large cavitary in the right lower lobe with the possibility of infection versus malignancy, further management including biopsy might be highly recommended. 3 possible lung metastasis in the imtchell-cranial area: Again could be lung cancer with metastasis which peaked stage III lung cancer. 4 CAD: Patient seen cardiology regular basis continue medical management. 5 type 2 diabetes: Remain on oral hypoglycemic agent continue Accu-Chek with sliding scales coverage for now diet controlled. 6 hyperlipidemia: Remain on atorvastatin 40 mg daily. 7 hypertension: Continue metoprolol titrate 25 mg twice a day. 8 electrolyte imbalance: Remain on with hydration found mild hyperkalemia. 9 DVT prophylaxis: Patient be on heparin subcutaneous. 10 GI prophylaxis: Patient be on Pepcid 20 mg daily. CODE STATUS: Full code. DISCHARGE PLAN Home by the end of this week or transfer to [facility] Impression and plan of care have been directed as dictated by the signing physician. Ciara Wallis nurse practitioner acting as scribe for signing physician. Objective - Vital Signs Vital signs: Vital Signs Temp 97.4 F L 02/25/20 12:35 Pulse 71 02/25/20 12:35 Resp 19 02/25/20 12:35 BP 108/72 02/25/20 12:35 Pulse Ox 91 L 02/25/20 12:35 Intake & Output 02/24/20 02/25/20 02/25/20 18:59 06:59 18:59 Intake Total 240 950 Balance 240 950 Weight 102.058 kg Intake: Oral 240 950 Other: Voiding Method Toilet Toilet Urinal Urinal # Voids 2 2 # Bowel Movements 1 - Labs CBC & Chem 7: 02/24/20 05:20 02/24/20 05:20 Labs: Abnormal Lab Results - Last 24 Hours (Table) 02/24/20 02/24/20 02/24/20 Range/Units 05:20 16:57 20:29 POC Glucose (mg/dL) 146 H 214 H (75-99) mg/dL Hemoglobin A1c 8.6 H (4.0-6.0) % 02/25/20 02/25/20 Range/Units 07:33 11:57 POC Glucose (mg/dL) 196 H 158 H (75-99) mg/dL Hemoglobin A1c (4.0-6.0) % Microbiology - Last 24 Hours (Table) 02/22/20 13:43 Gram Stain - Final Bronchoalviolar Lavage - Right Bronchial Washings Culture - Final 02/18/20 16:08 Blood Culture - Final Blood No Growth after 144 hours
--- NOTE | 2020-02-25 14:07 | P.DS ---
Providers Date of admission: 02/18/20 14:28 Expected date of discharge: 02/26/20 Attending physician: Warren Simeon Consults: 02/18/20 14:28 Consult Physician Routine Consulting Provider: Nicolás Chavez Consult Reason/Comments: roTB Do you want consulting provider notified?: Yes 02/18/20 14:30 Consult Physician Routine Consulting Provider: Richard Bacon Consult Reason/Comments: roTB Do you want consulting provider notified?: Yes Primary care physician: [facility] Course: HISTORY OF PRESENT ILLNESS 64-year-old mildly overweight male one of Dr. Levin patient with past medical history of coronary artery disease, diabetes, hypertension, COPD and mild PAD who is a former smoker pack-a-day for over 40 years had a quit 4 years ago who has not been hospitalized in a while apparently developed to have significant and worsening shortness of breath for the last 3 weeks become much worse last few days patient developed to have hemoptysis with productive cough along with significant shortness of breath with minimum exertion symptoms become much worse associated with fever and chills. Patient has not been hospitalized recently or exposed to any infectious process including Covid 19 or tuberculosis. He presented to the emergency department with above symptoms was seen and evaluated surprisingly his white blood cell was normal blood sugar was mildly elevated chest x-ray showed infection with pneumonia on the right lower lobe, CT of the chest showed large cavitation of 7.4 cm of the right lower lobe surrounded with groundglass an infectious etiology is favored over cavitary neoplasm finding might be consistent with atypical fungal or mycobacterial infection also had right hilar and subcarinal lymphadenopathy measuring up to 4.3 cm probably reactive cannot exclude the possibility of metastasis, 6 mm left upper lobe pulmonary nodular, 2.3 cm right adrenal nodular. Patient was started on Unasyn along with vancomycin updraft treatment was start steroid as well consult pulmonary and prepare for possible bronchoscopy and further management might require bronchoscopy and biopsy for further diagnosis. 02/18: The patient is in TB isolation. We will add in Covid and influenza testing. Patient is followed by Dr. Rowe and patient may require bronchoscopy early next week. Sputum culture was sent this morning. Patient continues to have cough with sputum and hemoptysis. Breathing status is stable and improved from yesterday. He has been afebrile, heart rate 81, blood pressure 131/74, pulse ox 93% on room air. Patient is currently on Unasyn and vancomycin. Repeat chest x-ray reveals right lower lobe infiltrate and stable. 02/19: Patient is feeling much better today with the current IV antibiotic bronchoscopy was delayed until early next week patient is not coughing any blood today and his shortness of breath has improved. 02/20: Sputum culture came back with normal bernadette along with candidiasis, no sign of TB so far the patient still on isolation to is clear by pulmonary. Also patient will be hopefully going for bronchoscopy on Wednesday 02/21: Patient is scheduled today for bronchoscopy with Dr. Ann. He remains in isolation. He has been afebrile,HR 68, BP 131/71, pulse ox 92% on room air. Blood sugars have been running between 159 and 172. Patient continues to have sputum production. He had episode coughing through the night frequently but is better now. No hemoptysis. He is currently on Unasyn and fluconazole. 02/22: Yesterday, patient underwent bronchoscopy that did find blood in the distal trachea, right and left mainstem. Pathology and cultures are pending. Patient is also followed by infectious disease and covered with Unasyn and Diflucan. Patient is having hemoptysis today and apparently Dr. Ann requested the patient be transferred to [facility]. Patient is out of network for [facility] and special education case manager is trying to find another facility for him. Patient has been afebrile, heart rate 90, blood pressure 117/75, pulse ox 92% on room air. 02/23: Patient continues to have hemoptysis but amount is decreasing. Hemoglobin is stable at 12.7, WBC 9, platelet count 268. Electrolytes and renal function normal. Blood sugars are elevated running between 182 and 215. Patient is slowly improving anticipate possible discharge by Saturday. Pathology is pending. 02/24: Patient continues to have hemoptysis. senior logistics manager continues to try and transfer patient to [facility]. Pathology came back nondiagnostic. Virus is negative. Pulse ox is 90-91% on room air. Covid 19 testing negative. He has been afebrile, heart rate 73, blood pressure 129/86. Repeat CBC ordered for tomorrow. 02/25: Patient has been accepted at [facility] with plan to transfer on Saturday morning. Patient was made nothing by mouth at midnight. He has been afebrile, heart rate 78, blood pressure 115/69, pulse ox 90% on 2 L nasal cannula. Blood sugars up and running between 178 and 250. Patient continues to have hemoptysis. Hemoglobin stable at 13. Physician to physician report has been completed. Patient will be transferred once all arrangements are completed. senior logistics manager is following closely. ASSESSMENT AND PLAN 1 severe dyspnea and shortness of breath and hemoptysis with possible right lower lobe infiltrate or pneumonia, rule out infectious source, malignancy 2 large cavitary in the right lower lobe with the possibility of infection versus malignancy 3 possible lung metastasis in the cavitary region 4 CAD 5 type 2 diabetes 6 hyperlipidemia 7 hypertension 8 electrolyte imbalance with mild hyperkalemia. DISCHARGE PLAN Transfer to [facility] on Saturday morning Impression and plan of care have been directed as dictated by the signing physician. Ciara Wallis nurse practitioner acting as scribe for signing physician. Patient Condition at Discharge: Stable Plan - Discharge Summary New Discharge Prescriptions: No Action Metoprolol Tartrate 25 mg PO BID Atorvastatin [Lipitor] 40 mg PO HS Aspirin EC [Ecotrin Low Dose] 81 mg PO DAILY Isosorbide Mononitrate ER [Imdur] 30 mg PO DAILY glyBURIDE/METFORMIN HCL [glyBURIDE/METFORMIN HCL 5-500 mg] 2 tab PO HS Discharge Medication List Aspirin EC [Ecotrin Low Dose] 81 mg PO DAILY 02/18/20 [History] Atorvastatin [Lipitor] 40 mg PO HS 02/18/20 [History] Isosorbide Mononitrate ER [Imdur] 30 mg PO DAILY 02/18/20 [History] Metoprolol Tartrate 25 mg PO BID 02/18/20 [History] glyBURIDE/METFORMIN HCL [glyBURIDE/METFORMIN HCL 5-500 mg] 2 tab PO HS 02/18/20 [History] Follow up Appointment(s)/Referral(s): Nicolás Chavez MD [STAFF PHYSICIAN] - 1 Week (after discharge from [facility]) Marcellus Raygoza DO [Primary Care Provider] - 1 Week (after discharge from [facility])
[2020-02-25 17:15] LABS: Glucose,Whole Blood 250 mg/dL (75-99)
--- NOTE | 2020-02-25 17:34 | PN ---
PROGRESS NOTE DATE OF SERVICE: 02/25/2020 REASON FOR FOLLOWUP: Cavitary pneumonia. INTERVAL HISTORY: The patient is currently afebrile. The patient is breathing comfortably. The patient denies having any chest pain or shortness of breath. Did have a cough and persistent hemoptysis, no worsening. No abdominal pain, no diarrhea. PHYSICAL EXAMINATION: Blood pressure is 108/72 with a pulse of 71, temperature is 97.4, he is 91% on room air. General description is an elderly male, up in the in chair, in no distress. RESPIRATORY SYSTEM: Unlabored breathing. Occasional wheeze. HEART: S1, S2. Regular rate and rhythm. ABDOMEN: Soft, no tenderness. LABS: No new labs have been obtained today, bronch culture has been negative so far. DIAGNOSTIC IMPRESSION AND PLAN: Patient with large cavitary pneumonia, status post bronchoscopy. Did have a lavage, no evidence of any malignancy. No transbronchial biopsies done with a possible transfer to tertiary care for repeat bronchoscopy with biopsy. On oral Augmentin for about a week to 10 days and close outpatient followup. MMODL / IJN: [id number] /
[2020-02-25 20:53] VITALS: PULSE 78; RESP 18
[2020-02-25 20:56] LABS: Glucose,Whole Blood 178 mg/dL (75-99)
[2020-02-25] MEDS: ATORVASTATIN 40 MG TAB PO SCH (21:08)
[2020-02-25] MEDS: AMOXIC-POT CLAV 875-125MG 1 EACH TAB PO SCH (21:08)
[2020-02-26 05:02] VITALS: BP 115/69; TEMP 99.3
[2020-02-26 07:28] LABS: Glucose,Whole Blood 185 mg/dL (75-99)
[2020-02-26 07:43] LABS: HCT 39.8 % (39.0-53.0); MCH 30.4 pg (25.0-35.0); MCHC 32.6 g/dL (31.0-37.0); MCV 93.3 fL (80.0-100.0); Platelet Count 318 k/uL (150-450); RBC 4.27 m/uL (4.30-5.90); RDW 13.9 % (11.5-15.5); WBC 10.2 k/uL (3.8-10.6)
[2020-02-26] MEDS: ALBUTEROL HFA INHALER INHALATION SCH ×2 (07:45→11:17)
[2020-02-26] MEDS: FLUCONAZOLE 100 MG TAB PO SCH (07:54)
[2020-02-26] MEDS: FAMOTIDINE 20 MG TAB PO SCH (07:54)
[2020-02-26] MEDS: ISOSORBIDE MONONITRATE ER 30 MG TAB.ER.24H PO SCH (07:54)
[2020-02-26] MEDS: INSULIN ASPART (NovoLOG) 100 UNIT/ML VIAL SQ SCH (07:54)
[2020-02-26] MEDS: METOPROLOL TARTRATE 25 MG TAB PO SCH (07:55)
[2020-02-26] MEDS: AMOXIC-POT CLAV 875-125MG 1 EACH TAB PO SCH (07:57)
[2020-02-26 11:35] LABS: Glucose,Whole Blood 153 mg/dL (75-99)
== END 2020-02-26 12:00 | disposition short-term general hospital (02) | DRG 194 ==
LOC: EC 11:39 → 6NMEDSUR 14:28
PROVIDERS: ADMIT Internal Medicine Geriatric Medicine; ATTEND Internal Medicine Geriatric Medicine
PROC: 0BDF8ZX Extraction of Right Lower Lung Lobe, Via Natural or Artificial Opening Endoscopic, Diagnostic (ICD-10-PCS; principal; 2020-02-22 07:50)
PROC: 0B9F8ZZ Drainage of Right Lower Lung Lobe, Via Natural or Artificial Opening Endoscopic (ICD-10-PCS; principal; 2020-02-22 07:50)
DX: J18.8 Other pneumonia, unspecified organism (principal); C34.31 Malignant neoplasm of lower lobe, right bronchus or lung; B37.89 Other sites of candidiasis; J44.0 Chronic obstructive pulmonary disease with (acute) lower respiratory infection; R04.2 Hemoptysis; Z87.891 Personal history of nicotine dependence; D35.00 Benign neoplasm of unspecified adrenal gland; E11.65 Type 2 diabetes mellitus with hyperglycemia; E66.9 Obesity, unspecified; Z68.35 Body mass index [BMI] 35.0-35.9, adult; E78.5 Hyperlipidemia, unspecified; E87.5 Hyperkalemia; I10 Essential (primary) hypertension; I25.10 Atherosclerotic heart disease of native coronary artery without angina pectoris; I25.2 Old myocardial infarction; J98.4 Other disorders of lung; Z20.828 Contact with and (suspected) exposure to other viral communicable diseases; Z79.82 Long term (current) use of aspirin; Z79.899 Other long term (current) drug therapy; Z80.1 Family history of malignant neoplasm of trachea, bronchus and lung; Z83.3 Family history of diabetes mellitus; Z82.49 Family history of ischemic heart disease and other diseases of the circulatory system; R59.0 Localized enlarged lymph nodes; R91.8 Other nonspecific abnormal finding of lung field; Z79.84 Long term (current) use of oral hypoglycemic drugs; E87.8 Other disorders of electrolyte and fluid balance, not elsewhere classified
CPT/HCPCS: 31623; 31624; 36415; 71045; 71046; 71260; 80048; 80053; 80202; 82565; 83036; 84145; 85025; 85027; 85652; 86140; 87040; 87070; 87102; 87116; 87205; 87206; 87252; 87496; 87498; 87502; 87529; 87634; 87798; 88104; 88108; 88305; 89050; 94640; 96361; 96365; 96366; 99285

== ENCOUNTER → 2020-03-08 | Outpatient (CLI) | payer MEDICARE ==
--- NOTE | 2020-03-09 06:58 | MR ---
EXAMINATION TYPE: MR brain wo/w con DATE OF EXAM: 03/08/2020 COMPARISON: CT brain May 03, 2008 HISTORY: Lung cancer TECHNIQUE: Multiplanar, multisequence images of the brain and brainstem is performed without and with IV contras t, utilizing 10 mL intravenous Gadavist . FINDINGS: Diffusion weighted images demonstrate no evidence of a recent infarct or other diffusion ab normality. There is no worrisome extra-axial fluid collection. There is mild diffuse ventricular and sulcal prominence. There is occasional tiny focus of T2 hyperintensity seen throughout the white mat ter bilaterally. Lesions are nonspecific in appearance and distribution. Midline structures demonstrate normal morphology. The craniocervical junction appears within normal limits. Post contrast images demonstrate no abnormal enhancement or suspicious enhancing masses. Sukh e wrap around artifact degradation noted making evaluation slightly suboptimal The dural venous sinus es appear patent. The visualized sinuses are clear and the globes are intact. IMPRESSION: Slightly suboptimal study but no suspicious enhancing masses identified to suggest metast atic disease to the brain. Mild diffuse age-related cerebral atrophy and mild to minimal chronic smal l vessel ischemic change appreciated.
== END | disposition home or self-care (01) ==
LOC: RADMRIMAIN 16:14
PROVIDERS: ATTEND Internal Medicine Hematology & Oncology
DX: G31.1 Senile degeneration of brain, not elsewhere classified (principal); I67.82 Cerebral ischemia; C34.31 Malignant neoplasm of lower lobe, right bronchus or lung
CPT/HCPCS: 70553; A9585

== ENCOUNTER → 2020-03-11 | Outpatient (CLI) | payer MEDICARE ==
--- NOTE | 2020-03-14 10:40 | PE ---
EXAMINATION TYPE: PET CT fusion skull to thigh DATE OF EXAM: 03/11/2020 COMPARISON: Chest CT February 18, 2020. HISTORY: Lung cancer, initial staging study. Diagnosed adenocarcinoma consistent with lung primary a nd FNA mediastinal lymph nodes March 02, 2020 TECHNIQUE: Following the intravenous administration of 10.13 mCi of F-18 FDG, whole body images are performed from the skull base to the midthigh. Images are reviewed on the computer in the coronal, a xial, and sagittal planes. Reconstructed rotating images are created on independent workstation and reviewed on the computer. A noncontrast CT is performed in conjunction with the PET scan. SCAN: Initial Scan FINDINGS: SKULL BASE AND NECK: No areas of suspicious hypermetabolic uptake. CHEST, MEDIASTINUM, AND HILAR REGION: Background mild underlying emphysematous change is redemonstrat ed. Corresponding to recent CT there is thick walled cavitary lesion in the right lower lobe measurin g partially 6.5 x 5.5 cm axial image 110. This lesion has surrounding groundglass opacity and reticul ation was some focal areas of consolidation now present inferior to the lesion. A second smaller 1.9 cm cavitary lesion redemonstrated axial image 118. There is hypermetabolic uptake along the periphery or in the wall. Max SUV is 4.84 posterior-inferior margin axial image 114 and 4.9 anterior superior margin axial image 95. There is additional abnormal hypermetabolic right hilar lymph node axial image 86 measuring 1.7 x 1.3 cm, max SUV is 5.27. Low dense enlarged subcarinal lesion measuring 4.5 x 2.6 cm axial image 96 redemonstrated but is amet abolic. Possible fluid density. Fairly stable 8 x 4 mm posterior left upper lobe nodule axial image 68 is ametabolic No additional areas of suspicious hypermetabolic uptake. ABDOMEN AND PELVIS: Mild uptake right deep gluteal muscle axial image 218 favored postinflammatory. Normal excretion. Low dense slightly nodular thickening to both adrenal glands with slightly more prominent 1.7 cm nodu lar thickening on the right, max SUV is 3.43. OSSEOUS STRUCTURES: No areas of suspicious hypermetabolic uptake. OTHER CT: Moderate to severe coronary artery calcification and/or stents. The liver is diffusely low-density consistent with fatty infiltration. Infrarenal AAA up to 5.3 cm-image 168 noted. No extension into common iliac artery branches. Some sca ttered right-sided pelvic phleboliths. Small sized fat-containing left inguinal hernia. IMPRESSION: Cavitary neoplasm with right hilar adenopathy. Possible right adrenal metastatic disease. Note is made of AAA measuring up to 5.3 cm.
== END | disposition home or self-care (01) ==
LOC: RADPETMAIN 07:33
PROVIDERS: ATTEND Internal Medicine Hematology & Oncology
DX: C34.31 Malignant neoplasm of lower lobe, right bronchus or lung (principal); R59.0 Localized enlarged lymph nodes; I71.4 Abdominal aortic aneurysm, without rupture; E11.9 Type 2 diabetes mellitus without complications
CPT/HCPCS: 78815; A9552

== ENCOUNTER → 2020-04-11 | Outpatient (CLI) | payer MEDICARE ==
--- NOTE | 2020-04-11 11:52 | US ---
EXAMINATION TYPE: US venous doppler duplex LE LT DATE OF EXAM: 04/11/2020 11:42 AM COMPARISON: NONE CLINICAL HISTORY: R60.0 Localized edema LLE. SIDE PERFORMED: Left TECHNIQUE: The lower extremity deep venous system is examined utilizing real time linear array sonog kareem with graded compression, doppler sonography and color-flow sonography. VESSELS IMAGED: Common Femoral Vein Deep Femoral Vein Greater Saphenous Vein * Femoral Vein Popliteal Vein Small Saphenous Vein * Proximal Calf Veins (* superficial vessels) Interstitial edema, technically difficult. Left Leg: Negative for DVT Grayscale, color doppler, spectral doppler imaging performed of the deep veins of the left lower ext remity. There is normal flow, compressibility, vascular waveforms. IMPRESSION: Suboptimal study but no ultrasound evidence for acute DVT in the left lower extremity.
== END | disposition home or self-care (01) ==
LOC: RADUSWWP 11:18
PROVIDERS: ATTEND Radiology Radiation Oncology
DX: R60.0 Localized edema (principal); C34.31 Malignant neoplasm of lower lobe, right bronchus or lung; C77.9 Secondary and unspecified malignant neoplasm of lymph node, unspecified

== ENCOUNTER 2020-04-13 08:33 | Inpatient (IN) | payer MEDICARE ==
[2020-04-13] MEDS ORDERED: SODIUM CHLORIDE 0.9% 1,000 ML IV STA ×2 (08:47→09:57)
--- NOTE | 2020-04-13 09:04 | ED ---
General Adult HPI - General Chief complaint: Weakness Stated complaint: SOB Time Seen by Provider: 04/13/20 08:38 Source: patient Mode of arrival: ambulatory Limitations: no limitations - History of Present Illness Initial comments: Dictation was produced using [employer] dictation software. please excuse any grammatical, word or spelling errors. This patient was cared for during a federal and state declared state of emergency secondary to Covid 19 Chief Complaint: 64-year-old male with recently diagnosed stage III lung cancer presents with dyspnea History of Present Illness: 64-year-old male he was recently diagnosed with lung cancer last month. Patient was admitted to this hospital for hemoptysis. He was found to have abnormal lung imaging and bronchoscopy. He was transferred to [facility] where further workup. The performed the biopsy and patient was diagnosed with stage III lung cancer. Patient has been home. He's been following up with Dr. Whittington and Dr. Woodward. He's been receiving chemo and radiation therapy. Patient states that over the last 48 hours his dyspnea had worsen. He was slightly dyspneic yesterday. He had a ultrasound performed on his bilateral lower extremities for evaluation of possible acute DVT. Patient states he has a cough. He feels like he has phlegm that he wants to cough up ho wever unsuccessful. Patient denies any fever, chills or night sweats. He does not have any pain complaints. Patient wears oxygen at home at 2-1/2 L The ROS documented in this emergency department record has been reviewed and confirmed by me. Those systems with pertinent positive or negative responses have been documented in the HPI. All other systems are other negative and/or noncontributory. PHYSICAL EXAM: General Impression: Alert and oriented x3, dyspneic HEENT: Normocephalic atraumatic, extra-ocular movements intact, pupils equal and reactive to light bilaterally, mucous membranes moist. Cardiovascular: Heart regular rate and rhythm Chest: 3 word sentences, diffuse crackles with auscultation to the lung Abdomen: abdomen soft, non-tender, non-distended, no organomegaly Musculoskeletal: Pulses present and equal in all extremities, no peripheral edema, no calf tenderness to palpation Motor: no focal deficits noted Neurological: CN II-XII grossly intact, no focal motor or sensory deficits noted Skin: Intact with no visualized rashes Psych: Normal affect and mood ED course: 64-year-old male recently diagnosed with lung cancer, currently undergoing chemo and radiation therapy presents today with dyspnea. Vital signs upon arrival shows respiratory rate of 18, heart rate of 120. Does appear to be labored. His blood pressures 82/62. Patient does appear to be dyspneic at bedside. Chart review was performed. Patient did have a venous Doppler study performed. It was a suboptimal study however no obvious DVT noted. Patient reports he has not had hemoptysis for 2 weeks. Does not take any anticoagulation medications. CT angios imaging studies were reviewed showing bilateral PEs, dilated right ventricle. EKG interpretation: Ventricular rate 119, sinus tachycardia,. 140, QRS 80, QTc 4:30. No RI prolongation, no QTC prolongation, no ST or T-wave changes noted. 9:58 AM: Case was discussed in detail with Dr. Ann. Dr. Ann does recall patient slightly. He does not recommend alteplase administration at this time. He does recommend contacting vascular surgery this patient may be a good candidate for EKOS therapy. He does however recommend heparin administration. 1005 a.m.: Case is discussed with Dr. Machado in detail. She states that patient is not a candidate for the EKOS therapy given his history of lung cancer. She does not recommend transferring patient at this time given his unstable vital signs. 10:10 AM: Case is rediscussed with Dr. Bird. He is notified Dr. Machado's recommendations. Patient be admitted to our intensive care unit. Dr. Ann recommends only heparin therapy at this time. Laboratory evaluation obtained. Hemoglobin stable at 12.1. Rest of CBC is unremarkable. Coag panel is unremarkable. D-dimer is 9.48, venous blood gas shows a bicarb of 20 through the pH of 7.36. An pCO2 of 42. Metabolic panel shows lactic acidosis of 2.8. Rest metabolic panel is unremarkable. Troponin is 0.399. Coronal virus is negative. Chest x-ray shows improved x-ray. CT radiology reads central bilateral large pulmonary emboli with right heart strain. - Related Data Home Medications Medication Instructions Recorded Confirmed Atorvastatin [Lipitor] 40 mg PO HS 02/18/20 04/13/20 Isosorbide Mononitrate ER [Imdur] 30 mg PO DAILY 02/18/20 04/13/20 Metoprolol Tartrate 25 mg PO BID 02/18/20 04/13/20 glyBURIDE/METFORMIN HCL 2 tab PO HS 02/18/20 04/13/20 [glyBURIDE/METFORMIN HCL 5-500 mg] Benzonatate [Tessalon Perles] 100 mg PO TID PRN 04/13/20 04/13/20 Dapagliflozin Propanediol [Farxiga] 10 mg PO DAILY 04/13/20 04/13/20 Omeprazole 20 mg PO AC-BRKFST 04/13/20 04/13/20 Ondansetron [Zofran] 4 mg PO Q6H PRN 04/13/20 04/13/20 lidocaine HCL [Lidocaine HCl 10 - 15 ml MM ACHS PRN 04/13/20 04/13/20 Viscous] Allergies Allergy/AdvReac Type Severity Reaction Status Date / Time No Known Allergies Allergy Verified 04/13/20 09:36 Review of Systems ROS Statement: Those systems with pertinent positive or pertinent negative responses have been documented in the HPI. ROS Other: All systems not noted in ROS Statement are negative. Past Medical History Past Medical History: Coronary Artery Disease (CAD), Cancer, Chest Pain / Angina, Hyperlipidemia, Myocardial Infarction (PA) Additional Past Medical History / Comment(s): [facility] [place] History of Any Multi-Drug Resistant Organisms: None Reported Past Surgical History: Heart Catheterization, Orthopedic Surgery Additional Past Surgical History / Comment(s): lung biopsy. Past Psychological History: No Psychological Hx Reported Smoking Status: Former smoker Past Alcohol Use History: Occasional Past Drug Use History: Marijuana General Exam Limitations: no limitations Course Vital Signs 04/13/20 04/13/20 04/13/20 08:37 09:04 09:24 Temperature 97.8 F Pulse Rate 120 H 116 H 113 H Respiratory 18 22 24 Rate Blood Pressure 82/62 94/42 89/63 O2 Sat by Pulse 96 96 100 Oximetry 04/13/20 09:56 Temperature Pulse Rate 110 H Respiratory 24 Rate Blood Pressure 80/60 O2 Sat by Pulse 98 Oximetry Medical Decision Making - Lab Data Result diagrams: 04/13/20 09:03 04/13/20 09:03 Lab Results 04/13/20 04/13/20 04/13/20 Range/Units 09:03 09:03 09:03 WBC 4.7 (3.8-10.6) k/uL RBC 4.17 L (4.30-5.90) m/uL Hgb 12.1 L (13.0-17.5) gm/dL Hct 37.5 L (39.0-53.0) % MCV 90.0 (80.0-100.0) fL MCH 29.0 (25.0-35.0) pg MCHC 32.2 (31.0-37.0) g/dL RDW 19.0 H (11.5-15.5) % Plt Count 172 (150-450) k/uL MPV 8.0 Neutrophils % 79 % Lymphocytes % 8 % Monocytes % 9 % Eosinophils % 1 % Basophils % 1 % Neutrophils # 3.7 (1.3-7.7) k/uL Lymphocytes # 0.4 L (1.0-4.8) k/uL Monocytes # 0.4 (0-1.0) k/uL Eosinophils # 0.1 (0-0.7) k/uL Basophils # 0.0 (0-0.2) k/uL Hypochromasia Slight Anisocytosis Slight PT 10.4 (9.0-12.0) sec INR 1.0 (<1.2) APTT 22.9 (22.0-30.0) sec D-Dimer 9.48 H (<0.60) mg/L FEU VBG pH (7.31-7.41) VBG pCO2 (37-51) mmHg VBG HCO3 (24-28) mmol/L Sodium 136 L (137-145) mmol/L Potassium 4.9 (3.5-5.1) mmol/L Chloride 103 (98-107) mmol/L Carbon Dioxide 24 (22-30) mmol/L Anion Gap 9 mmol/L BUN 15 (9-20) mg/dL Creatinine 0.69 (0.66-1.25) mg/dL Est GFR (CKD-EPI)AfAm >90 (>60 ml/min/1.73 sqM) Est GFR (CKD-EPI)NonAf >90 (>60 ml/min/1.73 sqM) Glucose 217 H (74-99) mg/dL Plasma Lactic Acid Luis Miguel (0.7-2.0) mmol/L Calcium 9.2 (8.4-10.2) mg/dL Magnesium 1.7 (1.6-2.3) mg/dL Total Bilirubin 1.4 H (0.2-1.3) mg/dL AST 41 (17-59) U/L ALT 23 (4-49) U/L Alkaline Phosphatase 115 (38-126) U/L Creatine Kinase 61 (55-170) U/L Troponin I (0.000-0.034) ng/mL NT-Pro-B Natriuret Pep pg/mL Total Protein 6.9 (6.3-8.2) g/dL Albumin 3.6 (3.5-5.0) g/dL Coronavirus (PCR) (Not Detectd) 04/13/20 04/13/20 04/13/20 Range/Units 09:03 09:03 09:03 WBC (3.8-10.6) k/uL RBC (4.30-5.90) m/uL Hgb (13.0-17.5) gm/dL Hct (39.0-53.0) % MCV (80.0-100.0) fL MCH (25.0-35.0) pg MCHC (31.0-37.0) g/dL RDW (11.5-15.5) % Plt Count (150-450) k/uL MPV Neutrophils % % Lymphocytes % % Monocytes % % Eosinophils % % Basophils % % Neutrophils # (1.3-7.7) k/uL Lymphocytes # (1.0-4.8) k/uL Monocytes # (0-1.0) k/uL Eosinophils # (0-0.7) k/uL Basophils # (0-0.2) k/uL Hypochromasia Anisocytosis PT (9.0-12.0) sec INR (<1.2) APTT (22.0-30.0) sec D-Dimer (<0.60) mg/L FEU VBG pH (7.31-7.41) VBG pCO2 (37-51) mmHg VBG HCO3 (24-28) mmol/L Sodium (137-145) mmol/L Potassium (3.5-5.1) mmol/L Chloride (98-107) mmol/L Carbon Dioxide (22-30) mmol/L Anion Gap mmol/L BUN (9-20) mg/dL Creatinine (0.66-1.25) mg/dL Est GFR (CKD-EPI)AfAm (>60 ml/min/1.73 sqM) Est GFR (CKD-EPI)NonAf (>60 ml/min/1.73 sqM) Glucose (74-99) mg/dL Plasma Lactic Acid Luis Miguel (0.7-2.0) mmol/L Calcium (8.4-10.2) mg/dL Magnesium (1.6-2.3) mg/dL Total Bilirubin (0.2-1.3) mg/dL AST (17-59) U/L ALT (4-49) U/L Alkaline Phosphatase (38-126) U/L Creatine Kinase (55-170) U/L Troponin I 0.399 H* (0.000-0.034) ng/mL NT-Pro-B Natriuret Pep 1160 pg/mL Total Protein (6.3-8.2) g/dL Albumin (3.5-5.0) g/dL Coronavirus (PCR) Not Detected (Not Detectd) 04/13/20 04/13/20 Range/Units 09:03 09:03 WBC (3.8-10.6) k/uL RBC (4.30-5.90) m/uL Hgb (13.0-17.5) gm/dL Hct (39.0-53.0) % MCV (80.0-100.0) fL MCH (25.0-35.0) pg MCHC (31.0-37.0) g/dL RDW (11.5-15.5) % Plt Count (150-450) k/uL MPV Neutrophils % % Lymphocytes % % Monocytes % % Eosinophils % % Basophils % % Neutrophils # (1.3-7.7) k/uL Lymphocytes # (1.0-4.8) k/uL Monocytes # (0-1.0) k/uL Eosinophils # (0-0.7) k/uL Basophils # (0-0.2) k/uL Hypochromasia Anisocytosis PT (9.0-12.0) sec INR (<1.2) APTT (22.0-30.0) sec D-Dimer (<0.60) mg/L FEU VBG pH 7.36 (7.31-7.41) VBG pCO2 42 (37-51) mmHg VBG HCO3 23 L (24-28) mmol/L Sodium (137-145) mmol/L Potassium (3.5-5.1) mmol/L Chloride (98-107) mmol/L Carbon Dioxide (22-30) mmol/L Anion Gap mmol/L BUN (9-20) mg/dL Creatinine (0.66-1.25) mg/dL Est GFR (CKD-EPI)AfAm (>60 ml/min/1.73 sqM) Est GFR (CKD-EPI)NonAf (>60 ml/min/1.73 sqM) Glucose (74-99) mg/dL Plasma Lactic Acid Luis Miguel 2.8 H* (0.7-2.0) mmol/L Calcium (8.4-10.2) mg/dL Magnesium (1.6-2.3) mg/dL Total Bilirubin (0.2-1.3) mg/dL AST (17-59) U/L ALT (4-49) U/L Alkaline Phosphatase (38-126) U/L Creatine Kinase (55-170) U/L Troponin I (0.000-0.034) ng/mL NT-Pro-B Natriuret Pep pg/mL Total Protein (6.3-8.2) g/dL Albumin (3.5-5.0) g/dL Coronavirus (PCR) (Not Detectd) Critical Care Time Critical Care Time: Yes Total Critical Care Time: 33 Disposition Clinical Impression: Pulmonary embolism Disposition: ADMITTED IP TO THIS [facility] Condition: Critical Referrals: Marcellus Raygoza DO [Primary Care Provider] - 1-2 days Decision Time: 10:18
[2020-04-13 09:20] LABS: VBG PH 7.36 (7.31-7.41)
[2020-04-13 09:23] LABS: Anisocytosis Slight; Basophils % (A) 1 %; Eosinophils # (A) 0.1 k/uL (0-0.7); Eosinophils % (A) 1 %; HCT 37.5 % (39.0-53.0); HGB 12.1 gm/dL (13.0-17.5); Hypochromasia Slight; Lymphocytes # (A) 0.4 k/uL (1.0-4.8); Lymphocytes % (A) 8 %; MCHC 32.2 g/dL (31.0-37.0); Monocytes # (A) 0.4 k/uL (0-1.0); Monocytes % (A) 9 %; Neutrophils # (A) 3.7 k/uL (1.3-7.7); Neutrophils % (A) 79 %; Platelet Count 172 k/uL (150-450); RBC 4.17 m/uL (4.30-5.90); WBC 4.7 k/uL (3.8-10.6)
--- NOTE | 2020-04-13 09:28 | XR ---
EXAMINATION TYPE: XR chest 1V DATE OF EXAM: 04/13/2020 COMPARISON: 02/21/2020 and 03/11/2020 HISTORY: 64 year-old male shortness of breath, dyspnea TECHNIQUE: Single frontal view of the chest is obtained. FINDINGS: Redemonstrated cavitary lesion within the right base there is surrounding groundglass opacity persist s. The cavity may be larger in size but with decreased soft tissue thickening. Prominent epicardial f at pad at the left base. No progressive opacity as compared to 02/21/2020. IMPRESSION: Known right basilar cavitary neoplasm with associated groundglass in the right lower lung as seen on the 03/11/2020 PET/CT. There may be decreasing soft tissue component to the cavity.
[2020-04-13 09:32] LABS: ALT 23 U/L (4-49); African American GFR (CKD) >90 (>60 ml/min/1.73 sqM); Albumin 3.6 g/dL (3.5-5.0); Anion Gap 9 mmol/L; Blood Urea Nitrogen 15 mg/dL (9-20); Calcium 9.2 mg/dL (8.4-10.2); Carbon Dioxide 24 mmol/L (22-30); Chloride 103 mmol/L (98-107); Creatine Kinase 61 U/L (55-170); Glucose 217 mg/dL (74-99); Non-African American GFR(CKD) >90 (>60 ml/min/1.73 sqM); Sodium 136 mmol/L (137-145); Total Bilirubin 1.4 mg/dL (0.2-1.3); Total Protein 6.9 g/dL (6.3-8.2)
[2020-04-13 09:34] LABS: AST 41 U/L (17-59); Alkaline Phosphatase 115 U/L (38-126); Magnesium 1.7 mg/dL (1.6-2.3); Potassium 4.9 mmol/L (3.5-5.1)
[2020-04-13 09:44] LABS: Partial Thromboplastin Time 22.9 sec (22.0-30.0); Prothrombin Time 10.4 sec (9.0-12.0)
[2020-04-13 09:49] LABS: D-Dimer 9.48 mg/L FEU (<0.60)
[2020-04-13] MEDS ORDERED: HEPARIN SODIUM,PORCINE 5,000 UNIT/ML 1 ML VIAL IV PRN (10:00)
[2020-04-13] MEDS ORDERED: HEPARIN SODIUM,PORCINE 10,000 UNIT/ML 1 ML VIAL IV ONE (10:00)
--- NOTE | 2020-04-13 10:02 | CT ---
CT CHEST FOR PULMONARY EMBOLISM. EXAMINATION TYPE: CT angio chest DATE OF EXAM: 04/13/2020 INDICATION: short of breath CT DLP: 520.8 mGycm, Automated exposure control for dose reduction was used. CONTRAST: Patient injected with 100 mL of Isovue 370. COMPARISON: CT chest 02/18/2020 TECHNIQUE: CT of the chest is performed on a spiral scan at 2 mm thick sections. Study is performed with intravenous contrast timed for evaluation for pulmonary embolism. This will limit additional po rtions of the evaluation. 3-D MIP images reconstructed by the technologist are reviewed on the compu ter in the coronal and sagittal planes. FINDINGS: There are large bilateral pulmonary emboli within the second branches from the main pulmonary arterie s. No saddle embolism is evident. There is some right heart strain with pulmonary hypertension, promi nent right ventricle and reflux into the inferior vena cava within the abdomen. No mediastinal or hilar adenopathy enlarged by CT criteria is evident. The ascending aorta diameter at the level of the main pulmonary artery is 3.1 cm. The main pulmonary artery diameter at the bifur cation is 3.2 cm. There is a right lower lobe infiltrate present. Cavitation is within the posterior right lung base. Limited CT sections are obtained through the upper abdomen which are unremarkable. IMPRESSIONS: 1. Central bilateral large pulmonary emboli with right heart strain. Report was called to the emergen cy room physician Dr Mcduffie by Dr. Morgan by telephone 1000 hours 04/13/2020. 2. Right lower lobe infiltrate.
[2020-04-13] MEDS: HEPARIN SOD,PORK IN 0.45% NACL 25,000 UNIT in 0.45% NACL 1 250ML.BAG IV SCH (10:07)
[2020-04-13] MEDS ORDERED: NALOXONE 0.4 MG/ML 1 ML VIAL IV PRN (10:11)
[2020-04-13] MEDS: SODIUM CHLORIDE 0.9% 1,000 ML IV SCH ×2 (10:36→19:52)
[2020-04-13 11:17] LABS: Glucose,Whole Blood 167 mg/dL (75-99)
[2020-04-13] MEDS ORDERED: IPRATROPIUM-ALBUTEROL 3 ML NEB INHALATION PRN (11:39)
[2020-04-13] MEDS: NOREPINEPHRINE 4 MG in SODIUM CHLORIDE 0.9% 250 ML IV SCH (12:32)
--- NOTE | 2020-04-13 12:34 | CONS ---
CONSULTATION PULMONARY/CRITICAL CARE CONSULTATION: DATE OF CONSULTATION: April 13, 2020. REASON FOR CONSULTATION: Pulmonary embolism, shortness of breath, chest heaviness. A 64-year-old male who had recent diagnosis of stage IIIB lung cancer and maybe even stage IV lung cancer, who apparently was recently diagnosed with that disease. He comes in to the hospital now complaining of heaviness in his chest and shortness of breath. The patient was here at [facility] between February 17 and February 25. He was seen by our group on February 18 in consultation. On February 21, I took him to the endoscopy suite and we did washes and brushes to the right lower lobe lesion. He has got a large cavitary lesion in the right lower lobe. Our sampling was negative at that time. Both cytologically and microbiologically. Anyway, because of ongoing hemoptysis, he was transferred to [facility] for bronchial arteriography. Apparently that was attempted there and it was on successful. He was there he states for almost 2 weeks. They did do a biopsy there and they did discover that he had adenocarcinoma and they staged him a stage IIIB. Anyway, the patient subsequent to that then was referred back to this institution where he has had radiation treatment with Dr. Keith Whittington and chemotherapy maybe 2 or [address] Woodward. He was not real specific in terms of having radiation treatments or chemo treatments he has received. He presented to the emergency room today with shortness of breath and chest heaviness. He was worked up there by Dr. Mcduffie. He was found to have bilateral large pulmonary emboli with right heart strain. Dr. Mcduffie called me on the phone. I talked about the possibility of transferring him to [facility] for use of EKOS. He ended up calling Dr. Machado who thought maybe EKOS because of his lung cancer would not be a great idea. We also talked about the possibility of tPA. We felt like the tPA was probably not appropriate given his recent episode of severe and significant hemoptysis. Currently, he is just on IV heparin. He is on saline at 120/mL an hour. He is on BiPAP at 10/5 and 50%. We will start him on some low dose of norepinephrine for blood pressure support. I did finally speak to Dr. Machado again who is planning on maybe taking him to the operating room for suction removal of clot. MEDICATIONS: Medications are reviewed. The patient is on Lipitor, Imdur, metoprolol, glyburide, Tessalon Perles, Farxiga, omeprazole, Zofran, and lidocaine viscous. ALLERGIES: Denied. MEDICAL HISTORY: Medical history includes CAD, lung cancer, stage IIIB and maybe stage IV, chest pain, hyperlipidemia, previous myocardial infarction. SURGICAL HISTORY: Surgical history includes heart catheterization, orthopedic procedures, bronchoscopy with BAL and lung biopsy I suspect a bronchoscopy with transbronchial biopsy, and possible bronchial embolization. SOCIAL HISTORY: Positive for previous tobacco use. He drinks occasionally. He does use marijuana. FAMILY HISTORY: Noncontributory. REVIEW OF SYSTEMS: CONSTITUTIONAL: Negative . NEUROLOGIC: Negative. HEENT: Negative. CARDIOVASCULAR: Chest heaviness. PULMONARY: Shortness of breath. GI: Negative. : Negative. RHEUMATOLOGIC: Negative. IMMUNOLOGIC: Negative. ENDOCRINOLOGIC: Negative. DERMATOLOGIC: Negative. He does also mention that he had some numbness in his left leg and toes. PHYSICAL EXAMINATION: VITAL SIGNS: Current vital signs are reviewed. His temperature is 97.7, heart rate 100, respiratory rate about 15-18 breaths per minute. Blood pressure is about 90 systolic. Saturations are 98% on BiPAP. GENERAL: He appears in no acute distress. HEENT: Examination is grossly unremarkable. NECK: Supple. Full range of motion. No adenopathy. Neck veins are flat. CARDIOVASCULAR: Examination reveals mild tachycardia. Heart rate right around 100 and 103. S1, S2 normal. Heart sounds are distant. LUNGS: Reveal diffuse coarse rhonchi. No wheezes. No crackles. Breath sounds equal. ABDOMEN: Soft. Bowel sounds are heard. EXTREMITIES: Are intact. Minimal edema. SKIN: Without rash. NEUROLOGIC: Examination is nonfocal. LABS: Labs are reviewed. White count 4.7, hemoglobin 12.1, hematocrit 37.5, platelet count 172,000. PT, INR, PTT normal. D-dimer 9.48. Venous blood gases show pCO2 of 42 and a pH of 7.36. Sodium 136, potassium 4.9, chloride 103, CO2 of 24. Anion gap is 9. BUN and creatinine were 15 and 0.69. Lactic acid initially was 2.8, repeat was not done. Glucose 217. Bilirubin 1.4. Troponin 0.399. N-terminal proBNP of 1160. COVID test negative. Microbiology is negative. Chest x-ray shows the disease in the right lower lobe, this is a thick-walled cavity. CT scan is reviewed. It shows bilateral large pulmonary emboli with right heart strain. EKG shows sinus tachycardia. CURRENT MEDICATIONS: Current medications include saline at 120/mL an hour and the IV heparin. Other medications are none. ASSESSMENT: 1. Bilateral pulmonary emboli with right heart strain. 2. Recent diagnosis of lung cancer, adenocarcinoma, stage IIIB and possibly stage IV, with recent biopsy done at [facility]. 3. Recent initiation of both chemotherapy and radiation therapy for adenocarcinoma of the lung. 4. Hemoptysis, requiring transfer to [facility] with failed bronchial arteriography. 5. Previous history of tobacco use. 6. Prior bronchoscopy with BAL, nondiagnostic. 7. History of coronary artery disease. 8. Angina pectoris. 9. Hyperlipidemia. 10.Prior history of myocardial infarction. 11.Status post heart catheterization. 12.Diabetes mellitus. 13.Obesity. PLAN: The patient is on IV heparin. He was admitted to the ICU. We will start him on some low-dose norepinephrine for blood pressure. In addition, we spoke to Dr. Machado. She is planning to do a suction procedure to see if she cannot relieve clot burden. TPA was thought not to be a good idea at this time given his prior history of severe hemoptysis. Additional suggestions and recommendations are forthcoming. It appears on his PET scan that he has an abnormality in the right adrenal gland which might relate to metastatic disease, make him actually stage IV non-small cell lung cancer rather than stage IIIB non-small cell lung cancer. Additional recommendations and suggestions are forthcoming. Prognosis is guarded. MMODL / IJN: [id number] /
--- NOTE | 2020-04-13 13:11 | P.GSCN ---
History of Present Illness Consult date: 04/13/20 History of present illness: Tamela is a 64-year-old male with a significant past medical history of recently diagnosed stage IIIB lung cancer, possibly even stage IV. He was previously admitted to this hospital with findings of a cavitary lesion in his lung in the right lower lobe and subsequently underwent biopsy. At that time he was having continued significant, hemoptysis. He was started on chemo and radiation which seemed to help. He presented to the ER early today with significant increased shortness of breath and chest heaviness. He also states that he's had significant weakness of his left leg that he has previously had a pinched nerve. This is been going on for the past day. On workup and evaluation in the ER he was found to have significant bilateral pulmonary emboli with evidence of right heart strain on computed tomography scan with reflux into the vena cava as well as right heart dilatation. He is also been hypotensive in the ER. Initially conversations were had with Dr. Mcduffie as well as Dr. Ann we are currently unable to perfor m pulmonary catheter directed thrombolytics here via [facility] at this time and it was felt he was too unstable for transfer given his need for pressor support. We further discussed the majority of TPA and I believe that given his recent severe and significant hemoptysis he would be at greater risk from this. He is on IV heparin at the time and we finally discussed going forward with a pulmonary suction thrombectomy to help decrease the clot burden. Risks and benefits were discussed with the patient as well as his over the phone who seemingly understood and are willing to proceed as such. Of note he also underwent a left lower extremity ultrasound due to this weakness and was found to not have any evidence of blood clot Past Medical History Past Medical History: Coronary Artery Disease (CAD), Cancer, Chest Pain / Angina, Hyperlipidemia, Myocardial Infarction ([place]) Additional Past Medical History / Comment(s): [facility] [place] Last Myocardial Infarction Date:: unknown History of Any Multi-Drug Resistant Organisms: None Reported Past Surgical History: Heart Catheterization, Orthopedic Surgery Additional Past Surgical History / Comment(s): lung biopsy. Past Psychological History: No Psychological Hx Reported Smoking Status: Former smoker Past Alcohol Use History: Occasional Past Drug Use History: Marijuana Medications and Allergies Home Medications Medication Instructions Recorded Confirmed Type Atorvastatin [Lipitor] 40 mg PO HS 02/18/20 04/13/20 History Isosorbide Mononitrate ER [Imdur] 30 mg PO DAILY 02/18/20 04/13/20 History Metoprolol Tartrate 25 mg PO BID 02/18/20 04/13/20 History glyBURIDE/METFORMIN HCL 2 tab PO HS 02/18/20 04/13/20 History [glyBURIDE/METFORMIN HCL 5-500 mg] Benzonatate [Tessalon Perles] 100 mg PO TID PRN 04/13/20 04/13/20 History Dapagliflozin Propanediol [Farxiga] 10 mg PO DAILY 04/13/20 04/13/20 History Omeprazole 20 mg PO AC-BRKFST 04/13/20 04/13/20 History Ondansetron [Zofran] 4 mg PO Q6H PRN 04/13/20 04/13/20 History lidocaine HCL [Lidocaine HCl 10 - 15 ml MM ACHS PRN 04/13/20 04/13/20 History Viscous] Allergies Allergy/AdvReac Type Severity Reaction Status Date / Time No Known Allergies Allergy Verified 04/13/20 09:36 Surgical - Exam Vital Signs Temp Pulse Resp BP Pulse Ox 97.8 F 120 H 18 82/62 96 04/13/20 08:37 04/13/20 08:37 04/13/20 08:37 04/13/20 08:37 04/13/20 08:37 Gen. is a pleasant and cooperative male in moderate respiratory distress. HEENT is normocephalic, atraumatic, extraocular motion intact. Wearing a BiPAP mask. Neck is supple. Trachea is midline. Heart is tachycardic. Lungs decreased but clear. Abdomen is soft obese and nontender. Extremity show no clubbing, cy anosis or edema. He has palpable radial and femoral pulses bilaterally. Triphasic DP and PT signals bilaterally. Decreased left lower extremity motor, inability to dorsal or plantar flex. Decreased sensation of the left lower extremity. Normal mood and affect. Cranial nerves II through XII otherwise grossly intact Results CT PE is reviewed. Significant bilateral pulmonary artery thrombus with dilated right heart and reflux of contrast. - Labs 04/13/20 09:03 04/13/20 09:03 Abnormal Lab Results - Last 24 Hours (Table) 04/13/20 04/13/20 04/13/20 Range/Units 09:03 09:03 09:03 RBC 4.17 L (4.30-5.90) m/uL Hgb 12.1 L (13.0-17.5) gm/dL Hct 37.5 L (39.0-53.0) % RDW 19.0 H (11.5-15.5) % Lymphocytes # 0.4 L (1.0-4.8) k/uL D-Dimer 9.48 H (<0.60) mg/L FEU VBG HCO3 (24-28) mmol/L Sodium 136 L (137-145) mmol/L Glucose 217 H (74-99) mg/dL POC Glucose (mg/dL) (75-99) mg/dL Plasma Lactic Acid Luis Miguel (0.7-2.0) mmol/L Total Bilirubin 1.4 H (0.2-1.3) mg/dL Troponin I (0.000-0.034) ng/mL 04/13/20 04/13/20 04/13/20 Range/Units 09:03 09:03 09:03 RBC (4.30-5.90) m/uL Hgb (13.0-17.5) gm/dL Hct (39.0-53.0) % RDW (11.5-15.5) % Lymphocytes # (1.0-4.8) k/uL D-Dimer (<0.60) mg/L FEU VBG HCO3 23 L (24-28) mmol/L Sodium (137-145) mmol/L Glucose (74-99) mg/dL POC Glucose (mg/dL) (75-99) mg/dL Plasma Lactic Acid Luis Miguel 2.8 H* (0.7-2.0) mmol/L Total Bilirubin (0.2-1.3) mg/dL Troponin I 0.399 H* (0.000-0.034) ng/mL 04/13/20 Range/Units 11:05 RBC (4.30-5.90) m/uL Hgb (13.0-17.5) gm/dL Hct (39.0-53.0) % RDW (11.5-15.5) % Lymphocytes # (1.0-4.8) k/uL D-Dimer (<0.60) mg/L FEU VBG HCO3 (24-28) mmol/L Sodium (137-145) mmol/L Glucose (74-99) mg/dL POC Glucose (mg/dL) 167 H (75-99) mg/dL Plasma Lactic Acid Luis Miguel (0.7-2.0) mmol/L Total Bilirubin (0.2-1.3) mg/dL Troponin I (0.000-0.034) ng/mL Diabetes panel 04/13/20 Range/Units 09:03 Sodium 136 L (137-145) mmol/L Potassium 4.9 (3.5-5.1) mmol/L Chloride 103 (98-107) mmol/L Carbon Dioxide 24 (22-30) mmol/L BUN 15 (9-20) mg/dL Creatinine 0.69 (0.66-1.25) mg/dL Glucose 217 H (74-99) mg/dL Calcium 9.2 (8.4-10.2) mg/dL AST 41 (17-59) U/L ALT 23 (4-49) U/L Alkaline Phosphatase 115 (38-126) U/L Total Protein 6.9 (6.3-8.2) g/dL Albumin 3.6 (3.5-5.0) g/dL Calcium panel 04/13/20 Range/Units 09:03 Calcium 9.2 (8.4-10.2) mg/dL Albumin 3.6 (3.5-5.0) g/dL Pituitary panel 04/13/20 Range/Units 09:03 Sodium 136 L (137-145) mmol/L Potassium 4.9 (3.5-5.1) mmol/L Chloride 103 (98-107) mmol/L Carbon Dioxide 24 (22-30) mmol/L BUN 15 (9-20) mg/dL Creatinine 0.69 (0.66-1.25) mg/dL Glucose 217 H (74-99) mg/dL Calcium 9.2 (8.4-10.2) mg/dL Adrenal panel 04/13/20 Range/Units 09:03 Sodium 136 L (137-145) mmol/L Potassium 4.9 (3.5-5.1) mmol/L Chloride 103 (98-107) mmol/L Carbon Dioxide 24 (22-30) mmol/L BUN 15 (9-20) mg/dL Creatinine 0.69 (0.66-1.25) mg/dL Glucose 217 H (74-99) mg/dL Calcium 9.2 (8.4-10.2) mg/dL Total Bilirubin 1.4 H (0.2-1.3) mg/dL AST 41 (17-59) U/L ALT 23 (4-49) U/L Alkaline Phosphatase 115 (38-126) U/L Total Protein 6.9 (6.3-8.2) g/dL Albumin 3.6 (3.5-5.0) g/dL Assessment and Plan Assessment: Massive pulmonary embolism, currently on pressor support Stage IIIB lung cancer, possibly stage IV Left lower extremity weakness Plan: At this time plan to take the patient to the [facility] for suction thrombectomy. Risks and benefits were discussed including but not limited to bleeding, perfo ration, cardiopulmonary collapse. He seemingly understands all these risks and is willing to proceed. Same discussion was had with his over the telephone. Would recommend further workup and evaluation for possible nerve impingement of the left lower extremity, no evidence of vascular arterial compromise. Obtain new bilateral lower extremity venous duplex to evaluate for DVT.
[2020-04-13] MEDS: IPRATROPIUM-ALBUTEROL 3 ML NEB INHALATION SCH ×3 (13:15→19:12)
[2020-04-13] MEDS ORDERED: LIDOCAINE 1% INJ 10MG/ML (20 ML MDV) SQ ONE (13:27)
[2020-04-13] MEDS ORDERED: IV FLUID CONTINUATION 1,000 ML IV ONE (13:30)
[2020-04-13] MEDS ORDERED: IOPAMIDOL-250 50ML BTL INTRAARTER ONE (14:17)
--- NOTE | 2020-04-13 14:46 | P.OP ---
Date of Procedure: 04/13/20 Description of Procedure: Preoperative diagnosis: [Massive pulmonary embolism, stage IIIB lung cancer, hemoptysis] Postoperative diagnosis: Same Procedure: [#1 ultrasound-guided right common femoral vein access #2 right iliofemoral venogram #3 selective right pulmonary angiogram #4 selective left pulmonary angiogram #5 mechanical suction thrombectomy with CAT8] Surgeon: Haylee Machado D.O. EBL: [500 mL] IV fluids: [See records] Urine output: [Not measured] Drains: [None] Complications: [None immediately apparent] Condition: [Stable to ICU] Operative indication and findings: [The patient is a 64-year-old male with a recent diagnosis of stage IIIB lung cancer and hemoptysis at that time which has resolved with radiation chemotherapy. He woke up yesterday with significant worsening shortness of breath and on evaluation was found to have significant thrombus in his pulmonary arteries bilaterally. He is hypotensive and diagnosed with a massive pulmonary embolism requiring small dose of pressor support. Given the fact that he has a recent significant bleeding it was discussed that he should not receive TPA catheter directed or systemically if he remained relatively stable on pressors. Given this discussion and the fact that he is maintaining his saturations on BiPAP and pressor support we did discuss with possibility of going forward with a suction thrombectomy. Risks and benefits were discussed with the patient and his seemingly understood and were willing to proceed] Procedure in detail: [The patient was taken to the operative suite and placed in supine position. The right common femoral vein was identified. The skin overlying was incised 1% lidocaine plain. Using Seldinger technique the vein is accessed and an 8-Thai sheath was placed. Guidewires and catheters were utilized to access the pulmonary artery and pressures were obtained. At that point the pressures read between 55-60. Pulmonic angiograms were performed post likely in the right and left pulmonary arteries revealing significant thrombus burden on the left and similarly on the right as well as visualization of the lesion on the right. Multiple passes were made with the CAT 8 suction thrombectomy catheter. There was improvement of the angiographic imaging although not complete resolution. Given the tortuosity and the large size of the pulmonary arteries there was not ability to traverse the entirety of the pulmonic artery with the 8-Thai catheter. Pressures were taken again followi ng the procedure and closer to the mid 40s to low 50s. There was improvement of the imaging with distal branches visualized. Catheters and wires removed. The sheath was removed and pressure was held until hemostasis was adequate.]
--- NOTE | 2020-04-13 15:32 | IR ---
Fluoroscopy HISTORY: Pulmonary embolism 18.1 minutes fluoroscopy time supplied to the referring clinician. 211 i ntraoperative C-arm images document the procedure. See dictated report from vascular surgery.
[2020-04-13] MEDS ORDERED: ONDANSETRON 4 MG TAB PO PRN (17:59)
[2020-04-13] MEDS ORDERED: LIDOCAINE VISCOUS 2% 15 ML CUP MUCOUS MEM PRN (17:59)
[2020-04-13] MEDS ORDERED: BENZONATATE 100 MG CAP PO PRN (17:59)
[2020-04-13] MEDS: METOPROLOL TARTRATE 25 MG TAB PO SCH (19:52)
[2020-04-13] MEDS ORDERED: ATORVASTATIN 40 MG TAB PO SCH (21:00)
--- NOTE | 2020-04-13 22:51 | P.HPIM ---
History of Present Illness H&P Date: 04/13/20 Chief Complaint: Acute pulmonary embolism, shortness of breath, severe chest pain and tightn 64-year-old gentleman one of Dr. Levin patient was seen early February for cavitation of the right upper lobe TB was excluded of the time, patient continued to have hemoptysis and was referred to [facility] where apparently had a procedure and intervention and ended up having biopsy done and was diagnosed with stage IV lung cancer, patient was referred to oncology Dr. Woodward along with radiation oncology Dr. Whittington and has been seen both lately. Patient presented to [facility] today with sudden onset of shortness of breath along with chest tightness and heaviness he was seen by the emergency physician ended up going for CTA which showed large bilateral pulmonary embolism with right-sided heart strain patient ended up being admitted to the ICU and supposed to see Dr. Machado for EKOS, found to be better candidate for thrombectomy and suction removal of clot. Patient was taken to the [facility] and he ended up having thrombectomy. Patient was transferred back to the ICU continue on heparin drip continue on BiPAP is still very symptomatic with severe dyspnea and shortness of breath. Review of Systems CONSTITUTIONAL: Well-developed mild respiratory distress EYES: No icterus sclerae, no conjunctivitis. EARS, NOSE, MOUTH, THROAT, and FACE: No sore throat, lymphadenopathy, carotid bruits or deformity. RESPIRATORY: Positive shortness of breath cough wheezes positive PND or total knee palpitation CARDIOVASCULAR: No CP, Palpitation, PND, Orthopnea, or angina. Quite bit tachycardia GASTROINTESTINAL: No Abd pain, Nausea or vomiting, no Diarrhea or constipation, No GI Bleed, no distention or masses. GENITOURINARY: Negative for Hematuria or UTI, no kidney stones. INTEGUMENT/BREAST: Negative for any muscular injury with mild osteoarthritis.. HEMATOLOGIC/LYMPHATIC: Negative for bleed or purpura. Stage IIIB lung cancer on chemo and radiation. MUSCULOSKELTAL: Negative for Myalgia or arthralgia. NEURLOGICAL: No LOC, Sz or syncope, blurred vision dizziness or abnormality.. BEHAVIORAL/PSYCH: Negative. ENDOCRINE: Negative. Past Medical History Past Medical History: Coronary Artery Disease (CAD), Cancer, Chest Pain / Angina, Hyperlipidemia, Myocardial Infarction ([place]) Additional Past Medical History / Comment(s): [facility] Last Myocardial Infarction Date:: unknown History of Any Multi-Drug Resistant Organisms: None Reported Past Surgical History: Heart Catheterization, Orthopedic Surgery Additional Past Surgical History / Comment(s): lung biopsy. Past Psychological History: No Psychological Hx Reported Smoking Status: Former smoker Past Alcohol Use History: Occasional Past Drug Use History: Marijuana Medications and Allergies Home Medications Medication Instructions Recorded Confirmed Type Atorvastatin [Lipitor] 40 mg PO HS 02/18/20 04/13/20 History Isosorbide Mononitrate ER [Imdur] 30 mg PO DAILY 02/18/20 04/13/20 History Metoprolol Tartrate 25 mg PO BID 02/18/20 04/13/20 History glyBURIDE/METFORMIN HCL 2 tab PO HS 02/18/20 04/13/20 History [glyBURIDE/METFORMIN HCL 5-500 mg] Benzonatate [Tessalon Perles] 100 mg PO TID PRN 04/13/20 04/13/20 History Dapagliflozin Propanediol [Farxiga] 10 mg PO DAILY 04/13/20 04/13/20 History Omeprazole 20 mg PO AC-BRKFST 04/13/20 04/13/20 History Ondansetron [Zofran] 4 mg PO Q6H PRN 04/13/20 04/13/20 History lidocaine HCL [Lidocaine HCl 10 - 15 ml MM ACHS PRN 04/13/20 04/13/20 History Viscous] Allergies Allergy/AdvReac Type Severity Reaction Status Date / Time No Known Allergies Allergy Verified 04/13/20 09:36 Physical Exam Vitals: Vital Signs Temp Pulse Resp BP Pulse Ox 04/13/20 17:00 121 H 16 87/58 97 04/13/20 16:45 125 H 15 88/73 96 04/13/20 16:30 120 H 21 107/84 97 04/13/20 16:15 121 H 21 108/79 98 04/13/20 16:03 122 H 04/13/20 16:00 118 H 22 100/64 98 04/13/20 15:56 123 H 04/13/20 15:45 122 H 16 89/68 98 04/13/20 15:30 123 H 12 87/71 97 04/13/20 15:15 121 H 21 106/73 95 04/13/20 15:00 120 H 21 143/71 97 04/13/20 14:45 121 H 15 97/61 90 L 04/13/20 14:40 120 H 14 143/71 96 04/13/20 12:50 115 H 21 91/68 97 04/13/20 12:40 115 H 13 114/86 97 04/13/20 12:30 113 H 26 H 89/67 97 04/13/20 12:20 115 H 19 89/67 98 04/13/20 12:10 114 H 21 89/64 98 04/13/20 12:00 114 H 15 86/62 98 04/13/20 11:50 114 H 15 86/62 98 04/13/20 11:40 114 H 21 102/51 92 L 04/13/20 11:30 115 H 12 87/73 93 L 04/13/20 11:10 97.7 F 114 H 15 83/67 98 04/13/20 10:51 97.8 F 112 H 24 83/69 98 04/13/20 09:56 110 H 24 80/60 98 04/13/20 09:24 113 H 24 89/63 100 04/13/20 09:04 116 H 22 94/42 96 04/13/20 08:37 97.8 F 120 H 18 82/62 96 Intake and Output 04/13/20 04/13/20 04/13/20 06:59 14:59 22:59 Intake Total 530 548.214 Output Total 1350 260 Balance -820 288.214 Intake: IV 410 360 0.9ns 360 360 Intake, IV Titration 120 188.214 Amount Heparin Sod,Pork in 0.45% 111.309 NaCl 25,000 unit In 0.45 % NaCl 1 250ml.bag @ 18 UNITS/KG/HR 16.329 mls/hr IV .[id number] DIA Rx#: [id number] Norepinephrine 4 mg In 76.905 Sodium Chloride 0.9% 250 ml @ 0.05 MCG/KG/MIN 17. 282 mls/hr IV .[id number] DIA Rx#:[id number] Sodium Chloride 0.9% 1, 120 000 ml @ 120 mls/hr IV . [id number] DIA Rx#:[id number] Output: Urine 500 260 Estimated Blood Loss 850 Other: Weight 90.718 kg General Appearance: Alert, cooperative, mild respiratory distress still have his BiPAP on. Neck HEENT: Supple, no lymphadenopathy, no thyroid enlargement, no carotid bruits. Lungs: Decreased breath some bilaterally with fine rhonchi positive crackles in the right middle and upper lobe positive mild inspiratory expected wheezes Chest Wall: Decrease expansion with deep inspiration no tenderness and no deformity was found on exam, no costochondral pain or discomfort. Heart: Regular rate and rhythm, S1, S2 normal, no murmur, rub or gallop. Back: Symmetric, no curvature, ROM normal, no CVA tenderness. Abdomen: Soft, non-tender, bowel sounds active all four quadrants, no masses, no organomegaly. Extremities: Extremities normal, atraumatic, no cyanosis or edema. Trace edema Pulses: 2+ and symmetric. Skin: Skin color, texture, tugor normal, no rashes or lesions. Neurologic: Alert oriented x3 cranial nerves II through XII intact, no motor deficit, no abnormal balance or gait. Results CBC & Chem 7: 04/13/20 09:04/13/20 09:03 Labs: Abnormal Lab Results - Last 24 Hours (Table) 04/13/20 04/13/20 04/13/20 Range/Units 09:03 09:03 09:03 RBC 4.17 L (4.30-5.90) m/uL Hgb 12.1 L (13.0-17.5) gm/dL Hct 37.5 L (39.0-53.0) % RDW 19.0 H (11.5-15.5) % Lymphocytes # 0.4 L (1.0-4.8) k/uL APTT (22.0-30.0) sec D-Dimer 9.48 H (<0.60) mg/L FEU VBG HCO3 (24-28) mmol/L Sodium 136 L (137-145) mmol/L Glucose 217 H (74-99) mg/dL POC Glucose (mg/dL) (75-99) mg/dL Plasma Lactic Acid Luis Miguel (0.7-2.0) mmol/L Total Bilirubin 1.4 H (0.2-1.3) mg/dL Troponin I (0.000-0.034) ng/mL 04/13/20 04/13/20 04/13/20 Range/Units 09:03 09:03 09:03 RBC (4.30-5.90) m/uL Hgb (13.0-17.5) gm/dL Hct (39.0-53.0) % RDW (11.5-15.5) % Lymphocytes # (1.0-4.8) k/uL APTT (22.0-30.0) sec D-Dimer (<0.60) mg/L FEU VBG HCO3 23 L (24-28) mmol/L Sodium (137-145) mmol/L Glucose (74-99) mg/dL POC Glucose (mg/dL) (75-99) mg/dL Plasma Lactic Acid Luis Miguel 2.8 H* (0.7-2.0) mmol/L Total Bilirubin (0.2-1.3) mg/dL Troponin I 0.399 H* (0.000-0.034) ng/mL 04/13/20 04/13/20 Range/Units 11:05 15:54 RBC (4.30-5.90) m/uL Hgb (13.0-17.5) gm/dL Hct (39.0-53.0) % RDW (11.5-15.5) % Lymphocytes # (1.0-4.8) k/uL APTT 37.5 H (22.0-30.0) sec D-Dimer (<0.60) mg/L FEU VBG HCO3 (24-28) mmol/L Sodium (137-145) mmol/L Glucose (74-99) mg/dL POC Glucose (mg/dL) 167 H (75-99) mg/dL Plasma Lactic Acid Luis Miguel (0.7-2.0) mmol/L Total Bilirubin (0.2-1.3) mg/dL Troponin I (0.000-0.034) ng/mL Thrombosis Risk Factor Assmnt - DVT/VTE Prophylaxis DVT/VTE Prophylaxis: Pharmacologic Prophylaxis ordered, Mechanical Prophylaxis ordered Assessment and Plan Assessment: 1 bilateral large pulmonary embolism with right heart strain: Patient ended up going for thrombectomy, continue heparin drip continue BiPAP supportive care and seen pulmonary regular basis. 2 severe dyspnea and shortness of breath along with acute respiratory failure: Patient is on BiPAP currently had quite bit strain on the pulmonary artery along with worsening shortness of breath with his PE patient to continue BiPAP might require mechanical ventilation. 3 recent diagnosis of stage IIIB lung cancer in the right upper lobe was referred for chemo and radiation. 4 hemoptysis: Patient is doing better so far since. 5 COPD: Patient to continue DuoNeb and Pulmicort steroid highly recommended as well. 6 previous history of BAL: Continue current management with pulmonary. 7 atherosclerotic heart disease and coronary disease: Patient seen cardiology and the medical management. 8 type 2 diabetes: Continue patient on Accu-Chek with sliding scales coverage he was on farxiga along with glyburide and metformin continue Accu-Chek sliding scales coverage. 9 hyperlipidemia: Remain on atorvastatin 40 mg daily. 10 hypertension: Remain on metoprolol titrate 25 mg twice a day continue isosorbide as well and if needed will add smaller dose of aby. 11 elevated troponin: No sign of [place] at this point continue current management with see cardiology and echocardiogram will be ordered. 12 GI prophylaxis: We'll continue patient on pantoprazole. CODE STATUS: Full code. Admit patient to the inpatient service for more than 2 night stay.
[2020-04-14 00:05] LABS: Glucose,Whole Blood 155 mg/dL (75-99)
[2020-04-14] MEDS: INSULIN ASPART (NovoLOG) 100 UNIT/ML VIAL SQ SCH ×4 (00:27→15:55)
[2020-04-14] MEDS: HEPARIN SOD,PORK IN 0.45% NACL 25,000 UNIT in 0.45% NACL 1 250ML.BAG IV SCH (00:27)
[2020-04-14] MEDS: NOREPINEPHRINE 4 MG in SODIUM CHLORIDE 0.9% 250 ML IV SCH ×2 (00:29→11:58)
[2020-04-14] MEDS ORDERED: ALPRAZolam 0.25 MG TAB PO PRN (02:24)
[2020-04-14 04:57] LABS: Anisocytosis Slight; Basophils # (A) 0.1 k/uL (0-0.2); Basophils % (A) 1 %; Eosinophils % (A) 1 %; HCT 29.4 % (39.0-53.0); Hypochromasia Moderate; Lymphocytes # (A) 0.8 k/uL (1.0-4.8); Lymphocytes % (A) 12 %; MCH 28.7 pg (25.0-35.0); MCHC 31.8 g/dL (31.0-37.0); MCV 90.3 fL (80.0-100.0); Macrocytosis Slight; Mean Platelet Volume 8.6; Monocytes # (A) 0.7 k/uL (0-1.0); Monocytes % (A) 11 %; Neutrophils # (A) 4.6 k/uL (1.3-7.7); Neutrophils % (A) 72 %; Platelet Count 191 k/uL (150-450); Poikilocytosis Slight; RBC 3.25 m/uL (4.30-5.90); RDW 19.7 % (11.5-15.5); WBC 6.3 k/uL (3.8-10.6)
[2020-04-14 05:00] LABS: ALT 18 U/L (4-49); AST 31 U/L (17-59); African American GFR (CKD) >90 (>60 ml/min/1.73 sqM); Albumin 2.6 g/dL (3.5-5.0); Alkaline Phosphatase 99 U/L (38-126); Anion Gap 10 mmol/L; Blood Urea Nitrogen 14 mg/dL (9-20); Calcium 7.9 mg/dL (8.4-10.2); Carbon Dioxide 16 mmol/L (22-30); Chloride 111 mmol/L (98-107); Glucose 124 mg/dL (74-99); HGB 9.3 gm/dL (13.0-17.5); Non-African American GFR(CKD) >90 (>60 ml/min/1.73 sqM); Sodium 137 mmol/L (137-145); Total Bilirubin 0.8 mg/dL (0.2-1.3); Total Protein 5.1 g/dL (6.3-8.2)
[2020-04-14] MEDS: SODIUM CHLORIDE 0.9% 1,000 ML IV SCH ×2 (05:11→12:00)
[2020-04-14] MEDS ORDERED: PANTOPRAZOLE 40 MG TABLET PO SCH (07:30)
--- NOTE | 2020-04-14 07:59 | XR ---
EXAMINATION TYPE: XR chest 1V portable DATE OF EXAM: 04/14/2020 COMPARISON: 04/13/2020 INDICATION: Acute PE TECHNIQUE: Single frontal view of the chest is obtained. FINDINGS: The heart size is normal. The pulmonary vasculature is normal. Mild infiltrate in the right perihilar region and at the costophrenic angle. Some mild infiltrate may be at the left base. IMPRESSION: 1. Developing left basilar, right perihilar and right costophrenic angle peripheral infiltrates. Foll ow-up is recommended
[2020-04-14] MEDS: IPRATROPIUM-ALBUTEROL 3 ML NEB INHALATION SCH ×3 (08:05→14:45)
[2020-04-14] MEDS ORDERED: NON FORMULARY DRUG (Dapagliflozin Propanediol [Farxiga] 10 MG Tablet) PO SCH (09:00)
[2020-04-14] MEDS ORDERED: ISOSORBIDE MONONITRATE ER 30 MG TAB.ER.24H PO SCH (09:00)
[2020-04-14] MEDS: METOPROLOL TARTRATE 25 MG TAB PO SCH (09:27)
--- NOTE | 2020-04-14 11:07 | US ---
EXAMINATION TYPE: US venous doppler duplex LE DATE OF EXAM: 04/14/2020 9:43 AM COMPARISON: NONE CLINICAL HISTORY: PE. left leg swelling, PE SIDE PERFORMED: Bilateral TECHNIQUE: The lower extremity deep venous system is examined utilizing real time linear array sonog kareem with graded compression, doppler sonography and color-flow sonography. VESSELS IMAGED: Common Femoral Vein Deep Femoral Vein Greater Saphenous Vein * Femoral Vein Popliteal Vein Small Saphenous Vein * Proximal Calf Veins (* superficial vessels) Right Leg: Negative for DVT, incidental of intimal thickening seen at right popiteal artery at mid l evel Left Leg: Negative for DVT IMPRESSION: 1. Bilateral lower extremity ultrasound negative for deep venous thrombosis. 2. Note is made of some atheromatous plaquing at the right popliteal artery
[2020-04-14] MEDS ORDERED: RX INFO: IV CONTRAST WAS GIVEN 1 EACH MISC MISCELLANE PRN (11:32)
[2020-04-14 11:39] LABS: Glucose,Whole Blood 149 mg/dL (75-99)
--- NOTE | 2020-04-14 11:43 | PN ---
PROGRESS NOTE PULMONARY/CRITICAL CARE PROGRESS NOTE: DATE OF SERVICE: April 14, 2020. This is a patient who was admitted to the hospital on April 13. I did a consult on him yesterday. He was recently diagnosed with stage IIIB lung cancer, adenocarcinoma type, at [facility]. The patient was initially at this institution for a number of days. He was here between February 17 and with hemoptysis. At that time, we did a bronchoscopy, brushes and washes of a large cavitary lesion in the right lower lobe. All the sampling was negative. Because of ongoing hemoptysis, he was transferred to [facility] for consideration of bronchial arteriography. Unfortunately, that failed. At the same time though, he did have a biopsy there which showed adenocarcinoma. The patient was admitted here with a diagnosis of bilateral large pulmonary emboli and right heart strain. Initially, we were going to give the patient some tPA, but we decided against it given his recent history of massive hemoptysis. The patient was started on IV heparin and he went to the operating room yesterday with Dr. Machado who did a suction extraction of clot from the pulmonary arteries. In addition, the patient recently started both chemo and radiation therapy for his stage IIIB adenocarcinoma of the lung. He sees Dr. Whittington for his radiation therapy and Dr. Woodward in Medical Oncology for his chemo. He was seen [facility] in the emergency room yesterday. Currently, the patient is on BiPAP. His settings include an IPAP of 10, EPAP of 5 and 40%. He remains on norepinephrine at 9 mcg/minute, saline at 120/mL an hour and heparin via weight based protocol. Dopplers of the lower extremities were apparently negative. We are going to trial the patient on either AIRVO or high-flow nasal cannula today. PHYSICAL EXAMINATION: VITAL SIGNS: Current vital signs are reviewed. Temperature is 98.9, heart rate is 118, respiratory rate 22, blood pressure 95/71, mean 79, saturations are 94%. He is on 10 L high flow cannula now. HEENT: Examination is grossly unremarkable. When we saw him, he was on BiPAP. NECK: Supple full range of motion. No adenopathy. Neck veins are flat. CARDIOVASCULAR: Examination reveals tachycardia. He has sinus tachycardia. Heart sounds are distant. LUNGS: Reveal scattered rhonchi. No wheezes or crackles. ABDOMEN: Soft. EXTREMITIES: Intact. No cyanosis, clubbing, or significant edema. SKIN: Without rash. NEUROLOGIC: Examination is brief but nonfocal. LABS: Reviewed. White count 6.3, hemoglobin 9.3, hematocrit 29.4, platelet count 191,000. PTT was 79.8. Sodium 137, potassium 4, chloride 111, CO2 16, anion gap is 10, BUN and creatinine were 14 and 0.61. Microbiology is currently pending or negative. IMAGING: Dopplers of lower extremities were done. They are not yet interpreted. Chest x-ray from today shows some bibasilar atelectasis or infiltrate. CURRENT MEDICATIONS: Reviewed. The patient is on Xanax, Lipitor, Tessalon Perles, Farxiga, IV heparin, insulin, DuoNeb, Imdur, metoprolol, Narcan, norepinephrine, Zofran, Protonix, and saline IV. ASSESSMENT: 1. Bilateral pulmonary emboli, with right heart strain, postop day #1, status post suction extraction of clot material from the pulmonary artery. 2. Recent diagnosis of lung cancer, adenocarcinoma, stage IIIB, possibly stage IV, with recent biopsy done at [facility]. 3. Recent initiation of both chemotherapy and radiation therapy for adenocarcinoma of the lung. 4. Hemoptysis, which required recent transferred to [facility] with failed bronchial arteriography. 5. Previous history of tobacco use. 6. Prior bronchoscopy with BAL, nondiagnostic. 7. History of coronary artery disease. 8. Angina pectoris. 9. Hyperlipidemia. 10.Prior history of myocardial infarction. 11.Status post heart catheterization. 12.Diabetes mellitus. 13.Obesity. PLAN: The patient remains on IV heparin. He is also on norepinephrine at 9 mcg/minute for blood pressure support. We will attempt the patient on either high-flow nasal cannula or AIRVO. He does not like the BiPAP device. Additional recommendations and suggestions are forthcoming. Case was thoroughly discussed with Dr. Machado yesterday. We decided tPA would not be indicated in this patient. We will continue to support this patient. Prognosis is guarded. Critical care time greater than 30 minutes. MMODL / IJN: [id number] /
[2020-04-14 12:10] VITALS: TEMP 98.2
--- NOTE | 2020-04-14 12:20 | P.PN ---
Subjective Progress Note Date: 04/14/20 Patient seen and examined. Overall feeling little better. Remains on small doses of pressor support. No longer needing BiPAP, on high flow per nasal cannula. States he has increasing weakness of his left upper extremity and inability to grab a hold onto a cup. Still with left lower extremity weakness. Objective - Vital Signs Vital signs: Vital Signs Temp 98.2 F 04/14/20 11:30 Pulse 108 H 04/14/20 11:30 Resp 27 H 04/14/20 11:30 BP 115/73 04/14/20 11:30 Pulse Ox 93 L 04/14/20 11:30 Intake & Output 04/13/20 04/14/20 04/14/20 18:59 06:59 18:59 Intake Total 9000.183 5014.683 939.957 Output Total 1660 810 505 Balance -461.786 996.683 434.957 Weight 90.718 kg 93.168 kg Intake: IV 890 1440 600 0.9ns 840 1440 120 Sodium Chloride 0.9% 1, 480 000 ml @ 120 mls/hr IV . Q8H20M DIA Rx#:[id number] Intake, IV Titration 308.214 366.683 339.957 Amount Heparin Sod,Pork in 0.45% 111.309 189.588 85.957 NaCl 25,000 unit In 0.45 % NaCl 1 250ml.bag @ 18 UNITS/KG/HR 16.329 mls/hr IV .[id number] DIA Rx#: [id number] Norepinephrine 4 mg In 76.905 177.095 254 Sodium Chloride 0.9% 250 ml @ 0.05 MCG/KG/MIN 17. 282 mls/hr IV .[id number] DIA Rx#:[id number] Sodium Chloride 0.9% 1, 120 000 ml @ 120 mls/hr IV . Q8H20M DIA Rx#:[id number] Output: Urine 810 810 505 Estimated Blood Loss 850 Other: Voiding Method Indwelling Catheter - Exam Gen. is a pleasant cooperative male no acute distress. O2 per nasal cannula high flow heart tachycardic but otherwise regular. Lungs clear. Abdomen soft. Access site in the groin clean, dry, intact. Extremities no clubbing, cyanosis or edema. Triphasic DP PT bilaterally. Normal motor sensory on the right lower extremity. Unable to move left lower extremity. Decreased mine wirer strength left upper extremity. Normal mood and affect - Labs CBC & Chem 7: 04/14/20 03:38 04/14/20 03:38 Labs: Abnormal Lab Results - Last 24 Hours (Table) 04/13/20 04/13/20 04/14/20 Range/Units 15:54 22:29 00:02 RBC (4.30-5.90) m/uL Hgb (13.0-17.5) gm/dL Hct (39.0-53.0) % RDW (11.5-15.5) % Lymphocytes # (1.0-4.8) k/uL APTT 37.5 H 124.3 H* (22.0-30.0) sec Chloride (98-107) mmol/L Carbon Dioxide (22-30) mmol/L Creatinine (0.66-1.25) mg/dL Glucose (74-99) mg/dL POC Glucose (mg/dL) 155 H (75-99) mg/dL Calcium (8.4-10.2) mg/dL Total Protein (6.3-8.2) g/dL Albumin (3.5-5.0) g/dL 04/14/20 04/14/20 04/14/20 Range/Units 03:38 03:38 03:38 RBC 3.25 L (4.30-5.90) m/uL Hgb 9.3 L D (13.0-17.5) gm/dL Hct 29.4 L (39.0-53.0) % RDW 19.7 H (11.5-15.5) % Lymphocytes # 0.8 L (1.0-4.8) k/uL APTT 79.8 H (22.0-30.0) sec Chloride 111 H (98-107) mmol/L Carbon Dioxide 16 L (22-30) mmol/L Creatinine 0.61 L (0.66-1.25) mg/dL Glucose 124 H (74-99) mg/dL POC Glucose (mg/dL) (75-99) mg/dL Calcium 7.9 L (8.4-10.2) mg/dL Total Protein 5.1 L (6.3-8.2) g/dL Albumin 2.6 L (3.5-5.0) g/dL 04/14/20 04/14/20 Range/Units 09:44 11:37 RBC (4.30-5.90) m/uL Hgb (13.0-17.5) gm/dL Hct (39.0-53.0) % RDW (11.5-15.5) % Lymphocytes # (1.0-4.8) k/uL APTT 76.4 H (22.0-30.0) sec Chloride (98-107) mmol/L Carbon Dioxide (22-30) mmol/L Creatinine (0.66-1.25) mg/dL Glucose (74-99) mg/dL POC Glucose (mg/dL) 149 H (75-99) mg/dL Calcium (8.4-10.2) mg/dL Total Protein (6.3-8.2) g/dL Albumin (3.5-5.0) g/dL Assessment and Plan Assessment: Massive pulmonary embolism, currently on pressor support Stage IIIB lung cancer, possibly stage IV Left lower extremity weakness Plan: Overall the patient is slightly improved from previous with decreasing O2 demand. Concern at this point with weakness that is progressing. Recommend a stat CT of the brain to rule out bleed and possibly a neurologic evaluation. This is discussed with critical care team. From my standpoint, no further interventions planned. Ultrasound the bilateral lower extremities showed no evidence of DVT. If no evidence of brain bleed, continue anticoagulation and transitioned to oral anticoagulation. Further care per primary and critical care team.
--- NOTE | 2020-04-14 12:31 | P.PN ---
Subjective 64-year-old gentleman one of Dr. Levin patient was seen early February for cavitation of the right upper lobe TB was excluded of the time, patient continued to have hemoptysis and was referred to [facility] where apparently had a procedure and intervention and ended up having biopsy done and was diagnosed with stage IV lung cancer, patient was referred to oncology Dr. Woodward along with radiation oncology Dr. Whittington and has been seen both lately. Patient presented to [facility] today with sudden onset of shortness of breath along with chest tightness and heaviness he was seen by the emergency physician ended up going for CTA which showed large bilateral pulmonary embolism with right-sided heart strain patient ended up being admitted to the ICU and supposed to see Dr. Machado for EKOS, found to be better candidate for thromb ectomy and suction removal of clot. Patient was taken to the label maker and he ended up having thrombectomy. Patient was transferred back to the ICU continue on heparin drip continue on BiPAP is still very symptomatic with severe dyspnea and shortness of breath. 04/14: Patient evaluated the ICU, he is status post suction extraction of clot material from the pulmonary atery.This morning was taken off the BiPAP and is currently 93% on 10L high flow. Overall breathing has improved from yesterday. Bilateral venous Doppler shows no evidence for DVT. Still requires small dose of epinephrine for hypotension. Labs are stable. Hgb 9.3, BUN 14, Cr 0.61, K 4.0, Na 137. Objective - Vital Signs Vital signs: Vital Signs Temp 98 F 04/14/20 04:00 Pulse 114 H 04/14/20 07:00 Resp 20 04/14/20 07:00 BP 99/72 04/14/20 07:00 Pulse Ox 95 04/14/20 07:00 Intake & Output 04/13/20 04/14/20 04/14/20 18:59 06:59 18:59 Intake Total 3932.670 9967.683 120 Output Total 1660 810 55 Balance -461.786 996.683 65 Weight 90.718 kg 93.168 kg Intake: IV 890 1440 120 0.9ns 840 1440 120 Intake, IV Titration 308.214 366.683 Amount Heparin Sod,Pork in 0.45% 111.309 189.588 NaCl 25,000 unit In 0.45 % NaCl 1 250ml.bag @ 18 UNITS/KG/HR 16.329 mls/hr IV .[id number] DIA Rx#: [id number] Norepinephrine 4 mg In 76.905 177.095 Sodium Chloride 0.9% 250 ml @ 0.05 MCG/KG/MIN 17. 282 mls/hr IV .[id number] DIA Rx#:[id number] Sodium Chloride 0.9% 1, 120 000 ml @ 120 mls/hr IV . Q8H20M DIA Rx#:[id number] Output: Urine 810 810 55 Estimated Blood Loss 850 - Exam General Appearance: Alert, cooperative, no distress Neck HEENT: Supple, no lymphadenopathy, no thyroid enlargement, no carotid bruits. Lungs: Decreased breath some bilaterally with fine rhonchi positive crackles in the right middle and upper lobe positive mild inspiratory expected wheezes Chest Wall: Decrease expansion with deep inspiration no tenderness and no de formity was found on exam, no costochondral pain or discomfort. Heart: Regular rate and rhythm, S1, S2 normal, no murmur, rub or gallop. Back: Symmetric, no curvature, ROM normal, no CVA tenderness. Abdomen: Soft, non-tender, bowel sounds active all four quadrants, no masses, no organomegaly. Extremities: Extremities normal, atraumatic, no cyanosis or edema. Trace edema Pulses: 2+ and symmetric. Skin: Skin color, texture, tugor normal, no rashes or lesions. Neurologic: Alert oriented x3 cranial nerves II through XII intact, no motor deficit, no abnormal balance or gait. - Constitutional General appearance: Present: cooperative, no acute distress - EENT Eyes: Present: EOMI, PERRLA, normal appearance ENT: Present: hearing grossly normal, normal oropharynx. Absent: pharyngeal erythema, thrush - Respiratory Respiratory: bilateral: diminished, rhonchi, wheezing, negative: dullness, rales - Cardiovascular Rhythm: regular Heart sounds: normal: S1, S2 Abnormal Heart Sounds: Absent: systolic murmur, diastolic murmur, rub - Gastrointestinal General gastrointestinal: Present: normal bowel sounds, soft. Absent: distended, hepatomegaly, organomegaly, tenderness - Integumentary Integumentary: Present: normal, normal turgor. Absent: cellulitis, cyanotic, rash - Neurologic Neurologic: Present: CNII-XII intact. Absent: focal deficits - Musculoskeletal Musculoskeletal: Present: strength equal bilaterally. Absent: right sided weakness, left sided weakness - Psychiatric Psychiatric: Present: A&O x's 3, appropriate affect, intact judgment & insight - Labs CBC & Chem 7: 04/14/20 03:38 04/14/20 03:38 Labs: Abnormal Lab Results - Last 24 Hours (Table) 04/13/20 04/13/20 04/13/20 Range/Units 09:03 09:03 09:03 RBC 4.17 L (4.30-5.90) m/uL Hgb 12.1 L (13.0-17.5) gm/dL Hct 37.5 L (39.0-53.0) % RDW 19.0 H (11.5-15.5) % Lymphocytes # 0.4 L (1.0-4.8) k/uL APTT (22.0-30.0) sec D-Dimer 9.48 H (<0.60) mg/L FEU VBG HCO3 (24-28) mmol/L Sodium 136 L (137-145) mmol/L Chloride (98-107) mmol/L Carbon Dioxide (22-30) mmol/L Creatinine (0.66-1.25) mg/dL Glucose 217 H (74-99) mg/dL POC Glucose (mg/dL) (75-99) mg/dL Plasma Lactic Acid Luis Miguel (0.7-2.0) mmol/L Calcium (8.4-10.2) mg/dL Total Bilirubin 1.4 H (0.2-1.3) mg/dL Troponin I (0.000-0.034) ng/mL Total Protein (6.3-8.2) g/dL Albumin (3.5-5.0) g/dL 04/13/20 04/13/20 04/13/20 Range/Units 09:03 09:03 09:03 RBC (4.30-5.90) m/uL Hgb (13.0-17.5) gm/dL Hct (39.0-53.0) % RDW (11.5-15.5) % Lymphocytes # (1.0-4.8) k/uL APTT (22.0-30.0) sec D-Dimer (<0.60) mg/L FEU VBG HCO3 23 L (24-28) mmol/L Sodium (137-145) mmol/L Chloride (98-107) mmol/L Carbon Dioxide (22-30) mmol/L Creatinine (0.66-1.25) mg/dL Glucose (74-99) mg/dL POC Glucose (mg/dL) (75-99) mg/dL Plasma Lactic Acid Luis Miguel 2.8 H* (0.7-2.0) mmol/L Calcium (8.4-10.2) mg/dL Total Bilirubin (0.2-1.3) mg/dL Troponin I 0.399 H* (0.000-0.034) ng/mL Total Protein (6.3-8.2) g/dL Albumin (3.5-5.0) g/dL 04/13/20 04/13/20 04/13/20 Range/Units 11:05 15:54 22:29 RBC (4.30-5.90) m/uL Hgb (13.0-17.5) gm/dL Hct (39.0-53.0) % RDW (11.5-15.5) % Lymphocytes # (1.0-4.8) k/uL APTT 37.5 H 124.3 H* (22.0-30.0) sec D-Dimer (<0.60) mg/L FEU VBG HCO3 (24-28) mmol/L Sodium (137-145) mmol/L Chloride (98-107) mmol/L Carbon Dioxide (22-30) mmol/L Creatinine (0.66-1.25) mg/dL Glucose (74-99) mg/dL POC Glucose (mg/dL) 167 H (75-99) mg/dL Plasma Lactic Acid Luis Miguel (0.7-2.0) mmol/L Calcium (8.4-10.2) mg/dL Total Bilirubin (0.2-1.3) mg/dL Troponin I (0.000-0.034) ng/mL Total Protein (6.3-8.2) g/dL Albumin (3.5-5.0) g/dL 04/14/20 04/14/20 04/14/20 Range/Units 00:02 03:38 03:38 RBC 3.25 L (4.30-5.90) m/uL Hgb 9.3 L D (13.0-17.5) gm/dL Hct 29.4 L (39.0-53.0) % RDW 19.7 H (11.5-15.5) % Lymphocytes # 0.8 L (1.0-4.8) k/uL APTT (22.0-30.0) sec D-Dimer (<0.60) mg/L FEU VBG HCO3 (24-28) mmol/L Sodium (137-145) mmol/L Chloride 111 H (98-107) mmol/L Carbon Dioxide 16 L (22-30) mmol/L Creatinine 0.61 L (0.66-1.25) mg/dL Glucose 124 H (74-99) mg/dL POC Glucose (mg/dL) 155 H (75-99) mg/dL Plasma Lactic Acid Luis Miguel (0.7-2.0) mmol/L Calcium 7.9 L (8.4-10.2) mg/dL Total Bilirubin (0.2-1.3) mg/dL Troponin I (0.000-0.034) ng/mL Total Protein 5.1 L (6.3-8.2) g/dL Albumin 2.6 L (3.5-5.0) g/dL 04/14/20 Range/Units 03:38 RBC (4.30-5.90) m/uL Hgb (13.0-17.5) gm/dL Hct (39.0-53.0) % RDW (11.5-15.5) % Lymphocytes # (1.0-4.8) k/uL APTT 79.8 H (22.0-30.0) sec D-Dimer (<0.60) mg/L FEU VBG HCO3 (24-28) mmol/L Sodium (137-145) mmol/L Chloride (98-107) mmol/L Carbon Dioxide (22-30) mmol/L Creatinine (0.66-1.25) mg/dL Glucose (74-99) mg/dL POC Glucose (mg/dL) (75-99) mg/dL Plasma Lactic Acid Luis Miguel (0.7-2.0) mmol/L Calcium (8.4-10.2) mg/dL Total Bilirubin (0.2-1.3) mg/dL Troponin I (0.000-0.034) ng/mL Total Protein (6.3-8.2) g/dL Albumin (3.5-5.0) g/dL Assessment and Plan Plan: 1 bilateral large pulmonary embolism with right heart strain: status post thrombectomy, continue heparin drip continue high flow O2, off Bipap, pulmonary on consult 2 severe dyspnea and shortness of breath along with acute respiratory failure: Patient is high flow O2 currently, doing better status post thrombectomy 3 recent diagnosis of stage IIIB lung cancer in the right upper lobe was referred for chemo and radiation. 4 hemoptysis: Patient is doing better so far since. 5 COPD: Patient to continue DuoNeb and Pulmicort steroid highly recommended as well. 6 previous history of BAL: Continue current management with pulmonary. 7 atherosclerotic heart disease and coronary disease: Patient seen cardiology and the medical management. 8 type 2 diabetes: Continue patient on Accu-Chek with sliding scales coverage he was on farxiga along with glyburide and metformin continue Accu-Chek sliding scales coverage. 9 hyperlipidemia: Remain on atorvastatin 40 mg daily. 10 hypertension: Remain on metoprolol titrate 25 mg twice a day continue isosorbide as well and if needed will add smaller dose of aby. 11 elevated troponin: No sign of MN at this point continue current management with see cardiology and echocardiogram will be ordered. 12 GI prophylaxis: We'll continue patient on pantoprazole. CODE STATUS: Full code. Admit patient to the inpatient service for more than 2 night stay. The above impression and plan of care have been discussed and directed by signing physician. Merly Reynoso nurse practitioner acting as scribe for signing physician.
--- NOTE | 2020-04-14 12:50 | CDI ---
Documentation Clarification Form Date: 04/14/2020 12:37:47 PM From: Rani Mayo CCS, CCDS Admit Date: 04/13/2020 10:11:00 AM Patient Name: Tamela Graff Visit Number: [id number] Discharge Date: ATTENTION: The Clinical Documentation Specialists (CDI) and [facility] Coding Staff appreciate your assistance in clarifying documentation. Please respond to the clarification below the line at the bottom and electronically sign. The CDI & [facility] Coding staff will review the response and follow-up if needed. Please note: Queries are made part of the Legal Health Record. If you have any questions, please contact the author of this message via ITS. Dr. Everardo Ann: Per the 04/13 Pulmonary/Critical Care Consult & subsequent 04/14 Progress Note: "Bilateral pulmonary emboli, with right heart strain, postop day #1, status post suction extraction of clot material from the pulmonary artery. " History/Risk Factors: Recent initiation of chemotherapy & radiation for newly diagnosed adenocarcinoma of the lung. Former smoker, CAD with angina pectoris, Hyperlipidemia, IA status post Heart Catheterization, DM, Obesity w/BMI 34.2. Clinical Indicators: Presented to the ED on 04/13 with Weakness & SOB, found to have bilateral Pulmonary Embolisms. Procedure 04/13: Suction Thrombectomy bilateral pulmonary arteries. 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 CT Chest: Central bilateral large PE with right heart strain. RLL Infiltrate. Treatment 04/13: IV fluid 1,000 mls @ 999 mls/hr q1 x2, IV Heparin drip, IV fluid 1,000 mls @ 120 mls/hr q8, IV Levophed, INH Duoneb, O2 4Lnc - BiPAP. Suction Thrombectomy. In your professional opinion, can you please clarify if the following condition is present and include if Present on Admission: Acute Cor pulmonale Chronic Cor pulmonale Unable to determine Other, please specify Please specify cause if known: (Last Revision: January 2017) ____Acute right heart strain/acute cor pulmonale MTDD
--- NOTE | 2020-04-14 13:25 | CT ---
EXAMINATION TYPE: CT brain wo/w con DATE OF EXAM: 04/14/2020 COMPARISON: 05/03/2008 HISTORY: 64-year-old male Left sided weakness. Rule out bleed. TECHNIQUE: Examination was done in axial plane before and after administration of 100 mL Isovue-370 intravenous contrast. Coronal and sagittal reconstructions performed. CT DLP: 2298.4 mGycm Automated exposure control for dose reduction was used. FINDINGS: There is a 3.3 x 3.2 x 2.6 cm area of acute intraparenchymal hemorrhage within the posterior superior right frontal lobe with a hematocrit level suggesting anticoagulation status. There is minimal surrounding edema but no midline shift. No extra axial fluid collection seen. No her niation or hydrocephalus. Additional areas of bleeding are present in the posterior cerebellar hemispheres on both sides measur ing 2.0 cm on the right and 2.2 cm on the left also with hematocrit levels. No downward transtentoria l herniation is seen Dural venous sinuses are patent. No definite acute intracranial enhancement is identified. IMPRESSION: 1. A 3.3 cm focus of acute intraparenchymal hematoma in the posterior superior right frontal lobe. Th ere is a hematocrit level suggesting concurrent anticoagulated state. Clinically correlate. 2. There are 2 additional similar intraparenchymal hematomas in the right and left cerebellar hemisph eres measuring 2.0 and 2.2 cm, respectively. 3. No significant mass effect or midline shift at this time. Critical findings called to nurse Guerrero on 2SICU at 1:20 PM.
[2020-04-14 16:55] VITALS: BP 100/78; PULSE 113; RESP 27
[2020-04-14 19:13] LABS: Hemoglobin A1C 7.2 % (4.0-6.0)
== END 2020-04-14 17:01 | disposition hospice, home (50) | DRG 163 ==
LOC: EC 08:33 → 2SICU 10:11
PROVIDERS: ADMIT Internal Medicine Geriatric Medicine; ATTEND Internal Medicine Geriatric Medicine
PROC: 02CQ3ZZ Extirpation of Matter from Right Pulmonary Artery, Percutaneous Approach (ICD-10-PCS; principal; 2020-04-13 15:10)
PROC: B31S1ZZ Fluoroscopy of Right Pulmonary Artery using Low Osmolar Contrast (ICD-10-PCS; principal; 2020-04-13 15:10)
PROC: B51B1ZZ Fluoroscopy of Right Lower Extremity Veins using Low Osmolar Contrast (ICD-10-PCS; principal; 2020-04-13 15:10)
PROC: B31T1ZZ Fluoroscopy of Left Pulmonary Artery using Low Osmolar Contrast (ICD-10-PCS; principal; 2020-04-13 15:10)
PROC: 02CR3ZZ Extirpation of Matter from Left Pulmonary Artery, Percutaneous Approach (ICD-10-PCS; principal; 2020-04-13 15:10)
PROC: 3E033XZ Introduction of Vasopressor into Peripheral Vein, Percutaneous Approach (ICD-10-PCS; 2020-04-13 15:10)
PROC: 5A09357 Assistance with Respiratory Ventilation, Less than 24 Consecutive Hours, Continuous Positive Airway Pressure (ICD-10-PCS; 2020-04-13 15:10)
DX: I26.09 Other pulmonary embolism with acute cor pulmonale (principal); J96.00 Acute respiratory failure, unspecified whether with hypoxia or hypercapnia; C34.11 Malignant neoplasm of upper lobe, right bronchus or lung; E87.2 Acidosis; R04.2 Hemoptysis; E11.41 Type 2 diabetes mellitus with diabetic mononeuropathy; E66.9 Obesity, unspecified; Z68.34 Body mass index [BMI] 34.0-34.9, adult; E78.5 Hyperlipidemia, unspecified; I25.119 Atherosclerotic heart disease of native coronary artery with unspecified angina pectoris; I25.2 Old myocardial infarction; K21.9 Gastro-esophageal reflux disease without esophagitis; Z79.84 Long term (current) use of oral hypoglycemic drugs; Z79.899 Other long term (current) drug therapy; Z85.118 Personal history of other malignant neoplasm of bronchus and lung; Z87.891 Personal history of nicotine dependence; Z20.828 Contact with and (suspected) exposure to other viral communicable diseases; Z51.5 Encounter for palliative care; R79.89 Other specified abnormal findings of blood chemistry
CPT/HCPCS: 36415; 37184; 70470; 71045; 71275; 75743; 80053; 82550; 82803; 83036; 83605; 83735; 83880; 84484; 85025; 85379; 85610; 85730; 86850; 86900; 86901; 87635; 93005; 93970; 94640; 94660; 96360; 99291